=== PATIENT | male | born 1940 | race Caucasian/White ===

== ENCOUNTER 2016-12-25 21:56 | Emergency (ER) | payer OTHER ==
[~2016-12-25] VITALS: Ht 165.1 cm; Wt 83.6 kg
[~2016-12-25 21:56] MED LIST: ASPCH81X PO; ATEN-173 PO; CEPH500C2 PO; SIMV20TA2 PO
[2016-12-25 21:59] VITALS: TEMP 36.6; Ht 165.1 cm; Wt 83.6 kg
[2016-12-25] MEDS ORDERED: NEOMYCIN/POLYMYX/BACITR OINT 15 GM TUBE EXT STA (22:30)
[2016-12-25] MEDS ORDERED: AMOXICIL/CLAVU 875MG HOME PACK PO ONE (22:30)
[2016-12-25] MEDS ORDERED: AMOXICILLIN/CLAVULANATE TAB 875 MG TAB PO ONE (22:30)
--- NOTE | 2016-12-25 22:39 | EMERGENCY ROOM VISIT NOTE ---
History Report prepared by Luisito: Sarita Vogt Under the Supervision of: Dr. Alphonso De Los Santos D.O. First contact with patient: 22:07 Chief Complaint: BITE Stated Complaint: SPIDER BITE ON ELBOW, RED SWOLLEN-RIGHT History of Present Illness The patient is a 76 year old male who presents to the Emergency Room with complaints of worsening swelling of the right elbow starting 2 days [place]. The patient states that he noticed the swelling on his elbow and his tried to drain the swelling and a clear fluid was drained. The patient denies any recent fever, chills or leg pain. Source of History: patient Onset: 2 days [place] Position: elbow (right) Timing: worsening Associated Symptoms: No chills, No fevers Note: Patient denies any leg pain. Review of Systems See HPI for pertinent positives & negatives. A total of 10 systems reviewed and were otherwise negative. Past Medical & Surgical Medical Problems: (1) ABDOM AORTIC ANEURYSM (2) Benign hypertension (3) HYPERLIPIDEMIA NEC/NOS Family History Diabetes mellitus FH: heart disease Social History Smoking Status: Former Smoker Smokeless Tobacco Use: Yes Drug Use: none Marital Status: Housing Status: lives with family Occupation Status: retired Current/Historical Medications Scheduled Amoxicillin & Pot Clavulanate (Augmentin 875-125 mg), 875 MG PO BID Aspirin (Aspirin Chewable), 81 MG PO DAILY Atenolol (Tenormin), 25 MG PO DAILY Simvastatin (Zocor), 20 MG PO QPM Allergies Coded Allergies: No Known Allergies (Unverified , 12/25/16) Physical Exam Vital Signs Date Time Temp Pulse Resp B/P Pulse Ox O2 Delivery O2 Flow Rate FiO2 12/25/16 23:38 66 18 113/71 98 Room Air 12/25/16 21:59 36.6 71 16 124/81 97 Room Air Physical Exam GENERAL: Patient is awake, alert, and in no acute distress. Patient is resting comfortably and showing no signs of anxiety EYES: The conjunctivae are clear. The pupils are round and reactive. EARS, NOSE, MOUTH AND THROAT: The nose is without any evidence of any deformity. Mucous membranes are moist tongue is midline NECK: The neck is nontender and supple. RESPIRATORY: Normal respiratory effort is noted there is no evidence of wheezing rhonchi or rales CARDIOVASCULAR: Regular rate and rhythm noted there no murmurs rubs or gallops normal S1 normal S2 GASTROINTESTINAL: The abdomen is soft. Bowel sounds are present in all quadrants. Abdomen is nontender MUSCULOSKELETAL/EXTREMITIES: There is no evidence of gross deformity full range of motion is noted in the hips and shoulders. Mild erythema and swelling over the right olecronon. Small area of clear drainaged noted. No decrease in ROM of right elbow and ROM not painful. SKIN: There is no obvious evidence of any rash. There are no petechiae, pallor or cyanosis noted. Mild erythema and swelling. Trace pedal edema bilaterally. NEUROLOGIC: Patient is awake alert and oriented x3 strength is symmetric patellar reflexes are 2+ bilaterally Medical Decision & Procedures ER Provider Diagnostic Interpretation: X-ray results as stated below per interpretation by me: Elbow X-Ray: Degenerative changes noted, no definite fracture, small amount of air in the soft tissue over line the olecranon. Medications Administered Medications (Trade) Dose Ordered Sig/Preethi Route Start Time Stop Time Status Last Admin Dose Admin Amoxicillin/ Clavulanate Potassium (Augmentin 875MG Home Pack) 1 homepack UD ONCE PO 12/25/16 22:30 12/25/16 22:33 DC 12/25/16 22:58 1 HOMEPACK Amoxicillin/ Clavulanate Potassium (Augmentin Tab) 875 mg NOW ONCE PO 12/25/16 22:30 12/25/16 22:33 DC 12/25/16 22:58 875 MG Neomycin/ Polymyxin/ Bacitracin (Neosporin Oint) 1 appln ONE STAT EXT 12/25/16 22:30 12/25/16 22:33 DC 12/25/16 22:58 1 APPLN ED Course 2226: The patient was evaluated in room A3. A complete history and physical examination were performed. 2229: Ordered Neosporin Oint 1 appln EXT, Augmentin Tab 875 mg PO, Augmentin 875 mg Home Pack 1 homepack PO. 2300: Upon reevaluation, the patient is hemodynamically stable. I discussed the results and treatment plan with him. he verbalized agreement of the treatment plan. The patient was discharged home. Medical Decision The patient's history was concerning for swelling and redness of the skin. Differential diagnosis: Etiologies such as cellulitis, abscess, MRSA infection, DVT, necrotizing fasciitis, dermatitis, drug eruption, as well as others were entertained.. Nursing notes reviewed. The patient is a 76-year-old male who presented to the emergency department for an evaluation of right elbow swelling. The patient's significant other's wheeze the area until she got clear drainage out of it. She was concerned that it could be a spider bite or some other type of infection. There was erythema over the elbow but there was no significant swelling. The range of motion appeared painless I do not feel this is infection in the joint. Rather I feel is likely an infection of olecranon bursitis. The patient was started on antibiotics in the emergency department. A culture the drainage was obtained. X-rays did show some air in the soft tissue. I do not feel there is any bony abnormality represented on plain x-ray. I discussed the patient's results with him. He was encouraged to continue doing a triple antibiotic dressing as well as continue the antibiotics as prescribed. He was also encouraged to follow-up with his family doctor this week for reevaluation but return to the emergency department immediately if symptoms change worsen or the need arises. Impression Primary Impression: Olecranon bursitis Additional Impression: Cellulitis Scribe Attestation The scribe's documentation has been prepared under my direction and personally reviewed by me in its entirety. I confirm that the note above accurately reflects all work, treatment, procedures, and medical decision making performed by me. Departure Information Dispostion Home / Self-Care Prescriptions Amoxicillin & Pot Clavulanate (Augmentin 875-125 mg) 1 Tab Tab 875 MG PO BID for 7 Days, #14 TAB Prov: Alphonso De Los Santos, 12/25/16 Referrals Poncho Dillon M.D. (PCP) Forms HOME CARE DOCUMENTATION FORM, IMPORTANT VISIT INFORMATION Patient Instructions My [facility] Additional Instructions Continue all medications as prescribed. Continue to put triple antibiotic ointment to the area over the right elbow 2 times a day. Continue taking Motrin and Tylenol as directed for pain. Follow-up with your family this week for reevaluation but return to the emergency Department immediately if symptoms change worsen or if the need arises. Problem Qualifiers
[2016-12-25] MEDS ORDERED: AMOX875T PO (23:34)
[2016-12-25 23:38] VITALS: BP 113/71; PULSE 66; O2SAT 98
--- NOTE | 2016-12-26 06:52 | DIAGNOSTIC IMAGING REPORT ---
RIGHT ELBOW MIN 3 VIEWS ROUTINE CLINICAL HISTORY: Right elbow pain and swelling. No recent trauma. COMPARISON: None FINDINGS: Alignment of the right elbow is anatomic. There is no acute fracture or suspicious osseous lesion. There is no joint effusion. There is moderate spurring of the olecranon at the insertion of the triceps with mild soft tissue swelling. There is irregularity of the medial lateral condyle with calcifications likely within the common flexor and extensor tendons. IMPRESSION: 1. No acute fracture or joint effusion the right elbow. 2. Irregularity of the medial and lateral epicondyles with calcifications likely within the common flexor and extensor tendons. The findings are chronic. 3. Moderate spurring of the olecranon at the insertion of the triceps. Electronically signed by: Paolo Perea M.D. 12/26/2016 6:51 AM Dictated Date/Time: 12/26/2016 6:49 AM
== END 2016-12-26 00:03 | disposition home or self-care (01) ==
LOC: C.EDB 21:58 → C.EDA 12-26 00:03
DX: M70.21 Olecranon bursitis, right elbow (principal); L03.115 Cellulitis of right lower limb; I10 Essential (primary) hypertension; E78.5 Hyperlipidemia, unspecified; Z87.891 Personal history of nicotine dependence; Z79.82 Long term (current) use of aspirin; Z79.899 Other long term (current) drug therapy; Z83.3 Family history of diabetes mellitus; Z82.49 Family history of ischemic heart disease and other diseases of the circulatory system

== ENCOUNTER 2019-10-04 15:06 | Inpatient (IN) ==
--- OUTSIDE RECORDS SUMMARY | 2019-10-04 15:09 | External Medical Summary | Continuity of Care Document ---
:1940 Author Name Shailesh Mai Address Unavailable Unavailable , Care Team Providers Name Role Phone Quintin Mai Unavailable [email or web address] [email or web address], UNKNOWN Unavailable Unavailable Problems Active medical history not documented Allergies and Adverse Reactions Allergy history not documented Medications Medications not documented Procedures Procedures not documented Immunizations Immunizations not documented Plan of Treatment Planned Observations Planned Goals not documented Results No Known Results Results not documented
[2019-10-04] MEDS ORDERED: ACETAMINOPHEN 325 MG TAB PO STA (16:17)
[2019-10-04 16:42] LABS: Appearance Urine Clear (Clear); Bacteria Urine Automated Negative (Negative); Bilirubin Urine Negative (Negative); Blood Urine 2+ (Negative); Color Urine Dark Yellow; Epithelial Cell Urine Auto 20-30 /lpf (0-5); Glucose Urine UA Negative (Negative); Ketones Urine Negative (Negative); Leukocyte Esterase Urine Negative (Negative); Nitrite Urine Negative (Negative); Protein Urine 2+ (Negative); RBC Urine Automated >30 /hpf (0-4); Urobilinogen Urine Negative (Negative)
--- NOTE | 2019-10-04 16:48 | XRay Report ---
XR chest 1V portable CLINICAL HISTORY: fever eval for pna dyspnea COMPARISON STUDY: 04/26/2018 FINDINGS: A slight increase in interstitial prominence throughout both hemithoraces. Mildly tortuous thoracic aorta. No focal or consolidative infiltrative change. IMPRESSION: Mild bilateral interstitial prominence. The above report was generated using voice recognition software. It may contain grammatical, syntax or spelling errors. Electronically signed by: Crispin Arvizu M.D. 10/04/2019 4:46 PM
[2019-10-04 17:05] LABS: Alanine Aminotransferase 57 U/L (12-78); Albumin Level 3.3 gm/dl (3.4-5.0); Aspartate Aminotransferase 56 U/L (15-37); BUN Creatinine Ratio 17.7 (10-20); Blood Urea Nitrogen 21 mg/dl (7-18); Calcium 8.8 mg/dl (8.5-10.1); Carbon Dioxide 25 mmol/L (21-32); Chloride 100 mmol/L (98-107); Est GFR (African American) 70.5; Est GFR (Non-African American) 60.8; Glucose 117 mg/dl (70-99); Potassium 4.1 mmol/L (3.5-5.1); Sodium 132 mmol/L (136-145)
[2019-10-04 17:10] LABS: Alkaline Phosphatase 61 U/L (45-117); Globulin 3.3 gm/dl (2.5-4.0); Total Protein 6.6 gm/dl (6.4-8.2); Troponin I < 0.015 ng/ml (0-0.045)
--- NOTE | 2019-10-04 17:19 | CT Scan Report ---
CT head/brain wo con CT DOSE: 994.59 mGy.cm HISTORY: Mental status change CHAN eval for bleed TECHNIQUE: Multiaxial CT images of the head were performed without the use of intravenous contrast. A dose lowering technique was utilized adhering to the principles of ALARA. Comparison: None. Findings: The paranasal sinuses and mastoid air cells are clear. The calvarium and skull base are int act. The ventricles and sulci are within normal limits. There is no mass, hematoma, midline shift, or acute infarct. Findings of age-related atrophy and chronic small vessel change Impression: No acute intracranial abnormality. Age-related change as discussed. The above report was generated using voice recognition software. It may contain grammatical, syntax or spelling errors. Electronically signed by: Crispin Arvizu M.D. 10/04/2019 5:18 PM
[2019-10-04 18:37] LABS: Basophils # (auto) 0.01 K/uL (0-0.2); Basophils % (auto) 0.2 %; Hematocrit (blood only) 39.5 % (42-52); Hemoglobin 13.5 g/dL (14.0-18.0); Immature Granulocytes # (auto) 0.01 K/uL (0.00-0.02); Immature Granulocytes % (auto) 0.2 %; Lymphocytes # (auto) 0.75 K/uL (1.2-3.4); Lymphocytes % (auto) 14.2 %; Mean Corpuscular Hemoglobin 32.1 pg (25-34); Mean Corpuscular Hgb Conc 34.2 g/dL (32-36); Mean Platelet Volume 10.1 fL (7.4-10.4); Monocytes % (auto) 5.7 %; Neutrophils # (auto) 4.21 K/uL (1.4-6.5); Neutrophils % (auto) 79.7 %; Platelet Count 88 K/uL (130-400); Platelet Estimate Decreased (Normal); RDW Coefficient of Variation 13.6 % (11.5-14.5); RDW Standard Deviation 47.3 fL (36.4-46.3); White Blood Count 5.28 K/uL (4.8-10.8)
--- NOTE | 2019-10-04 19:59 | History & Physical Report ---
Date of Service October 04, 2019 Assessment & Plan (1) Fever: (2) Generalized weakness: Pt is 78 y/o M with PMH CAD s/p WALKER to [facility] in 03/2018, AAA s/p repair, HTN, dyslipidemia, DM II presented with c/o generalized weakness, myalgias, CHAN x 3 days. C/O fever 101F yesterday and 102F today. No cough, SOB, N/V/D. Denies known tick bites or ill contacts, recent travel, rashes. Was started on doxycycline yesterday for possible lyme disease. Yesterday outpatient with normal CK. In ER afebrile, P: 83, R: 20, BP: 123/69, 97% on RA. WBC: 5, H/H: 13.5/39.5, Plt: 88, Na: 132, BUN: 21, Cr: 1.16, GFR: 60.8, POC Lactic acid: 0.91, Negative flu swab, UA not consistent with UTI CT Head: no acute changes CXR: no infiltrate -Had negative Lyme titer yesterday at clinic -Peripheral smear to r/o anaplasmosis -Blood cultures pending -Urine culture pending -Given Tylenol in ER with resolution of CHAN and improvement of myalgias and reported decreased weakness -Zosyn for now -CBC, BMP in am (3) Coronary artery disease: CAD s/p WALKER to RCA in 03/2018 No CP, SOB -Continue ASA, metoprolol, atorvastatin, Effient (4) Diabetes mellitus, type II: A1c: 6.1 on08/15/19 -Hold metformin -Novolog sliding scale per protocol (5) HTN (hypertension): Stable -Continue metoprolol DVT Prophylaxis -SCDs for now with low Plt Full Code as per discussion with pt Follows with Dr Dillon for routine care Pt was seen and care coordinated with Dr Devine. See addendum History of Present Illness Chief Complaint: Weakness Primary Care Provider: Poncho Dillon MD Pt is 78 y/o M with PMH CAD s/p WALKER to RCA in 03/2018, AAA s/p repair, HTN, dyslipidemia, DM II presented to ER with c/o weakness, myalgias x 3 days. C/O fever 101F yesterday and 102F today. C/O diffuse myalgias and generalized weakness. C/O frontal/parietal CHAN for past 2-3 days. Pt states took Aleve yesterday without relief of CHAN. 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 Denies diaphoresis, N/V/D/C, CHAN, dizziness, syncope, vision changes, neck pain, photophobia, CP, SOB, orthopnea, palpitations, cough, sore throat, choking, otalgia, rhinorrhea, abdominal pain, paresthesias, extremity edema, rashes, urinary symptoms, known tick bites. Denies ill contacts, recent travel. Had influenza vaccine 07/2019. Pt seen by PCP yesterday. Was started on doxycycline for possible Lyme. Had negative Lyme titer yesterday. Also had CK WNL, WBC: 6.9, Plt: 125, TSH: 1.1. Allergies Allergy/AdvReac Type Severity Reaction Status Date / Time No Known Allergies Allergy Verified 10/04/19 16:52 Home Medications Home Medications Medication Instructions Recorded Confirmed Type aspirin 81 mg PO DAILY 10/04/19 10/04/19 History atorvastatin 40 mg PO QAM 10/04/19 10/04/19 History doxycycline hyclate 100 mg PO BID 10/04/19 10/04/19 History metformin 500 mg PO BIDM 10/04/19 10/04/19 History metoprolol succinate 25 mg PO QAM 10/04/19 10/04/19 History nitroglycerin 0.4 mg SUBLINGUAL DIRECTED PRN 10/04/19 10/04/19 History prasugrel 10 mg PO QAM 10/04/19 10/04/19 History Past Med/Surg History Medical History Diabetes mellitus, type II (Chronic) Dyslipidemia (Chronic) HTN (hypertension) (Chronic) Coronary artery disease (Chronic) Surgical History S/P AAA repair (Chronic) History of cardiac cath (Chronic) 03/2018 - WALKER to [facility] No pertinent past surgical history Family History Other Cancer Diabetes Heart disease Hypertension Social History Feels Safe at Home: Yes Smoking Status: Current every day smoker Hx Alcohol Use: No Hx Substance Use: No Review of Systems Review of Systems: All systems reviewed & are unremarkable except as noted in HPI & below Physical Exam Physical Exam: General: no distress, WDWN Head: normocephalic, atraumatic Eyes: PERRL, EOM's intact, conjunctiva non-injected, anicteric ENT: normal inspection external ears, nose, mucous membranes moist Neck: supple, trachea midline, non-tender Lungs: clear, no respiratory distress, no wheezing/rhonchi/rales CV: RRR, no murmur, no pretibial edema Abd: normal BS, soft, non-tender Ext: no cyanosis, no calf tenderness; strength 4/5 throughout Neuro: A&O x 3, no focal deficits noted, normal affect Skin: warm, dry Results & Data Vital Signs (Past 12 Hours) Vital Signs Temp Pulse Resp BP Pulse Ox 10/04/19 19:01 68 19 96 10/04/19 19:00 65 21 114/66 97 10/04/19 18:31 69 20 97 10/04/19 18:30 70 24 116/69 95 10/04/19 18:01 70 21 95 10/04/19 18:00 70 24 114/66 95 10/04/19 17:31 76 26 H 95 10/04/19 17:30 74 26 H 119/65 95 10/04/19 17:05 80 27 H 94 10/04/19 17:03 79 23 115/62 94 10/04/19 15:27 37.5 C 83 20 123/69 97 Laboratory Results Short CBC 10/04/19 10/04/19 10/04/19 Range/Units 16:25 16:25 17:47 WBC Cancelled 5.28 Hgb Cancelled 13.5 L Hct Cancelled 39.5 L Plt Count Cancelled 88 L Sodium 132 L (136-145) mmol/L AST 56 H (15-37) U/L BMP 10/04/19 16:25 Sodium 132 L Potassium 4.1 Chloride 100 Carbon Dioxide 25 BUN 21 H Creatinine 1.16 Glucose 117 H Calcium 8.8 Cardiac Enzymes 10/04/19 Range/Units 16:25 Troponin I < 0.015 (0-0.045) ng/ml Liver Function 10/04/19 Range/Units 16:25 Total Bilirubin 1.0 (0.2-1) mg/dl AST 56 H (15-37) U/L ALT 57 (12-78) U/L Alkaline Phosphatase 61 (45-117) U/L Albumin 3.3 L (3.4-5.0) gm/dl Urine 10/04/19 Range/Units 16:28 Urine Color Dark Yellow Urine Appearance Clear (Clear) Urine pH 6.0 (4.5-7.5) Ur Specific [place] 1.020 (1.000-1.030) Urine Protein 2+ H (Negative) Urine Glucose (UA) Negative (Negative) Diagnostic Findings CT HEAD: Impression: No acute intracranial abnormality. Age-related change as discussed. CXR: IMPRESSION: Mild bilateral interstitial prominence. Code Status & VTE Plan VTE Prophylaxis Plan VTE Prophylaxis will be ordered: Yes Supervising Physician Co-Signing Physician Notes I, Dr. Jonas Devine, have seen and examined the patient and would like to comment that Eyad Maldonado is a gentleman with headaches and reported fever that has been going on for 3 days. He has had negative Lyme test workup and normal creatinine kinase as outpatient. He has reported weakness but no focal motor deficits on physical exam. He ambulates at home without assisted devices. Currently no headache in the ED. His physical exam is pertinent for absence of nuchal rigidity and absence of photophobia. At this time, will monitor patient on broad spectrum antibiotic of Zosyn. Minimal to no suspicion for bacterial meningitis and does not need droplet precautions. will send peripheral smear to work up and infectious cause of weakness. Will get PT/OT evaluations Physical exam: General: no acute distress HEENT: no neck rigidity, extraoccular movements intact, Lungs: clear to auscultation bilaterally Heart: regular rate Abdomen: soft, nontender, positive bowel sounds Extremities: no edema Agree with other assessment and plans as documented by physician insurance account assistant My colleague Dr. Campbell will be following the patient as hospitalist starting on 10/05/19 (1) Fever Fever type: unspecified Qualified Code(s): R50.9 - Fever, unspecified
[2019-10-04] MEDS ORDERED: CONSULT PHARMACY STA (20:00)
[2019-10-04] MEDS ORDERED: PIPERACILLIN/TAZOBACTAM 4.5 GM/120ML D5W IV STA (20:11)
[2019-10-04] MEDS ORDERED: CARBOHYDRATES FOR HYPOGLYCEMIA PO PRN (21:07)
[2019-10-04] MEDS ORDERED: GLUCAGON FOR INJ 1 MG VIAL SQ PRN (21:07)
[2019-10-04] MEDS ORDERED: GLUCOSE 10 TABS/TUBE PO PRN (21:07)
[2019-10-04] MEDS ORDERED: NITROGLYCERIN SL 0.4 MG/TAB TAB SL PRN (21:07)
[2019-10-04] MEDS ORDERED: GLUCOSE 40% GEL 15 GM TUBE PO PRN (21:07)
[2019-10-04] MEDS ORDERED: DEXTROSE 50% 50 ML SYRINGE IV PRN (21:07)
[2019-10-04] MEDS ORDERED: PIPERACILL/TAZOBAC CONSULT ACTIVE PRN (21:30)
[2019-10-04] MEDS: INSULIN ASPART 100 UNITS/ML 3 ML PEN SC SCH (21:50)
[2019-10-04] MEDS ORDERED: SODIUM CHLORIDE 0.9% 1000ML 1,000 ML IV SCH (22:00)
--- NOTE | 2019-10-04 23:32 | Emergency Department Note ---
Entered by Oneil Acharya acting as a scribe for History of Present Illness General Chief complaint: Fever Stated complaint: FEVER,WEAK,CAN'T WALK WELL Time Seen by Provider: 10/04/19 16:06 Source: patient History of Present Illness Onset (ago): day(s) 3 Location: upper extremity, lower extremity, left and right Pain Consistency: + constant Quality: + other (weakness) Associated symptoms: + denies other symptoms (neck pain, neck stiffness, joint pain), + fever/chills, + headaches and + other (muscle aches, intermittent loss of bladder control, intermittent runny nose); no chest pain, no cough, no nausea/vomiting, no rash and no shortness of breath The patient is a 78 y/o male who presents to the ED w/ CC of constant diffuse weakness beginning three days ago. The patient states he has been sick for three days and very weak. He reports he is not able to get up on his own and requires assistance when walking. The patient notes all of his muscles have been hurting and he has had chills. He states he was evaluated by his PCP yesterday and had a fever of 101.3 degrees F. The patient reports he had three tubes of blood work performed and started on doxycycline for possible Lyme's Disease. He notes he did not have a flu swab performed but he has had the flu shot this year. The patient states he has also had a frontal headache for three days that worsens with light. He reports he rarely gets headaches. The patient notes intermittent loss of bladder control and a runny nose. He states a history of bladder cancer, and he takes aspirin daily for a stent replacement. The patient denies vomiting, nausea, rash, chest pain, shortness of breath, coughing, neck pain, neck stiffness, and joint pain. Home Medications Home Medications Medication Instructions Recorded Confirmed Type aspirin 81 mg PO DAILY 10/04/19 10/04/19 History atorvastatin 40 mg PO QAM 10/04/19 10/04/19 History doxycycline hyclate 100 mg PO BID 10/04/19 10/04/19 History metformin 500 mg PO BIDM 10/04/19 10/04/19 History metoprolol succinate 25 mg PO QAM 10/04/19 10/04/19 History nitroglycerin 0.4 mg SUBLINGUAL DIRECTED PRN 10/04/19 10/04/19 History prasugrel 10 mg PO QAM 10/04/19 10/04/19 History Allergies Allergy/AdvReac Type Severity Reaction Status Date / Time No Known Allergies Allergy Verified 10/04/19 16:52 Past Med/Surg History Medical History Diabetes mellitus, type II (Chronic) Dyslipidemia (Chronic) HTN (hypertension) (Chronic) Coronary artery disease (Chronic) Surgical History S/P AAA repair (Chronic) History of cardiac cath (Chronic) 03/2018 - WALKER to RCA No pertinent past surgical history Family History Other Cancer Diabetes Heart disease Hypertension Social History Preferred Language: Welsh Communication Ability: Effective Beliefs That Will Affect Care: None Current Living Situation: Spouse Other Information That Helps Us Care for You: No Feels Safe at Home: Yes Safety Concerns: Feels Safe At This Time Smoking Status: Current every day smoker Tobacco Type: cigarettes ; Cigarettes Per Day: less than pack ; Second Hand Exposure: No ; Tobacco Cessation Education Requested by Patient: No Hx Alcohol Use: No Hx Substance Use: No Review of Systems See HPI for pertinent positives & negatives. and A total of 10 systems reviewed and were otherwise negative Physical Exam Vital Signs Vital Signs - 24 hr 10/04/19 15:27 10/04/19 17:03 10/04/19 17:05 Temperature 37.5 C Temperature Source Oral Sepsis Recent Fever Within 48 Hours No Sepsis Action Taken by Nursing No Action Required Pulse Rate 83 79 80 Pulse Rate from SpO2 Sensor 79 80 Respiratory Rate 20 23 27 H Respiratory Effort / Characteristics Non-Labored Spontaneous Respiratory Depth Normal Blood Pressure 123/69 115/62 Blood Pressure Mean 87 79 Blood Pressure Position Sitting Pulse Oximetry 97 94 94 Oxygen Delivery Method Room Air Room Air Room Air 10/04/19 17:30 10/04/19 17:31 10/04/19 18:00 Temperature Temperature Source Sepsis Recent Fever Within 48 Hours Sepsis Action Taken by Nursing Pulse Rate 74 76 70 Pulse Rate from SpO2 Sensor 75 75 70 Respiratory Rate 26 H 26 H 24 Respiratory Effort / Characteristics Respiratory Depth Blood Pressure 119/65 114/66 Blood Pressure Mean 83 82 Blood Pressure Position Pulse Oximetry 95 95 95 Oxygen Delivery Method Room Air Room Air Room Air 10/04/19 18:01 10/04/19 18:30 10/04/19 18:31 Temperature Temperature Source Sepsis Recent Fever Within 48 Hours Sepsis Action Taken by Nursing Pulse Rate 70 70 69 Pulse Rate from SpO2 Sensor 70 69 69 Respiratory Rate 21 24 20 Respiratory Effort / Characteristics Respiratory Depth Blood Pressure 116/69 Blood Pressure Mean 84 Blood Pressure Position Pulse Oximetry 95 95 97 Oxygen Delivery Method Room Air Room Air Room Air 10/04/19 19:00 10/04/19 19:01 10/04/19 19:19 Temperature 37.7 C H Temperature Source Oral Sepsis Recent Fever Within 48 Hours Sepsis Action Taken by Nursing Pulse Rate 65 68 Pulse Rate from SpO2 Sensor 66 67 Respiratory Rate 21 19 Respiratory Effort / Characteristics Respiratory Depth Blood Pressure 114/66 Blood Pressure Mean 82 Blood Pressure Position Pulse Oximetry 97 96 Oxygen Delivery Method Room Air Room Air 10/04/19 19:30 10/04/19 19:31 Temperature Temperature Source Sepsis Recent Fever Within 48 Hours Sepsis Action Taken by Nursing Pulse Rate 69 70 Pulse Rate from SpO2 Sensor Respiratory Rate 19 16 Respiratory Effort / Characteristics Respiratory Depth Blood Pressure 114/60 Blood Pressure Mean 78 Blood Pressure Position Pulse Oximetry 98 96 Oxygen Delivery Method Room Air Room Air Constitutional: Vital signs reviewed. Eyes: Pupils are equal round reactive to light. Conjunctiva are noninjected. ENT: Pharynx is clear without erythema or exudate. Mucous membranes are moist. Neck supple without meningeal signs. Respiratory: Clear to auscultation bilaterally. Breath sounds are equal bilaterally. Cardiovascular: Regular rate and rhythm. No rubs or gallops. GI: Soft, nondistended and nontender. Bowel sounds are present. Musculoskeletal: No peripheral edema. No lower extremity tenderness. Integumentary: No cyanosis. Neurological: The patient is awake and alert. Cranial nerves II-XII are intact. Motor is 5 out of 5 all extremities. Sensation is intact to light touch all extremities. Normal speech. No pronator drift. Psychiatric: Normal affect. Course 1608: Past medical records reviewed. The patient was evaluated in room A09B. A complete history and physical exam was performed. 1823: Upon reevaluation, the patient is resting comfortably. His headache resolved. I discussed laboratory and radiographic results with him and recommenced a hospitalist evaluation for possible bacteremia. He verbalized agreement of the treatment plan. The patient will be evaluated for further management and care. 1846: I reviewed the patient's case with Shameka Lang PA-C, [facility] Hospitalist - attending Dr. Devine. She will evaluate the patient for further management. Administered Medications Sodium Chloride (Nss 1000ml) 1,000 mls @ 80 mls/hr IV .[id number] EARL Stop: 10/05/19 10:29 Last Admin: 10/04/19 21:46 Dose: 80 mls/hr Documented by: [id number] Insulin Aspart (Novolog Flexpen) 0 units SC ACHS EARL Stop: 11/03/19 21:06 Last Admin: 10/04/19 21:50 Dose: Not Given Documented by: [id number] Cosigned by: [id number] Discontinued Medications Acetaminophen (Tylenol) 650 mg PO ONE STA Stop: 10/04/19 16:18 Last Admin: 10/04/19 16:33 Dose: 650 mg Documented by: [id number] Miscellaneous Information (Pharmacy Consult) 1 ea N/A NOW STA Stop: 10/04/19 20:01 Last Admin: 10/04/19 20:27 Dose: Not Given Documented by: [id number] Piperacillin Sod/Tazobactam Sod (Zosyn) 4.5 gm IV NOW STA Stop: 10/04/19 20:12 Last Admin: 10/04/19 20:27 Dose: 4.5 gm Documented by: [id number] Medical Decision Making Differential Diagnosis Differential diagnosis includes: meningitis, influenza, Lyme's Disease, pneumonia, UTI, bacteremia. Medical Records Attestation: I reviewed the patient's medical records. I did perform a limited focused review of portions of the patient's old chart on the electronic medical record. The patient has had no recent pertinent visits to this hospital. Lab results obtained from [facility] on the : ESR of 9, Lyme's testing negative, WBC of 6.9, normal AST and ALT. Home Medications Current Medication List: was personally reviewed by me Laboratory Data Attestation: I reviewed the patient's lab results. Result diagrams: 10/04/19 17:47 10/04/19 16:25 Lab Results 10/04/19 10/04/19 10/04/19 Range/Units 16:23 16:25 16:25 WBC Cancelled RBC Cancelled Hgb Cancelled Hct Cancelled MCV Cancelled MCH Cancelled MCHC Cancelled RDW Std Deviation Cancelled RDW Coeff of Edilberto Cancelled Plt Count Cancelled MPV Cancelled Immature Gran % (Auto) Cancelled Neut % (Auto) Cancelled Lymph % (Auto) Cancelled Carson % (Auto) Cancelled Eos % (Auto) Cancelled Baso % (Auto) Cancelled Immature Gran # (Auto) Cancelled Neut # (Auto) Cancelled Lymph # (Auto) Cancelled Carson # (Auto) Cancelled Eos # (Auto) Cancelled Baso # (Auto) Cancelled Absolute Nucleated RBC Cancelled Nucleated RBC % (auto) Cancelled Neutrophils % (Manual) Cancelled Band Neutrophils % Cancelled Lymphocytes % (Manual) Cancelled Prolymphocyte % Cancelled Reactive Lymphs % (Man) Cancelled Monocytes % (Manual) Cancelled Eosinophils % (Manual) Cancelled Basophils % (Manual) Cancelled Metamyelocytes % (Man) Cancelled Myelocytes % (Man) Cancelled Promyelocytes % (Man) Cancelled Blast Cells % (Manual) Cancelled Plasma Cell % (Manual) Cancelled Other Cells % Cancelled Nucleated RBC % Cancelled Neutrophils # (Manual) Cancelled Band Neutrophils # Cancelled Total Absolute Neuts Cancelled Lymphocytes # (Manual) Cancelled Prolymphocyte # Cancelled Reactive Lymphs # Cancelled Total Abs Lymphocytes Cancelled Monocytes # (Manual) Cancelled Eosinophils # (Manual) Cancelled Basophils # (Manual) Cancelled Metamyelocytes # (Man) Cancelled Myelocytes # (Manual) Cancelled Promyelocytes # (Man) Cancelled Blast Cells # (Man) Cancelled Plasma Cell # (Manual) Cancelled Other Cells # Cancelled Nucleated RBCs # (Man) Cancelled Hypersegmented Neuts Cancelled Hyposegmented Neuts Cancelled Hypogranular Neuts Cancelled Large Granular Lymphs Cancelled # Lrg Granular Lymphs Cancelled Hairy Cells Cancelled Smudge Cells Cancelled Toxic Granulation Cancelled Toxic Vacuolation Cancelled Dohle Bodies Cancelled Lisa Rods Cancelled Platelet Estimate Cancelled Hypogranular Platelets Cancelled Clumped Platelets Cancelled Giant Platelets Cancelled Platelet Satelliting Cancelled RBC Morphology Cancelled Polychromasia Cancelled Hypochromasia Cancelled Poikilocytosis Cancelled Basophilic Stippling Cancelled Anisocytosis Cancelled Microcytosis Cancelled Macrocytosis Cancelled Spherocytes Cancelled Pappenheimer Bodies Cancelled Sickle Cells Cancelled Target Cells Cancelled Tear Drop Cells Cancelled Ovalocytes Cancelled Stomatocytes Cancelled [place] Bodies Cancelled Echinocytes Cancelled Acanthocytes (Spur) Cancelled Rouleaux Cancelled RBC Agglutinates Cancelled Schistocytes Cancelled RBC Morph Comment Cancelled Sezary Cell Cancelled Sodium 132 L (136-145) mmol/L Potassium 4.1 (3.5-5.1) mmol/L Chloride 100 (98-107) mmol/L Carbon Dioxide 25 (21-32) mmol/L Anion Gap 7.0 (3-11) BUN 21 H (7-18) mg/dl Creatinine 1.16 (0.6-1.4) mg/dl Est Cr Clr Drug Dosing Not Reportable Est GFR ( Amer) 70.5 Est GFR (Non-Af Amer) 60.8 BUN/Creatinine Ratio 17.7 (10-20) Glucose 117 H (70-99) mg/dl POC Lactic Acid Barber (0.90-1.70) mmol/L Calcium 8.8 (8.5-10.1) mg/dl Total Bilirubin 1.0 (0.2-1) mg/dl AST 56 H (15-37) U/L ALT 57 (12-78) U/L Alkaline Phosphatase 61 (45-117) U/L Troponin I < 0.015 (0-0.045) ng/ml Total Protein 6.6 (6.4-8.2) gm/dl Albumin 3.3 L (3.4-5.0) gm/dl Globulin 3.3 (2.5-4.0) gm/dl Albumin/Globulin Ratio 1.0 (0.9-2) Urine Color Urine Appearance (Clear) Urine pH (4.5-7.5) Ur Specific Pella (1.000-1.030) Urine Protein (Negative) Urine Glucose (UA) (Negative) Urine Ketones (Negative) Urine Blood (Negative) Urine Nitrite (Negative) Urine Bilirubin (Negative) Urine Urobilinogen (Negative) Ur Leukocyte Esterase (Negative) Urine WBC (Auto) (0-5) /hpf Urine RBC (Auto) (0-4) /hpf U Hyaline Cast (Auto) (0-5) /lpf U Epithel Cells (Auto) (0-5) /lpf Urine Bacteria (Auto) (Negative) Anaplasma Smear Influenza Type A Ag Neg for Influ A (Neg) Influenza Type B Ag Neg for Influ B (Neg) 10/04/19 10/04/19 10/04/19 Range/Units 16:28 16:41 17:47 WBC 5.28 RBC 4.20 L Hgb 13.5 L Hct 39.5 L MCV 94.0 MCH 32.1 MCHC 34.2 RDW Std Deviation 47.3 H RDW Coeff of Edilberto 13.6 Plt Count 88 L MPV 10.1 Immature Gran % (Auto) 0.2 Neut % (Auto) 79.7 Lymph % (Auto) 14.2 Carson % (Auto) 5.7 Eos % (Auto) 0.0 Baso % (Auto) 0.2 Immature Gran # (Auto) 0.01 Neut # (Auto) 4.21 Lymph # (Auto) 0.75 L Carson # (Auto) 0.30 Eos # (Auto) 0.00 Baso # (Auto) 0.01 Absolute Nucleated RBC 0.00 Nucleated RBC % (auto) 0.0 Neutrophils % (Manual) Band Neutrophils % Lymphocytes % (Manual) Prolymphocyte % Reactive Lymphs % (Man) Monocytes % (Manual) Eosinophils % (Manual) Basophils % (Manual) Metamyelocytes % (Man) Myelocytes % (Man) Promyelocytes % (Man) Blast Cells % (Manual) Plasma Cell % (Manual) Other Cells % Nucleated RBC % Neutrophils # (Manual) Band Neutrophils # Total Absolute Neuts Lymphocytes # (Manual) Prolymphocyte # Reactive Lymphs # Total Abs Lymphocytes Monocytes # (Manual) Eosinophils # (Manual) Basophils # (Manual) Metamyelocytes # (Man) Myelocytes # (Manual) Promyelocytes # (Man) Blast Cells # (Man) Plasma Cell # (Manual) Other Cells # Nucleated RBCs # (Man) Hypersegmented Neuts Hyposegmented Neuts Hypogranular Neuts Large Granular Lymphs # Lrg Granular Lymphs Hairy Cells Smudge Cells Toxic Granulation Toxic Vacuolation Dohle Bodies Lisa Rods Platelet Estimate Decreased L Hypogranular Platelets Clumped Platelets Giant Platelets Platelet Satelliting RBC Morphology Polychromasia Hypochromasia Poikilocytosis Basophilic Stippling Anisocytosis Microcytosis Macrocytosis Spherocytes Pappenheimer Bodies Sickle Cells Target Cells Tear Drop Cells Ovalocytes Stomatocytes [place] Bodies Echinocytes Acanthocytes (Spur) Rouleaux RBC Agglutinates Schistocytes RBC Morph Comment Sezary Cell Sodium (136-145) mmol/L Potassium (3.5-5.1) mmol/L Chloride (98-107) mmol/L Carbon Dioxide (21-32) mmol/L Anion Gap (3-11) BUN (7-18) mg/dl Creatinine (0.6-1.4) mg/dl Est Cr Clr Drug Dosing Est GFR ( Amer) Est GFR (Non-Af Amer) BUN/Creatinine Ratio (10-20) Glucose (70-99) mg/dl POC Lactic Acid Barber 0.91 (0.90-1.70) mmol/L Calcium (8.5-10.1) mg/dl Total Bilirubin (0.2-1) mg/dl AST (15-37) U/L ALT (12-78) U/L Alkaline Phosphatase (45-117) U/L Troponin I (0-0.045) ng/ml Total Protein (6.4-8.2) gm/dl Albumin (3.4-5.0) gm/dl Globulin (2.5-4.0) gm/dl Albumin/Globulin Ratio (0.9-2) Urine Color Dark Yellow Urine Appearance Clear (Clear) Urine pH 6.0 (4.5-7.5) Ur Specific Pella 1.020 (1.000-1.030) Urine Protein 2+ H (Negative) Urine Glucose (UA) Negative (Negative) Urine Ketones Negative (Negative) Urine Blood 2+ H (Negative) Urine Nitrite Negative (Negative) Urine Bilirubin Negative (Negative) Urine Urobilinogen Negative (Negative) Ur Leukocyte Esterase Negative (Negative) Urine WBC (Auto) 1-5 (0-5) /hpf Urine RBC (Auto) >30 H (0-4) /hpf U Hyaline Cast (Auto) 1-5 (0-5) /lpf U Epithel Cells (Auto) 20-30 H (0-5) /lpf Urine Bacteria (Auto) Negative (Negative) Anaplasma Smear See Comment Influenza Type A Ag (Neg) Influenza Type B Ag (Neg) 10/04/19 Range/Units 17:47 WBC RBC Hgb Hct MCV MCH MCHC RDW Std Deviation RDW Coeff of Edilberto Plt Count MPV Immature Gran % (Auto) Neut % (Auto) Lymph % (Auto) Carson % (Auto) Eos % (Auto) Baso % (Auto) Immature Gran # (Auto) Neut # (Auto) Lymph # (Auto) Carson # (Auto) Eos # (Auto) Baso # (Auto) Absolute Nucleated RBC Nucleated RBC % (auto) Neutrophils % (Manual) Band Neutrophils % Lymphocytes % (Manual) Prolymphocyte % Reactive Lymphs % (Man) Monocytes % (Manual) Eosinophils % (Manual) Basophils % (Manual) Metamyelocytes % (Man) Myelocytes % (Man) Promyelocytes % (Man) Blast Cells % (Manual) Plasma Cell % (Manual) Other Cells % Nucleated RBC % Neutrophils # (Manual) Band Neutrophils # Total Absolute Neuts Lymphocytes # (Manual) Prolymphocyte # Reactive Lymphs # Total Abs Lymphocytes Monocytes # (Manual) Eosinophils # (Manual) Basophils # (Manual) Metamyelocytes # (Man) Myelocytes # (Manual) Promyelocytes # (Man) Blast Cells # (Man) Plasma Cell # (Manual) Other Cells # Nucleated RBCs # (Man) Hypersegmented Neuts Hyposegmented Neuts Hypogranular Neuts Large Granular Lymphs # Lrg Granular Lymphs Hairy Cells Smudge Cells Toxic Granulation Toxic Vacuolation Dohle Bodies Lisa Rods Platelet Estimate Hypogranular Platelets Clumped Platelets Giant Platelets Platelet Satelliting RBC Morphology Polychromasia Hypochromasia Poikilocytosis Basophilic Stippling Anisocytosis Microcytosis Macrocytosis Spherocytes Pappenheimer Bodies Sickle Cells Target Cells Tear Drop Cells Ovalocytes Stomatocytes [place] Bodies Echinocytes Acanthocytes (Spur) Rouleaux RBC Agglutinates Schistocytes RBC Morph Comment Sezary Cell Sodium (136-145) mmol/L Potassium (3.5-5.1) mmol/L Chloride (98-107) mmol/L Carbon Dioxide (21-32) mmol/L Anion Gap (3-11) BUN (7-18) mg/dl Creatinine (0.6-1.4) mg/dl Est Cr Clr Drug Dosing Est GFR ( Amer) Est GFR (Non-Af Amer) BUN/Creatinine Ratio (10-20) Glucose (70-99) mg/dl POC Lactic Acid Barber (0.90-1.70) mmol/L Calcium (8.5-10.1) mg/dl Total Bilirubin (0.2-1) mg/dl AST (15-37) U/L ALT (12-78) U/L Alkaline Phosphatase (45-117) U/L Troponin I (0-0.045) ng/ml Total Protein (6.4-8.2) gm/dl Albumin (3.4-5.0) gm/dl Globulin (2.5-4.0) gm/dl Albumin/Globulin Ratio (0.9-2) Urine Color Urine Appearance (Clear) Urine pH (4.5-7.5) Ur Specific Pella (1.000-1.030) Urine Protein (Negative) Urine Glucose (UA) (Negative) Urine Ketones (Negative) Urine Blood (Negative) Urine Nitrite (Negative) Urine Bilirubin (Negative) Urine Urobilinogen (Negative) Ur Leukocyte Esterase (Negative) Urine WBC (Auto) (0-5) /hpf Urine RBC (Auto) (0-4) /hpf U Hyaline Cast (Auto) (0-5) /lpf U Epithel Cells (Auto) (0-5) /lpf Urine Bacteria (Auto) (Negative) Anaplasma Smear Cancelled Influenza Type A Ag (Neg) Influenza Type B Ag (Neg) Imaging Data Radiologist's Impression: Radiology results as stated below per my review and the radiologist's interpretation: CT head/brain wo con CT DOSE: 994.59 mGy.cm HISTORY: Mental status change CHAN eval for bleed TECHNIQUE: Multiaxial CT images of the head were performed without the use of intravenous contrast. A dose lowering technique was utilized adhering to the principles of ALARA. Comparison: None. Findings: The paranasal sinuses and mastoid air cells are clear. The calvarium and skull base are intact. The ventricles and sulci are within normal limits. There is no mass, hematoma, midline shift, or acute infarct. Findings of age- related atrophy and chronic small vessel change Impression: No acute intracranial abnormality. Age-related change as discussed. The above report was generated using voice recognition software. It may contain grammatical, syntax or spelling errors. Electronically signed by: Crispin Arvizu M.D. 10/04/2019 5:18 PM XR chest 1V portable CLINICAL HISTORY: fever eval for pna dyspnea COMPARISON STUDY: 04/26/2018 FINDINGS: A slight increase in interstitial prominence throughout both hemithoraces. Mildly tortuous thoracic aorta. No focal or consolidative infiltrative change. IMPRESSION: Mild bilateral interstitial prominence. The above report was generated using voice recognition software. It may contain grammatical, syntax or spelling errors. Electronically signed by: Crispin Arvizu M.D. 10/04/2019 4:46 PM ECG Data Attestation: I personally reviewed and interpreted this ECG as follows: Indication: + weakness Rate (beats per minute): 80 Rhythm: + sinus rhythm ECG Intervals/blocks: + Right Bundle branch block ECG ST segments: no ST elevation ECG Findings: + PVCs Blood Pressure Blood Pressure Findings: Elevated blood pressure Blood Pressure Disposition: elevated BP felt to be situational MDM Narrative I did evaluate the patient as noted above. The patient is presenting with generalized weakness. He also developed a fever yesterday. He complains of pain all over his body and describes it as a muscle pain. He also has a frontal headache. IV access was established. The patient was placed on a continuous personnel monitor. I did treat him with Tylenol p.o. I did order and personally review the patient's 12-lead EKG as described above. He has a right bundle branch block. I did order and personally reviewed the images of the patient's chest x-ray as described above. There is no evidence of pneumonia. I did order a urine analysis. He has hematuria without signs of infection. I did order and review the patient's blood work as noted in the electronic medical record. His white blood cell count is not elevated. He is anemic. Sodium is 132. Troponin is negative. Rapid flu testing is negative. I did order a CT of the head. I did review the images myself as well as the radiology report as described above. There is no evidence of bleed. I did reevaluate the patient. I did discuss the test results with him. He states that his headache is now completely resolved. I therefore felt that meningitis was extremely unlikely given resolution of his headache with Tylenol. Due to his severe generalized weakness I did feel he needed to be hospitalized. He is unable to get up and go to the bathroom without assistance. He also has a fever with an unknown cause. I did obtain records from the [facility] system and he did have a Lyme test yesterday which was negative. I did discuss the case with the hospitalist and supportive employment case manager. Impression & Plan Generalized weakness, Fever, Headache, Acute hyponatremia, Myalgia Discharge Plan Visit Data *Final* Discharge Date/Time: 10/04/19 20:38 Chief Complaint: Fever Stated Complaint: FEVER,WEAK,CAN'T WALK WELL ED Provider: Warner Joshi Discharge Problem: Generalized weakness, Fever, Headache, Acute hyponatremia, Myalgia Patient Disposition: Admitted As Inpatient Discharge Instructions Interventions: ED Discharge Assessment Last Done: 10/04/19 20:38 Discharge Problem: Fever Qualifiers: Fever type: unspecified Qualified Code(s): R50.9 - Fever, unspecified Headache Qualifiers: Headache type: unspecified Headache chronicity pattern: acute headache Intractability: not intractable Qualified Code(s): R51 - Headache The scribe's documentation has been prepared under my direction and personally reviewed by me in its entirety. I confirm that the note above accurately reflects all work, treatment, procedures, and medical decision making performed by me.
[2019-10-05] MEDS: PIPERACILLIN/TAZOBACTAM 3.375 GM in DEXTROSE 5% 100 ML IV SCH ×3 (00:54→16:24)
[2019-10-05] MEDS: ACETAMINOPHEN 325 MG TAB PO PRN ×4 (04:54→20:47)
[2019-10-05 06:03] LABS: Hematocrit (blood only) 36.9 % (42-52); Hemoglobin 12.7 g/dL (14.0-18.0); Mean Corpuscular Hemoglobin 32.2 pg (25-34); Mean Corpuscular Hgb Conc 34.4 g/dL (32-36); Mean Corpuscular Volume 93.7 fL (80-100); RDW Coefficient of Variation 13.5 % (11.5-14.5); RDW Standard Deviation 46.7 fL (36.4-46.3); Red Blood Count 3.94 M/uL (4.7-6.1); White Blood Count 5.08 K/uL (4.8-10.8)
[2019-10-05 06:10] LABS: Mean Platelet Volume 9.8 fL (7.4-10.4); Platelet Count 86 K/uL (130-400)
[2019-10-05 06:36] LABS: BUN Creatinine Ratio 17.5 (10-20); Calcium 8.1 mg/dl (8.5-10.1); Creatinine Clr Calc Pharmacy 47.4 ml/min; Est GFR (Non-African American) 56.1; Potassium 3.6 mmol/L (3.5-5.1)
[2019-10-05] MEDS ORDERED: PRASugrel TAB 10 MG TAB PO SCH (09:00)
[2019-10-05] MEDS: ASPIRIN 81 MG ECTAB PO SCH (09:33)
[2019-10-05] MEDS: METOPROLOL SUCC 25MG EXT REL TAB PO SCH (09:33)
[2019-10-05] MEDS: ATORVASTATIN 40 MG TAB PO SCH (09:33)
[2019-10-05] MEDS: INSULIN ASPART 100 UNITS/ML 3 ML PEN SC SCH ×4 (09:40→21:17)
--- NOTE | 2019-10-05 11:49 | Hospitalist Progress Note ---
Date of Service October 05, 2019 Assessment & Plan (1) Fever: (2) Generalized weakness: Pt is 78 y/o M with PMH CAD s/p WALKER to RCA in 03/2018, AAA s/p repair, HTN, dyslipidemia, DM II presented with c/o generalized weakness, myalgias, CHAN x 3 days. C/O fever 101F -102F. No cough, SOB, N/V/D. Denies known tick bites or ill contacts, recent travel, rashes. Was out hunting with friends 1 week ago. Was started on doxycycline by PCP on Thursday for possible lyme disease. Outpatient with normal CK. In ER afebrile, P: 83, R: 20, BP: 123/69, 97% on RA. WBC: 5, H/H: 13.5/39.5, Plt: 88, Na: 132, BUN: 21, Cr: 1.16, GFR: 60.8, POC Lactic acid: 0.91, Negative flu swab, UA not consistent with UTI CT Head: no acute changes CXR: no infiltrate -Had negative Lyme titer at clinic on Thursday -Peripheral smear not c/w anaplasmosis -Anaplasmosis PCR - pending -Blood cultures- pending -Urine culture- pending -Zosyn for now -CBC, BMP in am -Weakness much improved today, patient is already able to get up from bed or chair and able to walk in the hallway which is big improvement from previous. However he continues to have headaches. Headache -At this point not well controlled with Tylenol, added tramadol 25 mg as needed, which seems to be working well -Several neuro checks performed, normal -Given Tylenol in ER with resolution of CHAN and improvement of myalgias and reported decreased weakness Thrombocytopenia Platelet count 86K, patient is also on dual antiplatelet therapy due to cardiac stent placed last year We will consider to decrease from dual antiplatelet therapy to only aspirin if platelet count does not improve Likely secondary due to underlying etiology, will continue to closely monitor (3) Coronary artery disease: CAD s/p WALKER to RCA in 03/2018 No CP, SOB -Continue ASA, metoprolol, atorvastatin, Effient -However may continue only with aspirin instead of dual antiplatelet therapy given his low platelet count (4) Diabetes mellitus, type II: A1c: 6.1 on08/15/19 -Hold metformin -Novolog sliding scale per protocol (5) HTN (hypertension): Stable -Continue metoprolol DVT Prophylaxis -SCDs for now with low Plt Full Code as per discussion with pt Follows with Dr Dillon for routine care Subjective Patient is sitting in the chair, family also present. Patient is already getting better, his strength is improved, able to walk in the hallway. Per Patient's who is present at the bedside, patient was unable to get up from bed previously due to weakness. However about a week ago he was out hunting with his friends and did not have any weakness or any other symptoms. Continues to complain about bilateral temporal headache. At first Tylenol worked for headache, now tried tramadol 25 mg instead. Several neuro exams performed, NEUROLOGICAL: Alert, oriented, and cooperative. Cranial nerves, sensation and strength grossly intact. Pupils round, equal, and react to light, EOMs are full. Review of Systems Review of Systems: All systems reviewed & are unremarkable except as noted in HPI & below Constitutional: + weakness; no fever and no chills Respiratory: no cough and no dyspnea Cardiovascular: no chest pain and no palpitations Gastrointestinal: no abdominal pain, no nausea and no vomiting Physical Exam Physical Exam: General: Elderly male in no acute distress, WD/WN Head: normocephalic, atraumatic Eyes: PERRL, EOM's intact, conjunctiva non-injected, anicteric sclerae ENT: normal inspection external ears, nose, mucous membranes moist Neck: supple, trachea midline, non-tender Lungs: clear, no respiratory distress, no wheezing/rhonchi/rales CV: RRR, no murmur, no pretibial edema Abd: normal BS, soft, non-tender Ext: no cyanosis, no calf tenderness; strength 5/5 throughout, moves all 4 extremities spontaneously and without difficulty Neuro: A&O x 3, no focal deficits noted, normal affect Skin: warm, dry Results & Data Vital Signs (Past 12 Hours) Vital Signs Temp Pulse Pulse Resp BP Pulse Ox 10/05/19 11:12 36.3 C L 74 20 93/53 L 98 10/05/19 07:44 64 10/05/19 07:35 36.4 C L 70 18 96/57 L 96 10/05/19 03:31 36.8 C 87 19 110/66 94 10/05/19 02:01 70 Laboratory Results 10/05/19 10/05/19 10/05/19 Range/Units 11:39 07:30 05:45 WBC RBC Hgb Hct MCV MCH MCHC RDW Std Deviation RDW Coeff of Edilberto Plt Count MPV Immature Gran % (Auto) Neut % (Auto) Lymph % (Auto) [place] % (Auto) Eos % (Auto) Baso % (Auto) Immature Gran # (Auto) Neut # (Auto) Lymph # (Auto) [place] # (Auto) Eos # (Auto) Baso # (Auto) Absolute Nucleated RBC Nucleated RBC % (auto) Neutrophils % (Manual) Band Neutrophils % Lymphocytes % (Manual) Prolymphocyte % Reactive Lymphs % (Man) Monocytes % (Manual) Eosinophils % (Manual) Basophils % (Manual) Metamyelocytes % (Man) Myelocytes % (Man) Promyelocytes % (Man) Blast Cells % (Manual) Plasma Cell % (Manual) Other Cells % Nucleated RBC % Neutrophils # (Manual) Band Neutrophils # Total Absolute Neuts Lymphocytes # (Manual) Prolymphocyte # Reactive Lymphs # Total Abs Lymphocytes Monocytes # (Manual) Eosinophils # (Manual) Basophils # (Manual) Metamyelocytes # (Man) Myelocytes # (Manual) Promyelocytes # (Man) Blast Cells # (Man) Plasma Cell # (Manual) Other Cells # Nucleated RBCs # (Man) Hypersegmented Neuts Hyposegmented Neuts Hypogranular Neuts Large Granular Lymphs # Lrg Granular Lymphs Hairy Cells Smudge Cells Toxic Granulation Toxic Vacuolation Dohle Bodies Lisa Rods Platelet Estimate Hypogranular Platelets Clumped Platelets Giant Platelets Platelet Satelliting RBC Morphology Polychromasia Hypochromasia Poikilocytosis Basophilic Stippling Anisocytosis Microcytosis Macrocytosis Spherocytes Pappenheimer Bodies Sickle Cells Target Cells Tear Drop Cells Ovalocytes Stomatocytes Luevano-Damascus Bodies Echinocytes Acanthocytes (Spur) Rouleaux RBC Agglutinates Schistocytes RBC Morph Comment Peripher Smr Path Cons Sezary Cell Sodium 135 L (136-145) mmol/L Potassium 3.6 (3.5-5.1) mmol/L Chloride 102 (98-107) mmol/L Carbon Dioxide 26 (21-32) mmol/L Anion Gap 7.0 (3-11) BUN 22 H (7-18) mg/dl Creatinine 1.24 (0.6-1.4) mg/dl Est Cr Clr Drug Dosing 47.4 Est GFR ( Amer) 65.0 Est GFR (Non-Af Amer) 56.1 BUN/Creatinine Ratio 17.5 (10-20) Glucose 120 H (70-99) mg/dl POC Glucose 121 H 119 H (70-99) POC Lactic Acid Barber (0.90-1.70) mmol/L Calcium 8.1 L (8.5-10.1) mg/dl Total Bilirubin (0.2-1) mg/dl AST (15-37) U/L ALT (12-78) U/L Alkaline Phosphatase (45-117) U/L Troponin I (0-0.045) ng/ml Total Protein (6.4-8.2) gm/dl Albumin (3.4-5.0) gm/dl Globulin (2.5-4.0) gm/dl Albumin/Globulin Ratio (0.9-2) Urine Color Urine Appearance (Clear) Urine pH (4.5-7.5) Ur Specific [place] (1.000-1.030) Urine Protein (Negative) Urine Glucose (UA) (Negative) Urine Ketones (Negative) Urine Blood (Negative) Urine Nitrite (Negative) Urine Bilirubin (Negative) Urine Urobilinogen (Negative) Ur Leukocyte Esterase (Negative) Urine WBC (Auto) (0-5) /hpf Urine RBC (Auto) (0-4) /hpf U Hyaline Cast (Auto) (0-5) /lpf U Epithel Cells (Auto) (0-5) /lpf Urine Bacteria (Auto) (Negative) Nasal Screen MRSA (PCR) (Negative) Anaplasma Smear Influenza Type A Ag (Neg) Influenza Type B Ag (Neg) 10/05/19 10/04/19 10/04/19 Range/Units 05:45 21:34 21:25 WBC 5.08 RBC 3.94 L Hgb 12.7 L Hct 36.9 L MCV 93.7 MCH 32.2 MCHC 34.4 RDW Std Deviation 46.7 H RDW Coeff of Edilberto 13.5 Plt Count 86 L MPV 9.8 Immature Gran % (Auto) Neut % (Auto) Lymph % (Auto) [place] % (Auto) Eos % (Auto) Baso % (Auto) Immature Gran # (Auto) Neut # (Auto) Lymph # (Auto) [place] # (Auto) Eos # (Auto) Baso # (Auto) Absolute Nucleated RBC Nucleated RBC % (auto) Neutrophils % (Manual) Band Neutrophils % Lymphocytes % (Manual) Prolymphocyte % Reactive Lymphs % (Man) Monocytes % (Manual) Eosinophils % (Manual) Basophils % (Manual) Metamyelocytes % (Man) Myelocytes % (Man) Promyelocytes % (Man) Blast Cells % (Manual) Plasma Cell % (Manual) Other Cells % Nucleated RBC % Neutrophils # (Manual) Band Neutrophils # Total Absolute Neuts Lymphocytes # (Manual) Prolymphocyte # Reactive Lymphs # Total Abs Lymphocytes Monocytes # (Manual) Eosinophils # (Manual) Basophils # (Manual) Metamyelocytes # (Man) Myelocytes # (Manual) Promyelocytes # (Man) Blast Cells # (Man) Plasma Cell # (Manual) Other Cells # Nucleated RBCs # (Man) Hypersegmented Neuts Hyposegmented Neuts Hypogranular Neuts Large Granular Lymphs # Lrg Granular Lymphs Hairy Cells Smudge Cells Toxic Granulation Toxic Vacuolation Dohle Bodies Lisa Rods Platelet Estimate Hypogranular Platelets Clumped Platelets Giant Platelets Platelet Satelliting RBC Morphology Polychromasia Hypochromasia Poikilocytosis Basophilic Stippling Anisocytosis Microcytosis Macrocytosis Spherocytes Pappenheimer Bodies Sickle Cells Target Cells Tear Drop Cells Ovalocytes Stomatocytes Luevano-Damascus Bodies Echinocytes Acanthocytes (Spur) Rouleaux RBC Agglutinates Schistocytes RBC Morph Comment Peripher Smr Path Cons Sezary Cell Sodium (136-145) mmol/L Potassium (3.5-5.1) mmol/L Chloride (98-107) mmol/L Carbon Dioxide (21-32) mmol/L Anion Gap (3-11) BUN (7-18) mg/dl Creatinine (0.6-1.4) mg/dl Est Cr Clr Drug Dosing Est GFR ( Amer) Est GFR (Non-Af Amer) BUN/Creatinine Ratio (10-20) Glucose (70-99) mg/dl POC Glucose 125 H (70-99) POC Lactic Acid Barber (0.90-1.70) mmol/L Calcium (8.5-10.1) mg/dl Total Bilirubin (0.2-1) mg/dl AST (15-37) U/L ALT (12-78) U/L Alkaline Phosphatase (45-117) U/L Troponin I (0-0.045) ng/ml Total Protein (6.4-8.2) gm/dl Albumin (3.4-5.0) gm/dl Globulin (2.5-4.0) gm/dl Albumin/Globulin Ratio (0.9-2) Urine Color Urine Appearance (Clear) Urine pH (4.5-7.5) Ur Specific [place] (1.000-1.030) Urine Protein (Negative) Urine Glucose (UA) (Negative) Urine Ketones (Negative) Urine Blood (Negative) Urine Nitrite (Negative) Urine Bilirubin (Negative) Urine Urobilinogen (Negative) Ur Leukocyte Esterase (Negative) Urine WBC (Auto) (0-5) /hpf Urine RBC (Auto) (0-4) /hpf U Hyaline Cast (Auto) (0-5) /lpf U Epithel Cells (Auto) (0-5) /lpf Urine Bacteria (Auto) (Negative) Nasal Screen MRSA (PCR) Negative (Negative) Anaplasma Smear Influenza Type A Ag (Neg) Influenza Type B Ag (Neg) 10/04/19 10/04/19 10/04/19 Range/Units 17:47 17:47 16:41 WBC 5.28 RBC 4.20 L Hgb 13.5 L Hct 39.5 L MCV 94.0 MCH 32.1 MCHC 34.2 RDW Std Deviation 47.3 H RDW Coeff of Edilberto 13.6 Plt Count 88 L MPV 10.1 Immature Gran % (Auto) 0.2 Neut % (Auto) 79.7 Lymph % (Auto) 14.2 [place] % (Auto) 5.7 Eos % (Auto) 0.0 Baso % (Auto) 0.2 Immature Gran # (Auto) 0.01 Neut # (Auto) 4.21 Lymph # (Auto) 0.75 L [place] # (Auto) 0.30 Eos # (Auto) 0.00 Baso # (Auto) 0.01 Absolute Nucleated RBC 0.00 Nucleated RBC % (auto) 0.0 Neutrophils % (Manual) Band Neutrophils % Lymphocytes % (Manual) Prolymphocyte % Reactive Lymphs % (Man) Monocytes % (Manual) Eosinophils % (Manual) Basophils % (Manual) Metamyelocytes % (Man) Myelocytes % (Man) Promyelocytes % (Man) Blast Cells % (Manual) Plasma Cell % (Manual) Other Cells % Nucleated RBC % Neutrophils # (Manual) Band Neutrophils # Total Absolute Neuts Lymphocytes # (Manual) Prolymphocyte # Reactive Lymphs # Total Abs Lymphocytes Monocytes # (Manual) Eosinophils # (Manual) Basophils # (Manual) Metamyelocytes # (Man) Myelocytes # (Manual) Promyelocytes # (Man) Blast Cells # (Man) Plasma Cell # (Manual) Other Cells # Nucleated RBCs # (Man) Hypersegmented Neuts Hyposegmented Neuts Hypogranular Neuts Large Granular Lymphs # Lrg Granular Lymphs Hairy Cells Smudge Cells Toxic Granulation Toxic Vacuolation Dohle Bodies Lisa Rods Platelet Estimate Decreased L Hypogranular Platelets Clumped Platelets Giant Platelets Platelet Satelliting RBC Morphology Polychromasia Hypochromasia Poikilocytosis Basophilic Stippling Anisocytosis Microcytosis Macrocytosis Spherocytes Pappenheimer Bodies Sickle Cells Target Cells Tear Drop Cells Ovalocytes Stomatocytes Luevano-Damascus Bodies Echinocytes Acanthocytes (Spur) Rouleaux RBC Agglutinates Schistocytes RBC Morph Comment Peripher Smr Path Cons Cancelled Sezary Cell Sodium (136-145) mmol/L Potassium (3.5-5.1) mmol/L Chloride (98-107) mmol/L Carbon Dioxide (21-32) mmol/L Anion Gap (3-11) BUN (7-18) mg/dl Creatinine (0.6-1.4) mg/dl Est Cr Clr Drug Dosing Est GFR ( Amer) Est GFR (Non-Af Amer) BUN/Creatinine Ratio (10-20) Glucose (70-99) mg/dl POC Glucose (70-99) POC Lactic Acid Barber 0.91 (0.90-1.70) mmol/L Calcium (8.5-10.1) mg/dl Total Bilirubin (0.2-1) mg/dl AST (15-37) U/L ALT (12-78) U/L Alkaline Phosphatase (45-117) U/L Troponin I (0-0.045) ng/ml Total Protein (6.4-8.2) gm/dl Albumin (3.4-5.0) gm/dl Globulin (2.5-4.0) gm/dl Albumin/Globulin Ratio (0.9-2) Urine Color Urine Appearance (Clear) Urine pH (4.5-7.5) Ur Specific [place] (1.000-1.030) Urine Protein (Negative) Urine Glucose (UA) (Negative) Urine Ketones (Negative) Urine Blood (Negative) Urine Nitrite (Negative) Urine Bilirubin (Negative) Urine Urobilinogen (Negative) Ur Leukocyte Esterase (Negative) Urine WBC (Auto) (0-5) /hpf Urine RBC (Auto) (0-4) /hpf U Hyaline Cast (Auto) (0-5) /lpf U Epithel Cells (Auto) (0-5) /lpf Urine Bacteria (Auto) (Negative) Nasal Screen MRSA (PCR) (Negative) Anaplasma Smear Cancelled See Comment Influenza Type A Ag (Neg) Influenza Type B Ag (Neg) 10/04/19 10/04/19 10/04/19 Range/Units 16:28 16:25 16:25 WBC Cancelled RBC Cancelled Hgb Cancelled Hct Cancelled MCV Cancelled MCH Cancelled MCHC Cancelled RDW Std Deviation Cancelled RDW Coeff of Edilberto Cancelled Plt Count Cancelled MPV Cancelled Immature Gran % (Auto) Cancelled Neut % (Auto) Cancelled Lymph % (Auto) Cancelled [place] % (Auto) Cancelled Eos % (Auto) Cancelled Baso % (Auto) Cancelled Immature Gran # (Auto) Cancelled Neut # (Auto) Cancelled Lymph # (Auto) Cancelled [place] # (Auto) Cancelled Eos # (Auto) Cancelled Baso # (Auto) Cancelled Absolute Nucleated RBC Cancelled Nucleated RBC % (auto) Cancelled Neutrophils % (Manual) Cancelled Band Neutrophils % Cancelled Lymphocytes % (Manual) Cancelled Prolymphocyte % Cancelled Reactive Lymphs % (Man) Cancelled Monocytes % (Manual) Cancelled Eosinophils % (Manual) Cancelled Basophils % (Manual) Cancelled Metamyelocytes % (Man) Cancelled Myelocytes % (Man) Cancelled Promyelocytes % (Man) Cancelled Blast Cells % (Manual) Cancelled Plasma Cell % (Manual) Cancelled Other Cells % Cancelled Nucleated RBC % Cancelled Neutrophils # (Manual) Cancelled Band Neutrophils # Cancelled Total Absolute Neuts Cancelled Lymphocytes # (Manual) Cancelled Prolymphocyte # Cancelled Reactive Lymphs # Cancelled Total Abs Lymphocytes Cancelled Monocytes # (Manual) Cancelled Eosinophils # (Manual) Cancelled Basophils # (Manual) Cancelled Metamyelocytes # (Man) Cancelled Myelocytes # (Manual) Cancelled Promyelocytes # (Man) Cancelled Blast Cells # (Man) Cancelled Plasma Cell # (Manual) Cancelled Other Cells # Cancelled Nucleated RBCs # (Man) Cancelled Hypersegmented Neuts Cancelled Hyposegmented Neuts Cancelled Hypogranular Neuts Cancelled Large Granular Lymphs Cancelled # Lrg Granular Lymphs Cancelled Hairy Cells Cancelled Smudge Cells Cancelled Toxic Granulation Cancelled Toxic Vacuolation Cancelled Dohle Bodies Cancelled Lisa Rods Cancelled Platelet Estimate Cancelled Hypogranular Platelets Cancelled Clumped Platelets Cancelled Giant Platelets Cancelled Platelet Satelliting Cancelled RBC Morphology Cancelled Polychromasia Cancelled Hypochromasia Cancelled Poikilocytosis Cancelled Basophilic Stippling Cancelled Anisocytosis Cancelled Microcytosis Cancelled Macrocytosis Cancelled Spherocytes Cancelled Pappenheimer Bodies Cancelled Sickle Cells Cancelled Target Cells Cancelled Tear Drop Cells Cancelled Ovalocytes Cancelled Stomatocytes Cancelled Luevano-Damascus Bodies Cancelled Echinocytes Cancelled Acanthocytes (Spur) Cancelled Rouleaux Cancelled RBC Agglutinates Cancelled Schistocytes Cancelled RBC Morph Comment Cancelled Peripher Smr Path Cons Sezary Cell Cancelled Sodium 132 L (136-145) mmol/L Potassium 4.1 (3.5-5.1) mmol/L Chloride 100 (98-107) mmol/L Carbon Dioxide 25 (21-32) mmol/L Anion Gap 7.0 (3-11) BUN 21 H (7-18) mg/dl Creatinine 1.16 (0.6-1.4) mg/dl Est Cr Clr Drug Dosing Not Reportable Est GFR ( Amer) 70.5 Est GFR (Non-Af Amer) 60.8 BUN/Creatinine Ratio 17.7 (10-20) Glucose 117 H (70-99) mg/dl POC Glucose (70-99) POC Lactic Acid Barber (0.90-1.70) mmol/L Calcium 8.8 (8.5-10.1) mg/dl Total Bilirubin 1.0 (0.2-1) mg/dl AST 56 H (15-37) U/L ALT 57 (12-78) U/L Alkaline Phosphatase 61 (45-117) U/L Troponin I < 0.015 (0-0.045) ng/ml Total Protein 6.6 (6.4-8.2) gm/dl Albumin 3.3 L (3.4-5.0) gm/dl Globulin 3.3 (2.5-4.0) gm/dl Albumin/Globulin Ratio 1.0 (0.9-2) Urine Color Dark Yellow Urine Appearance Clear (Clear) Urine pH 6.0 (4.5-7.5) Ur Specific [place] 1.020 (1.000-1.030) Urine Protein 2+ H (Negative) Urine Glucose (UA) Negative (Negative) Urine Ketones Negative (Negative) Urine Blood 2+ H (Negative) Urine Nitrite Negative (Negative) Urine Bilirubin Negative (Negative) Urine Urobilinogen Negative (Negative) Ur Leukocyte Esterase Negative (Negative) Urine WBC (Auto) 1-5 (0-5) /hpf Urine RBC (Auto) >30 H (0-4) /hpf U Hyaline Cast (Auto) 1-5 (0-5) /lpf U Epithel Cells (Auto) 20-30 H (0-5) /lpf Urine Bacteria (Auto) Negative (Negative) Nasal Screen MRSA (PCR) (Negative) Anaplasma Smear Influenza Type A Ag (Neg) Influenza Type B Ag (Neg) 10/04/19 Range/Units 16:23 WBC RBC Hgb Hct MCV MCH MCHC RDW Std Deviation RDW Coeff of Edilberto Plt Count MPV Immature Gran % (Auto) Neut % (Auto) Lymph % (Auto) [place] % (Auto) Eos % (Auto) Baso % (Auto) Immature Gran # (Auto) Neut # (Auto) Lymph # (Auto) [place] # (Auto) Eos # (Auto) Baso # (Auto) Absolute Nucleated RBC Nucleated RBC % (auto) Neutrophils % (Manual) Band Neutrophils % Lymphocytes % (Manual) Prolymphocyte % Reactive Lymphs % (Man) Monocytes % (Manual) Eosinophils % (Manual) Basophils % (Manual) Metamyelocytes % (Man) Myelocytes % (Man) Promyelocytes % (Man) Blast Cells % (Manual) Plasma Cell % (Manual) Other Cells % Nucleated RBC % Neutrophils # (Manual) Band Neutrophils # Total Absolute Neuts Lymphocytes # (Manual) Prolymphocyte # Reactive Lymphs # Total Abs Lymphocytes Monocytes # (Manual) Eosinophils # (Manual) Basophils # (Manual) Metamyelocytes # (Man) Myelocytes # (Manual) Promyelocytes # (Man) Blast Cells # (Man) Plasma Cell # (Manual) Other Cells # Nucleated RBCs # (Man) Hypersegmented Neuts Hyposegmented Neuts Hypogranular Neuts Large Granular Lymphs # Lrg Granular Lymphs Hairy Cells Smudge Cells Toxic Granulation Toxic Vacuolation Dohle Bodies Lisa Rods Platelet Estimate Hypogranular Platelets Clumped Platelets Giant Platelets Platelet Satelliting RBC Morphology Polychromasia Hypochromasia Poikilocytosis Basophilic Stippling Anisocytosis Microcytosis Macrocytosis Spherocytes Pappenheimer Bodies Sickle Cells Target Cells Tear Drop Cells Ovalocytes Stomatocytes Luevano-Damascus Bodies Echinocytes Acanthocytes (Spur) Rouleaux RBC Agglutinates Schistocytes RBC Morph Comment Peripher Smr Path Cons Sezary Cell Sodium (136-145) mmol/L Potassium (3.5-5.1) mmol/L Chloride (98-107) mmol/L Carbon Dioxide (21-32) mmol/L Anion Gap (3-11) BUN (7-18) mg/dl Creatinine (0.6-1.4) mg/dl Est Cr Clr Drug Dosing Est GFR ( Amer) Est GFR (Non-Af Amer) BUN/Creatinine Ratio (10-20) Glucose (70-99) mg/dl POC Glucose (70-99) POC Lactic Acid Barber (0.90-1.70) mmol/L Calcium (8.5-10.1) mg/dl Total Bilirubin (0.2-1) mg/dl AST (15-37) U/L ALT (12-78) U/L Alkaline Phosphatase (45-117) U/L Troponin I (0-0.045) ng/ml Total Protein (6.4-8.2) gm/dl Albumin (3.4-5.0) gm/dl Globulin (2.5-4.0) gm/dl Albumin/Globulin Ratio (0.9-2) Urine Color Urine Appearance (Clear) Urine pH (4.5-7.5) Ur Specific [place] (1.000-1.030) Urine Protein (Negative) Urine Glucose (UA) (Negative) Urine Ketones (Negative) Urine Blood (Negative) Urine Nitrite (Negative) Urine Bilirubin (Negative) Urine Urobilinogen (Negative) Ur Leukocyte Esterase (Negative) Urine WBC (Auto) (0-5) /hpf Urine RBC (Auto) (0-4) /hpf U Hyaline Cast (Auto) (0-5) /lpf U Epithel Cells (Auto) (0-5) /lpf Urine Bacteria (Auto) (Negative) Nasal Screen MRSA (PCR) (Negative) Anaplasma Smear Influenza Type A Ag Neg for Influ A (Neg) Influenza Type B Ag Neg for Influ B (Neg) Medications Administered Current Inpatient Medications Acetaminophen (Tylenol) 650 mg PO Q4H PRN PRN Reason: Pain or Fever Stop: 11/03/19 21:06 Last Admin: 10/05/19 09:44 Dose: 650 mg Documented by: Aspirin (Ecotrin Ectab) 81 mg PO DAILY [facility] Stop: 11/04/19 08:59 Last Admin: 10/05/19 09:33 Dose: 81 mg Documented by: Atorvastatin Calcium (Lipitor) 40 mg PO [facility] Stop: 11/04/19 08:59 Last Admin: 10/05/19 09:33 Dose: 40 mg Documented by: Dextrose (Dextrose 50%) 25 - 50 ml IV UD PRN; Protocol PRN Reason: Hypoglycemia Protocol Stop: 11/03/19 21:06 Glucagon (Glucagen) 1 mg SQ UD PRN; Protocol PRN Reason: Hypoglycemia Protocol Stop: 11/03/19 21:06 Glucose (Glucose 40%) 15 - 30 gm PO UD PRN; Protocol PRN Reason: Hypoglycemia Protocol Stop: 11/03/19 21:06 Glucose (Dex4 Glucose) 4 - 8 tabs PO UD PRN; Protocol PRN Reason: Hypoglycemia Protocol Stop: 11/03/19 21:06 Piperacillin Sod/Tazobactam (Sod 3.375 gm/ Dextrose) 115 mls @ 28.75 mls/hr IV Q8H [facility]; Protocol Stop: 10/06/19 00:00 Last Admin: 10/05/19 09:33 Dose: 28.8 mls/hr Documented by: Insulin Aspart (Novolog Flexpen) 0 units SC ACHS [facility] Stop: 11/03/19 21:06 Last Admin: 10/05/19 09:40 Dose: Not Given Documented by: Metoprolol Succinate (Toprol Xl) 25 mg PO [facility] Stop: 11/04/19 08:59 Last Admin: 10/05/19 09:33 Dose: Not Given Documented by: Miscellaneous (Carbohydrates For Hypoglycemia) 15 - 30 gm PO UD PRN PRN Reason: Hypoglycemia Protocol Stop: 11/03/19 21:06 Miscellaneous Information (Consult) 1 ea N/A UD PRN PRN Reason: Consult Stop: 11/03/19 21:29 Nitroglycerin (Nitrostat) 0.4 mg SL UD PRN PRN Reason: Chest Pain Stop: 11/03/19 21:06 [facility] [place]: 11/04/19 08:59 Last Admin: 10/05/19 09:33 Dose: 10 mg Documented by: (1) Fever Fever type: unspecified Qualified Code(s): R50.9 - Fever, unspecified
[2019-10-05] MEDS ORDERED: TRAMADOL HCL 50 MG TABLET PO ONE (14:40)
[2019-10-05] MEDS: TRAMADOL HCL 50 MG TABLET PO PRN (17:45)
[2019-10-05 23:44] LABS: Hematocrit (blood only) 36.2 % (42-52); Hemoglobin 12.4 g/dL (14.0-18.0); Mean Corpuscular Hemoglobin 31.9 pg (25-34); Mean Corpuscular Hgb Conc 34.3 g/dL (32-36); Mean Corpuscular Volume 93.1 fL (80-100); RDW Coefficient of Variation 13.6 % (11.5-14.5); RDW Standard Deviation 46.6 fL (36.4-46.3); Red Blood Count 3.89 M/uL (4.7-6.1); White Blood Count 2.66 K/uL (4.8-10.8)
[2019-10-05 23:51] LABS: Mean Platelet Volume 9.8 fL (7.4-10.4); Platelet Count 82 K/uL (130-400)
[2019-10-06] MEDS: PIPERACILLIN/TAZOBACTAM 3.375 GM in DEXTROSE 5% 100 ML IV SCH ×3 (00:13→17:06)
[2019-10-06 06:49] LABS: Hematocrit (blood only) 42.4 % (42-52); Hemoglobin 14.4 g/dL (14.0-18.0); Mean Corpuscular Hemoglobin 32.1 pg (25-34); Mean Corpuscular Volume 94.4 fL (80-100); RDW Coefficient of Variation 13.7 % (11.5-14.5); RDW Standard Deviation 47.4 fL (36.4-46.3); Red Blood Count 4.49 M/uL (4.7-6.1); White Blood Count 3.26 K/uL (4.8-10.8)
[2019-10-06 07:12] LABS: Mean Platelet Volume 10.1 fL (7.4-10.4); Platelet Count 95 K/uL (130-400)
[2019-10-06 07:13] LABS: Basophils # (auto) 0.01 K/uL (0-0.2); Basophils % (auto) 0.3 %; Eosinophils # (auto) 0.02 K/uL (0-0.5); Eosinophils % (auto) 0.6 %; Immature Granulocytes # (auto) 0.01 K/uL (0.00-0.02); Immature Granulocytes % (auto) 0.3 %; Lymphocytes % (auto) 21.5 %; Monocytes # (auto) 0.23 K/uL (0.11-0.59); Monocytes % (auto) 7.1 %; Neutrophils # (auto) 2.29 K/uL (1.4-6.5); Neutrophils % (auto) 70.2 %
[2019-10-06 07:20] LABS: BUN Creatinine Ratio 16.9 (10-20); Calcium 8.9 mg/dl (8.5-10.1); Est GFR (African American) 64.4; Est GFR (Non-African American) 55.6; Phosphorus 2.7 mg/dl (2.5-4.9); Potassium 3.6 mmol/L (3.5-5.1)
[2019-10-06] MEDS: METOPROLOL SUCC 25MG EXT REL TAB PO SCH (08:05)
[2019-10-06] MEDS: ATORVASTATIN 40 MG TAB PO SCH (08:05)
[2019-10-06] MEDS: ASPIRIN 81 MG ECTAB PO SCH (08:05)
[2019-10-06] MEDS: INSULIN ASPART 100 UNITS/ML 3 ML PEN SC SCH ×4 (08:23→21:20)
[2019-10-06] MEDS: TRAMADOL HCL 50 MG TABLET PO PRN ×3 (09:14→18:01)
--- NOTE | 2019-10-06 09:18 | Hospitalist Progress Note ---
Date of Service October 06, 2019 Assessment & Plan (1) Fever: Etiology unclear T-max 37.7 Celsius on admission, and since then afebrile work up (below) (2) Generalized weakness: Pt is 78 y/o M with PMH CAD s/p WALKER to RCA in 03/2018, AAA s/p repair, HTN, dyslipidemia, DM II presented with c/o generalized weakness, myalgias, CHAN x 3 days. C/O fever 101F -102F. No cough, SOB, N/V/D. Denies known tick bites or ill contacts, recent travel, rashes. Was out hunting with friends 1 week ago. Was started on doxycycline by PCP on Thursday for possible lyme disease. Outpatient with normal CK. In ER afebrile, P: 83, R: 20, BP: 123/69, 97% on RA. WBC: 5, H/H: 13.5/39.5, Plt: 88, Na: 132, BUN: 21, Cr: 1.16, GFR: 60.8, POC Lactic acid: 0.91, Negative flu swab, UA not consistent with UTI CT Head: no acute changes CXR: no infiltrate -Negative Lyme titer at clinic on Thursday -Peripheral smear not c/w anaplasmosis -Anaplasmosis PCR - pending -Ehrlichiosis PCR -Blood cultures- negative -Urine culture- pending -Zosyn for now -CBC, BMP in am -Weakness much improved, patient is already able to get up from bed or chair and able to walk in the hallway which is big improvement from previous. However he continues to have headaches. Headache CT head in the ED negative for any acute process -At this point not well controlled with Tylenol, added tramadol 25 mg as needed, which seems to be working well -Several neuro checks performed, normal -Given Tylenol in ER with resolution of CHAN and improvement of myalgias and reported decreased weakness Given temporal location of patient's headache, obtained ESR (8), not elevated Will consider to consult neurology given persistent new onset of headache difficult to control with meds Thrombocytopenia Platelet count 86K, patient is also on dual antiplatelet therapy due to cardiac stent placed last year (more than a year ago) Mildly increased to 95K today Instead of dual antiplatelet therapy , will cont. only aspirin for now Likely secondary due to underlying etiology, will continue to closely monitor (3) Coronary artery disease: CAD s/p WALKER to RCA in 03/2018 No CP, SOB -Continue ASA, metoprolol, atorvastatin, Effient -will continue only with aspirin for now instead of dual antiplatelet therapy given his low platelet count (4) Diabetes mellitus, type II: A1c: 6.1 on 08/15/19 -Hold metformin -Novolog sliding scale per protocol (5) HTN (hypertension): Stable -Continue metoprolol DVT Prophylaxis -SCDs for now with low Plt Full Code as per discussion with pt Follows with Dr Dillon for routine care Subjective 10/05/2019 Pt is already getting better, his strength is improved, able to walk in the hallway He was unable to get up from bed previously due to weakness. However about a week ago he was out hunting with his friends and did not have any weakness or any other symptoms. Continues to complain about bilateral temporal headache. At first Tylenol worked for headache, now tried tramadol 25 mg instead. Several neuro exams performed, NEUROLOGICAL: Alert, oriented, and cooperative. Cranial nerves, sensation and strength grossly intact. Pupils round, equal, and react to light, EOMs are full. 10/06/2019 Patient is lying in bed, alert and oriented, strength much improved. However continues to complain about headache, currently his CHAN is unilateral temporal headache. Neurochecks normal. ESR 8 No fevers, chills, nausea, vomiting, chest pain, palpitations, abdominal pain. Review of Systems Review of Systems: All systems reviewed & are unremarkable except as noted in HPI & below Constitutional: no fever and no chills Respiratory: no cough and no dyspnea Cardiovascular: no chest pain, no palpitations and no edema Gastrointestinal: no abdominal pain, no nausea and no vomiting Physical Exam Physical Exam: General: Elderly male in no acute distress, WD/WN Head: normocephalic, atraumatic Eyes: PERRL, EOM's intact, conjunctiva non-injected, anicteric sclerae ENT: normal inspection external ears, nose, mucous membranes moist Neck: supple, trachea midline, non-tender Lungs: clear, no respiratory distress, no wheezing/rhonchi/rales CV: RRR, no murmur, no pretibial edema Abd: normal BS, soft, non-tender Ext: no cyanosis, no calf tenderness; strength 5/5 throughout, moves all 4 extremities spontaneously and without difficulty Neuro: A&O x 3, no focal deficits noted, normal affect Skin: warm, dry Results & Data Vital Signs (Past 12 Hours) Vital Signs Temp Pulse Pulse Resp BP Pulse Ox 10/06/19 07:31 73 10/06/19 06:51 37.1 C 79 16 111/65 93 10/06/19 04:29 36.8 C 65 18 121/68 95 10/06/19 01:25 70 10/06/19 01:01 36.9 C 67 18 117/57 L 95 Laboratory Results 10/06/19 10/06/19 10/06/19 Range/Units 07:27 06:08 06:08 WBC 3.26 L (4.8-10.8) K/uL RBC 4.49 L (4.7-6.1) M/uL Hgb 14.4 (14.0-18.0) g/dL Hct 42.4 (42-52) % MCV 94.4 (80-100) fL MCH 32.1 (25-34) pg MCHC 34.0 (32-36) g/dL RDW Std Deviation 47.4 H (36.4-46.3) fL RDW Coeff of Edilberto 13.7 (11.5-14.5) % Plt Count 95 L (130-400) K/uL MPV 10.1 (7.4-10.4) fL Immature Gran % (Auto) 0.3 % Neut % (Auto) 70.2 % Lymph % (Auto) 21.5 % Rogers % (Auto) 7.1 % Eos % (Auto) 0.6 % Baso % (Auto) 0.3 % Immature Gran # (Auto) 0.01 (0.00-0.02) K/uL Neut # (Auto) 2.29 (1.4-6.5) K/uL Lymph # (Auto) 0.70 L (1.2-3.4) K/uL Rogers # (Auto) 0.23 (0.11-0.59) K/uL Eos # (Auto) 0.02 (0-0.5) K/uL Baso # (Auto) 0.01 (0-0.2) K/uL Sodium 137 (136-145) mmol/L Potassium 3.6 (3.5-5.1) mmol/L Chloride 104 (98-107) mmol/L Carbon Dioxide 27 (21-32) mmol/L Anion Gap 6.0 (3-11) BUN 21 H (7-18) mg/dl Creatinine 1.25 (0.6-1.4) mg/dl Est Cr Clr Drug Dosing 47.0 ml/min Est GFR ( Amer) 64.4 Est GFR (Non-Af Amer) 55.6 BUN/Creatinine Ratio 16.9 (10-20) Glucose 100 H (70-99) mg/dl POC Glucose 99 (70-99) Calcium 8.9 (8.5-10.1) mg/dl Phosphorus 2.7 (2.5-4.9) mg/dl Magnesium 2.0 (1.8-2.4) mg/dl A. phagocytophilum DNA 10/05/19 10/05/19 10/05/19 Range/Units 23:08 20:38 16:46 WBC 2.66 L (4.8-10.8) K/uL RBC 3.89 L (4.7-6.1) M/uL Hgb 12.4 L (14.0-18.0) g/dL Hct 36.2 L (42-52) % MCV 93.1 (80-100) fL MCH 31.9 (25-34) pg MCHC 34.3 (32-36) g/dL RDW Std Deviation 46.6 H (36.4-46.3) fL RDW Coeff of Edilberto 13.6 (11.5-14.5) % Plt Count 82 L (130-400) K/uL MPV 9.8 (7.4-10.4) fL Immature Gran % (Auto) % Neut % (Auto) % Lymph % (Auto) % Rogers % (Auto) % Eos % (Auto) % Baso % (Auto) % Immature Gran # (Auto) (0.00-0.02) K/uL Neut # (Auto) (1.4-6.5) K/uL Lymph # (Auto) (1.2-3.4) K/uL Rogers # (Auto) (0.11-0.59) K/uL Eos # (Auto) (0-0.5) K/uL Baso # (Auto) (0-0.2) K/uL Sodium (136-145) mmol/L Potassium (3.5-5.1) mmol/L Chloride (98-107) mmol/L Carbon Dioxide (21-32) mmol/L Anion Gap (3-11) BUN (7-18) mg/dl Creatinine (0.6-1.4) mg/dl Est Cr Clr Drug Dosing ml/min Est GFR ( Amer) Est GFR (Non-Af Amer) BUN/Creatinine Ratio (10-20) Glucose (70-99) mg/dl POC Glucose 128 H 159 H (70-99) Calcium (8.5-10.1) mg/dl Phosphorus (2.5-4.9) mg/dl Magnesium (1.8-2.4) mg/dl A. phagocytophilum DNA 10/05/19 10/05/19 Range/Units 11:39 11:39 WBC (4.8-10.8) K/uL RBC (4.7-6.1) M/uL Hgb (14.0-18.0) g/dL Hct (42-52) % MCV (80-100) fL MCH (25-34) pg MCHC (32-36) g/dL RDW Std Deviation (36.4-46.3) fL RDW Coeff of Edilberto (11.5-14.5) % Plt Count (130-400) K/uL MPV (7.4-10.4) fL Immature Gran % (Auto) % Neut % (Auto) % Lymph % (Auto) % Rogers % (Auto) % Eos % (Auto) % Baso % (Auto) % Immature Gran # (Auto) (0.00-0.02) K/uL Neut # (Auto) (1.4-6.5) K/uL Lymph # (Auto) (1.2-3.4) K/uL Rogers # (Auto) (0.11-0.59) K/uL Eos # (Auto) (0-0.5) K/uL Baso # (Auto) (0-0.2) K/uL Sodium (136-145) mmol/L Potassium (3.5-5.1) mmol/L Chloride (98-107) mmol/L Carbon Dioxide (21-32) mmol/L Anion Gap (3-11) BUN (7-18) mg/dl Creatinine (0.6-1.4) mg/dl Est Cr Clr Drug Dosing ml/min Est GFR ( Amer) Est GFR (Non-Af Amer) BUN/Creatinine Ratio (10-20) Glucose (70-99) mg/dl POC Glucose 121 H (70-99) Calcium (8.5-10.1) mg/dl Phosphorus (2.5-4.9) mg/dl Magnesium (1.8-2.4) mg/dl A. phagocytophilum DNA Pending Medications Administered Current Inpatient Medications Acetaminophen (Tylenol) 650 mg PO Q4H PRN PRN Reason: Pain or Fever Stop: 11/03/19 21:06 Last Admin: 10/05/19 20:47 Dose: 650 mg Documented by: Aspirin (Ecotrin Ectab) 81 mg PO DAILY [facility] Stop: 11/04/19 08:59 Last Admin: 10/06/19 08:05 Dose: 81 mg Documented by: Atorvastatin Calcium (Lipitor) 40 mg PO QAM [facility] Stop: 11/04/19 08:59 Last Admin: 10/06/19 08:05 Dose: 40 mg Documented by: Dextrose (Dextrose 50%) 25 - 50 ml IV UD PRN; Protocol PRN Reason: Hypoglycemia Protocol Stop: 11/03/19 21:06 Glucagon (Glucagen) 1 mg SQ UD PRN; Protocol PRN Reason: Hypoglycemia Protocol Stop: 11/03/19 21:06 Glucose (Glucose 40%) 15 - 30 gm PO UD PRN; Protocol PRN Reason: Hypoglycemia Protocol Stop: 11/03/19 21:06 Glucose (Dex4 Glucose) 4 - 8 tabs PO UD PRN; Protocol PRN Reason: Hypoglycemia Protocol Stop: 11/03/19 21:06 Piperacillin Sod/Tazobactam (Sod 3.375 gm/ Dextrose) 115 mls @ 28.75 mls/hr IV Q8H [facility]; Protocol Stop: 10/08/19 08:59 Last Admin: 10/06/19 09:13 Dose: 28.8 mls/hr Documented by: Insulin Aspart (Novolog Flexpen) 0 units SC ACHS [facility] Stop: 11/03/19 21:06 Last Admin: 10/06/19 08:23 Dose: Not Given Documented by: Metoprolol Succinate (Toprol Xl) 25 mg PO QAM [facility] Stop: 11/04/19 08:59 Last Admin: 10/06/19 08:05 Dose: 25 mg Documented by: Miscellaneous (Carbohydrates For Hypoglycemia) 15 - 30 gm PO UD PRN PRN Reason: Hypoglycemia Protocol Stop: 11/03/19 21:06 Miscellaneous Information (Consult) 1 ea N/A UD PRN PRN Reason: Consult Stop: 11/03/19 21:29 Nitroglycerin (Nitrostat) 0.4 mg SL UD PRN PRN Reason: Chest Pain Stop: 11/03/19 21:06 Tramadol HCl (Ultram) 25 mg PO Q4H PRN PRN Reason: Pain Stop: 11/04/19 17:12 Last Admin: 10/06/19 09:14 Dose: 25 mg Documented by: (1) Fever Fever type: unspecified Qualified Code(s): R50.9 - Fever, unspecified
[2019-10-06] MEDS: SENNA 8.6 MG TAB PO SCH (15:09)
[2019-10-06] MEDS: POLYETHYLENE (MIRALAX) 17 GM PACK PO SCH (15:10)
[2019-10-06] MEDS ORDERED: IBUPROFEN 200 MG TAB PO PRN (15:46)
[2019-10-06] MEDS: ACETAMINOPHEN 325 MG TAB PO PRN (18:35)
[2019-10-07] MEDS: PIPERACILLIN/TAZOBACTAM 3.375 GM in DEXTROSE 5% 100 ML IV SCH ×3 (01:45→17:15)
[2019-10-07 06:48] LABS: Hematocrit (blood only) 37.3 % (42-52); Hemoglobin 12.7 g/dL (14.0-18.0); Mean Corpuscular Hemoglobin 31.9 pg (25-34); Mean Corpuscular Volume 93.7 fL (80-100); RDW Coefficient of Variation 13.4 % (11.5-14.5); RDW Standard Deviation 46.5 fL (36.4-46.3); Red Blood Count 3.98 M/uL (4.7-6.1); White Blood Count 2.83 K/uL (4.8-10.8)
[2019-10-07 06:50] LABS: Platelet Count 93 K/uL (130-400)
[2019-10-07 07:12] LABS: Basophils # (auto) 0.01 K/uL (0-0.2); Basophils % (auto) 0.4 %; Eosinophils # (auto) 0.08 K/uL (0-0.5); Eosinophils % (auto) 2.8 %; Lymphocytes # (auto) 1.12 K/uL (1.2-3.4); Lymphocytes % (auto) 39.6 %; Monocytes # (auto) 0.35 K/uL (0.11-0.59); Monocytes % (auto) 12.4 %; Neutrophils # (auto) 1.27 K/uL (1.4-6.5); Neutrophils % (auto) 44.8 %
[2019-10-07 07:14] LABS: BUN Creatinine Ratio 18.5 (10-20); Calcium 8.5 mg/dl (8.5-10.1); Creatinine Clr Calc Pharmacy 58.2 ml/min; Est GFR (African American) 83.4; Est GFR (Non-African American) 71.9
[2019-10-07] MEDS: SENNA 8.6 MG TAB PO SCH (08:09)
[2019-10-07] MEDS: POLYETHYLENE (MIRALAX) 17 GM PACK PO SCH (08:09)
[2019-10-07] MEDS: METOPROLOL SUCC 25MG EXT REL TAB PO SCH (08:10)
[2019-10-07] MEDS: ATORVASTATIN 40 MG TAB PO SCH (08:10)
[2019-10-07] MEDS: INSULIN ASPART 100 UNITS/ML 3 ML PEN SC SCH ×4 (08:10→21:01)
[2019-10-07] MEDS: ASPIRIN 81 MG ECTAB PO SCH (08:10)
[2019-10-07] MEDS: TRAMADOL HCL 50 MG TABLET PO PRN ×2 (09:40→16:06)
--- NOTE | 2019-10-07 13:21 | Neurology Consultation ---
Date of Consultation October 07, 2019 Assessment & Plan (1) Headache: 1. CT head no acute abnormalities 2. sed rate 8 3. MRI brain with and without - recommended and discussed with Dr Campbell. 4. continue Tylenol prn for now 5. smoking cessation discussed 6. confusion issues can be addressed as outpatient in clinic 7. if no abnormalities on MRI could offer a daily prophy medication for headache or could start with Mg ++ox 400 mg and riboflavin 400 mg daily Supervising Physician Co-Signing Physician Notes I have seen and discussed above patient with Dr Taryn Blackwell, neurology. PT seen and examined, hx, labs imaging reviewed. 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 No photophobia, hx of prior headache, rash, visual sx or wt loss. MRI, esr,unremarkalbe. WBC mildly low lyme neg. CHAN mildly improved with tramadol. Exam notable for pt awake, alert, nml language. No nuchal rigidity. No papilledema, nml venous pulsations. Strength full. R KJ nml, R AJ nml, left 1+ toes down, nml cerebellar. Imp headache associated with presumed viral syndrome. No evidence of increased ICP, no meningeal signs. No evidence of pathologic weakness such as GBS. No objection to use of tramadol which pt appears to be taking and tolerating, could try riboflavin, magnesium. If headache persists could try gabapentin. Would avoid steroids due to DM. Consider checking a West Nile titer. RICARDO Blackwell MD History of Present Illness Reason for Consultation: persistent headache new onset Requesting Physician: Sergey Campbell MD Attending Physician: Sergey Campbell MD History of Present Illness Eyad is a 78 year old male with PMH-CAD s/p WALKER to RCA in 03/2018, AAA s/p repair, HTN, HLD, DM II presented to ER with c/o weakness, myalgias and generalized weakness x 3 days, fever 101F/102F. he is also complaining of a frontal/parietal CHAN for past 2-3 days. He was taking Aleve with no relief. He was seen by his PCP and was started on doxycycline for possible Lyme. Had negative Lyme titer yesterday. He currently states he is feeling ok now and has walked around the unit several times with his family. He still has a headache which is relieved with tylenol but returns about an hour after taking it. He states it is pounding, bilaterally at temples earlier but now when he gets it it is only on the left temp area. Currently he does not have a headache. Daughter is concerned because he has a lot of confusion but this is not new. He also had a fall and hit his head about a week ago but had no LOC or headache after that incident. Denies CP, SOB, abdominal pain, one sided weakness, numbness tingling, N, V, bowel or bladder symptoms. +smoker, 16 oz coffee daily, does not drink much water, minimal EtOH use. Allergies Allergy/AdvReac Type Severity Reaction Status Date / Time No Known Allergies Allergy Verified 10/04/19 16:52 Home Medications Home Medications Medication Instructions Recorded Confirmed Type aspirin 81 mg PO DAILY 10/04/19 10/04/19 History atorvastatin 40 mg PO QAM 10/04/19 10/04/19 History doxycycline hyclate 100 mg PO BID 10/04/19 10/04/19 History metformin 500 mg PO BIDM 10/04/19 10/04/19 History metoprolol succinate 25 mg PO QAM 10/04/19 10/04/19 History nitroglycerin 0.4 mg SUBLINGUAL DIRECTED PRN 10/04/19 10/04/19 History prasugrel 10 mg PO QAM 10/04/19 10/04/19 History Patient History Medical History Diabetes mellitus, type II (Chronic) Dyslipidemia (Chronic) HTN (hypertension) (Chronic) Coronary artery disease (Chronic) Surgical History S/P AAA repair (Chronic) History of cardiac cath (Chronic) 03/2018 - WALKER to RCA No pertinent past surgical history Family History Other Cancer Diabetes Heart disease Hypertension Social History Preferred Language: Georgian Communication Ability: Effective Beliefs That Will Affect Care: None Current Living Situation: Spouse Other Information That Helps Us Care for You: No Feels Safe at Home: Yes Safety Concerns: Feels Safe At This Time Smoking Status: Current every day smoker Tobacco Type: cigarettes ; Cigarettes Per Day: less than pack ; Second Hand Exposure: No ; Tobacco Cessation Education Requested by Patient: No Hx Alcohol Use: No Hx Substance Use: No Physical Exam Physical Exam: Physical Exam: Constitutional: appearance nourished, healthy and normal Ears, Nose, Mouth and Throat: mucous membranes moist, no injection and skin normal, eyes normal Cardiovascular: normal S-1 and S-2 and regular rate and rhythm Respiratory: course breath sounds Musculoskeletal: no peripheral edema and good distal pulses, left index finger distal joint amputation, well healed Skin: no stigmata of neurocutaneous disease noted and normal and intact Eyes: extraocular muscles intact (EOMI) and pupils equal, round and reactive to light (PERRL), gross peripheral vision intact NEUROLOGIC EXAMINATION: Mental status: Alert and interactive Oriented to person Speech fluent with no evidence of aphasia Cranial Nerves smile eye brow raise symmetric Reflexes: Deep tendon reflexes were symmetrical and graded 2/5. Sensory: light cool and vibration intact Coordination: finger to nose no bi pass Gait/Stance: Posture normal sitting up in bed Motor: Negative for pronator drift of out stretched arms with eyes closed. 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
--- NOTE | 2019-10-07 14:17 | Hospitalist Progress Note ---
Date of Service October 07, 2019 Assessment & Plan (1) Fever: Etiology unclear T-max 37.7 Celsius on admission, and since then afebrile work up (below) (2) Generalized weakness: Pt is 78 y/o M with PMH CAD s/p WALKER to RCA in 03/2018, AAA s/p repair, HTN, dyslipidemia, DM II presented with c/o generalized weakness, myalgias, CHAN x 3 days. C/O fever 101F -102F. No cough, SOB, N/V/D. Denies known tick bites or ill contacts, recent travel, rashes. Was out hunting with friends 1 week ago. Was started on doxycycline by PCP on Thursday for possible lyme disease. Outpatient with normal CK. In ER afebrile, P: 83, R: 20, BP: 123/69, 97% on RA. WBC: 5, H/H: 13.5/39.5, Plt: 88, Na: 132, BUN: 21, Cr: 1.16, GFR: 60.8, POC Lactic acid: 0.91, Negative flu swab, UA not consistent with UTI CT Head: no acute changes CXR: no infiltrate -Negative Lyme titer at clinic on Thursday -Peripheral smear not c/w anaplasmosis -Anaplasmosis PCR - negative -Ehrlichiosis PCR - pending -Blood cultures- negative -Urine culture- negative -Zosyn for now, will discuss w/ neuro need for further Abx, as all infectious work up thus fur negative -CBC, BMP in am -Weakness much improved, patient is already able to get up from bed or chair and able to walk in the hallway which is big improvement from previous. However he continues to have headaches. Headache CT head in the ED negative for any acute process -Given Tylenol in ER with resolution of CHAN and improvement of myalgias and reported decreased weakness -Several neuro checks performed, normal -At this point not well controlled with Tylenol, tramadol 25 mg as needed, seems to be working better, ibuprofen ordered as well as needed Given temporal location of patient's headache, obtained ESR (8), not elevated Consulted neurology given persistent new onset of headache difficult to control with meds, recommend brain MRI Thrombocytopenia Platelet count 86K, patient is also on dual antiplatelet therapy due to cardiac stent placed last year (more than a year ago) Mildly increased to 90sK today Instead of dual antiplatelet therapy , will cont. only aspirin for now Likely secondary due to underlying etiology, will continue to closely monitor (3) Coronary artery disease: CAD s/p WALKER to RCA in 03/2018 No CP, SOB - at home takes ASA, metoprolol, atorvastatin, Effient -will continue only with aspirin for now instead of dual antiplatelet therapy given his low platelet count (4) Diabetes mellitus, type II: A1c: 6.1 on 08/15/19 -Hold metformin -Novolog sliding scale per protocol (5) HTN (hypertension): Stable -Continue metoprolol DVT Prophylaxis -SCDs for now with low Plt Full Code as per discussion with pt Follows with Dr Dillon for routine care Subjective 10/05/2019 Pt is already getting better, his strength is improved, able to walk in the hallway He was unable to get up from bed previously due to weakness. However about a week ago he was out hunting with his friends and did not have any weakness or any other symptoms. Continues to complain about bilateral temporal headache. At first Tylenol worked for headache, now tried tramadol 25 mg instead. Several neuro exams performed, NEUROLOGICAL: Alert, oriented, and cooperative. Cranial nerves, sensation and strength grossly intact. Pupils round, equal, and react to light, EOMs are full. 10/06/2019 Continues to complain about headache, currently his CHAN is unilateral temporal headache. Neurochecks normal. ESR 8 10/07/2019 Patient is lying in bed, at the bedside. Patient says that he feels well overall, his strength seems to be back to baseline. He denies any fevers, chills, chest pain, shortness of breath, nausea, vomiting. Neurology consulted for persistent headaches. Neurology present at the bedside during my exam and interview. Recommend MRI of the brain. Review of Systems Review of Systems: All systems reviewed & are unremarkable except as noted in HPI & below Constitutional: no fever and no chills Respiratory: no cough and no dyspnea Cardiovascular: no chest pain, no palpitations and no edema Gastrointestinal: no abdominal pain, no nausea and no vomiting Physical Exam Physical Exam: General: Elderly male in no acute distress, WD/WN Head: normocephalic, atraumatic Eyes: PERRL, EOM's intact, conjunctiva non-injected, anicteric sclerae ENT: normal inspection external ears, nose, mucous membranes moist Neck: supple, trachea midline, non-tender Lungs: clear, no respiratory distress, no wheezing/rhonchi/rales CV: RRR, no murmur, no pretibial edema Abd: normal BS, soft, non-tender Ext: no cyanosis, no calf tenderness; strength 5/5 throughout, moves all 4 extremities spontaneously and without difficulty Neuro: A&O x 3, no focal deficits noted, normal affect Skin: warm, dry Results & Data Vital Signs (Past 12 Hours) Vital Signs Temp Pulse Pulse Resp BP BP Pulse Ox 10/07/19 12:03 36.4 C L 64 18 112/69 99 10/07/19 07:15 57 L 10/07/19 06:58 36.5 C 66 18 125/79 97 Laboratory Results 10/07/19 10/07/19 10/07/19 Range/Units 11:58 07:35 06:27 WBC (4.8-10.8) K/uL RBC (4.7-6.1) M/uL Hgb (14.0-18.0) g/dL Hct (42-52) % MCV (80-100) fL MCH (25-34) pg MCHC (32-36) g/dL RDW Std Deviation (36.4-46.3) fL RDW Coeff of Edilberto (11.5-14.5) % Plt Count (130-400) K/uL MPV (7.4-10.4) fL Immature Gran % (Auto) % Neut % (Auto) % Lymph % (Auto) % [place] % (Auto) % Eos % (Auto) % Baso % (Auto) % Immature Gran # (Auto) (0.00-0.02) K/uL Neut # (Auto) (1.4-6.5) K/uL Lymph # (Auto) (1.2-3.4) K/uL [place] # (Auto) (0.11-0.59) K/uL Eos # (Auto) (0-0.5) K/uL Baso # (Auto) (0-0.2) K/uL ESR (0-14) mm/hr Sodium (136-145) mmol/L Potassium (3.5-5.1) mmol/L Chloride (98-107) mmol/L Carbon Dioxide (21-32) mmol/L Anion Gap (3-11) BUN (7-18) mg/dl Creatinine (0.6-1.4) mg/dl Est Cr Clr Drug Dosing ml/min Est GFR ( Amer) Est GFR (Non-Af Amer) BUN/Creatinine Ratio (10-20) Glucose (70-99) mg/dl POC Glucose 110 H 105 H (70-99) Calcium (8.5-10.1) mg/dl A. phagocytophilum DNA (Not Detected) E.chaffeensis DNA (PCR) Pending 10/07/19 10/07/19 10/06/19 Range/Units 06:27 06:27 20:17 WBC 2.83 L (4.8-10.8) K/uL RBC 3.98 L (4.7-6.1) M/uL Hgb 12.7 L (14.0-18.0) g/dL Hct 37.3 L (42-52) % MCV 93.7 (80-100) fL MCH 31.9 (25-34) pg MCHC 34.0 (32-36) g/dL RDW Std Deviation 46.5 H (36.4-46.3) fL RDW Coeff of Edilberto 13.4 (11.5-14.5) % Plt Count 93 L (130-400) K/uL MPV 10.0 (7.4-10.4) fL Immature Gran % (Auto) 0.0 % Neut % (Auto) 44.8 % Lymph % (Auto) 39.6 % [place] % (Auto) 12.4 % Eos % (Auto) 2.8 % Baso % (Auto) 0.4 % Immature Gran # (Auto) 0.00 (0.00-0.02) K/uL Neut # (Auto) 1.27 L (1.4-6.5) K/uL Lymph # (Auto) 1.12 L (1.2-3.4) K/uL [place] # (Auto) 0.35 (0.11-0.59) K/uL Eos # (Auto) 0.08 (0-0.5) K/uL Baso # (Auto) 0.01 (0-0.2) K/uL ESR (0-14) mm/hr Sodium 137 (136-145) mmol/L Potassium 4.0 (3.5-5.1) mmol/L Chloride 106 (98-107) mmol/L Carbon Dioxide 26 (21-32) mmol/L Anion Gap 5.0 (3-11) BUN 19 H (7-18) mg/dl Creatinine 1.01 (0.6-1.4) mg/dl Est Cr Clr Drug Dosing 58.2 ml/min Est GFR ( Amer) 83.4 Est GFR (Non-Af Amer) 71.9 BUN/Creatinine Ratio 18.5 (10-20) Glucose 101 H (70-99) mg/dl POC Glucose 168 H (70-99) Calcium 8.5 (8.5-10.1) mg/dl A. phagocytophilum DNA (Not Detected) E.chaffeensis DNA (PCR) 10/06/19 10/06/19 10/05/19 Range/Units 16:31 06:08 11:39 WBC (4.8-10.8) K/uL RBC (4.7-6.1) M/uL Hgb (14.0-18.0) g/dL Hct (42-52) % MCV (80-100) fL MCH (25-34) pg MCHC (32-36) g/dL RDW Std Deviation (36.4-46.3) fL RDW Coeff of Edilberto (11.5-14.5) % Plt Count (130-400) K/uL MPV (7.4-10.4) fL Immature Gran % (Auto) % Neut % (Auto) % Lymph % (Auto) % [place] % (Auto) % Eos % (Auto) % Baso % (Auto) % Immature Gran # (Auto) (0.00-0.02) K/uL Neut # (Auto) (1.4-6.5) K/uL Lymph # (Auto) (1.2-3.4) K/uL [place] # (Auto) (0.11-0.59) K/uL Eos # (Auto) (0-0.5) K/uL Baso # (Auto) (0-0.2) K/uL ESR 8 (0-14) mm/hr Sodium (136-145) mmol/L Potassium (3.5-5.1) mmol/L Chloride (98-107) mmol/L Carbon Dioxide (21-32) mmol/L Anion Gap (3-11) BUN (7-18) mg/dl Creatinine (0.6-1.4) mg/dl Est Cr Clr Drug Dosing ml/min Est GFR ( Amer) Est GFR (Non-Af Amer) BUN/Creatinine Ratio (10-20) Glucose (70-99) mg/dl POC Glucose 137 H (70-99) Calcium (8.5-10.1) mg/dl A. phagocytophilum DNA Not Detected (Not Detected) E.chaffeensis DNA (PCR) Medications Administered Current Inpatient Medications Acetaminophen (Tylenol) 650 mg PO Q4H PRN PRN Reason: Pain or Fever Stop: 11/03/19 21:06 Last Admin: 10/06/19 18:35 Dose: 650 mg Documented by: Aspirin (Ecotrin Ectab) 81 mg PO DAILY EARL Stop: 11/04/19 08:59 Last Admin: 10/07/19 08:10 Dose: 81 mg Documented by: Atorvastatin Calcium (Lipitor) 40 mg PO QAM EARL Stop: 11/04/19 08:59 Last Admin: 10/07/19 08:10 Dose: 40 mg Documented by: Dextrose (Dextrose 50%) 25 - 50 ml IV UD PRN; Protocol PRN Reason: Hypoglycemia Protocol Stop: 11/03/19 21:06 Glucagon (Glucagen) 1 mg SQ UD PRN; Protocol PRN Reason: Hypoglycemia Protocol Stop: 11/03/19 21:06 Glucose (Glucose 40%) 15 - 30 gm PO UD PRN; Protocol PRN Reason: Hypoglycemia Protocol Stop: 11/03/19 21:06 Glucose (Dex4 Glucose) 4 - 8 tabs PO UD PRN; Protocol PRN Reason: Hypoglycemia Protocol Stop: 11/03/19 21:06 Piperacillin Sod/Tazobactam (Sod 3.375 gm/ Dextrose) 115 mls @ 28.75 mls/hr IV Q8H EARL; Protocol Stop: 10/08/19 08:59 Last Infusion: 10/07/19 12:08 Dose: Infused Documented by: Ibuprofen (Advil) 400 mg PO QID PRN PRN Reason: Headache Stop: 11/05/19 15:45 Insulin Aspart (Novolog Flexpen) 0 units SC ACHS EARL Stop: 11/03/19 21:06 Last Admin: 10/07/19 12:13 Dose: Not Given Documented by: Metoprolol Succinate (Toprol Xl) 25 mg PO QAM [facility] Stop: 11/04/19 08:59 Last Admin: 10/07/19 08:10 Dose: 25 mg Documented by: Miscellaneous (Carbohydrates For Hypoglycemia) 15 - 30 gm PO UD PRN PRN Reason: Hypoglycemia Protocol Stop: 11/03/19 21:06 Miscellaneous Information (Consult) 1 ea N/A UD PRN PRN Reason: Consult Stop: 11/03/19 21:29 Nitroglycerin (Nitrostat) 0.4 mg SL UD PRN PRN Reason: Chest Pain Stop: 11/03/19 21:06 Polyethylene Glycol (Miralax Powder Packet) 17 gm PO DAILY [facility] Stop: 11/05/19 15:59 Last Admin: 10/07/19 08:09 Dose: Not Given Documented by: Sennosides (Senokot) 8.6 mg PO QAM [facility] Stop: 11/05/19 14:59 Last Admin: 10/07/19 08:09 Dose: Not Given Documented by: Tramadol HCl (Ultram) 25 mg PO Q4H PRN PRN Reason: Pain Stop: 11/04/19 17:12 Last Admin: 10/07/19 09:40 Dose: 25 mg Documented by: (1) Fever Fever type: unspecified Qualified Code(s): R50.9 - Fever, unspecified
[2019-10-07] MEDS ORDERED: GADOBUTROL 65ML VIAL IV PRN (19:49)
--- NOTE | 2019-10-07 20:00 | Magnetic Resonance Report ---
MR brain wo/w con CLINICAL HISTORY: 78 years-old Male presenting with Persistent headache since Reji, history of blad justin cancer. TECHNIQUE: Multisequence, multiplanar MR imaging of the brain was performed before and after the admi nistration of intravenous contrast. IV contrast: 7 mL of Gadavist. COMPARISON: Noncontrast CT head from 10/04/2019 and contrast enhanced brain MR from 2011. FINDINGS: Localizer images: Unremarkable. Bone marrow signal intensity within the calvarium within normal limits. Normal midline sagittal structures. Proportional ventricular and sulcal prominence, possibly age-rela daren parenchymal volume loss though advanced. No mass effect or midline shift. No restricted diffusion or hemorrhage. Periventricular and subcortical white matter T2/FLAIR hyperintensity, nonspecific but likely indicative of chronic small vessel ischemic change. No abnormal parenchymal enhancement. No extra-axial fluid collection. T2 skull base flow voids preserved. Bilateral [place] lenses are abse nt. IMPRESSION: 1. Chronic small vessel ischemic change. No acute intracranial abnormality. 2. No evidence of intracranial metastatic disease. Electronically signed by: Jerry Asencio M.D. 10/07/2019 7:58 PM
[2019-10-08] MEDS: PIPERACILLIN/TAZOBACTAM 3.375 GM in DEXTROSE 5% 100 ML IV SCH (00:45)
[2019-10-08 07:16] LABS: Hematocrit (blood only) 37.7 % (42-52); Mean Corpuscular Hemoglobin 31.8 pg (25-34); Mean Corpuscular Hgb Conc 34.5 g/dL (32-36); Mean Corpuscular Volume 92.2 fL (80-100); Mean Platelet Volume 9.7 fL (7.4-10.4); Platelet Count 121 K/uL (130-400); RDW Coefficient of Variation 13.3 % (11.5-14.5); RDW Standard Deviation 44.9 fL (36.4-46.3); Red Blood Count 4.09 M/uL (4.7-6.1); White Blood Count 3.69 K/uL (4.8-10.8)
[2019-10-08 07:48] LABS: BUN Creatinine Ratio 17.7 (10-20); Calcium 8.9 mg/dl (8.5-10.1); Est GFR (African American) 79.5; Est GFR (Non-African American) 68.6; Magnesium 2.2 mg/dl (1.8-2.4); Potassium 4.2 mmol/L (3.5-5.1)
[2019-10-08] MEDS: ASPIRIN 81 MG ECTAB PO SCH (08:17)
[2019-10-08] MEDS: POLYETHYLENE (MIRALAX) 17 GM PACK PO SCH (08:17)
[2019-10-08] MEDS: SENNA 8.6 MG TAB PO SCH (08:17)
[2019-10-08] MEDS: ATORVASTATIN 40 MG TAB PO SCH (08:18)
[2019-10-08] MEDS: METOPROLOL SUCC 25MG EXT REL TAB PO SCH (08:18)
[2019-10-08] MEDS: INSULIN ASPART 100 UNITS/ML 3 ML PEN SC SCH (09:12)
--- NOTE | 2019-10-08 09:27 | Progress Note ---
DATE: 10/08/2019 I am seeing Mr. Maldonado in followup of his headache. The patient's MRI of the brain, which I have reviewed, shows chronic small vessel ischemic changes, no acute abnormality, no intracranial metastatic disease or meningeal enhancement. The patient indicates he has not needed to take anything for headache overnight. He is feeling generally well and strong. PHYSICAL EXAMINATION: VITAL SIGNS: 110/70, 64, 20, 36.4, 97% on room air. GENERAL: The patient is awake and alert and oriented to person, place and time. His neck is supple. There is normal extraocular motility, visual moyer, facial symmetry. Strength is full in the upper and lower extremities. Ankle jerks are obtainable. Toes are downgoing. His gait is unremarkable. IMPRESSION: Headache associated with a presumed viral illness, it is gradually improving. I see no meningeal signs. I explained to the patient, I believe that the headache will gradually decrease over the ensuing days. If it does not, he can let us know. No objection to trying tramadol on a p.r.n. basis as it seems to have been helpful as well as tolerated without adverse effect. Consider checking a West Nile virus titer. No evidence of a pathologic disorder associated with weakness such as Guillain-[place]. We will sign off.
--- NOTE | 2019-10-08 09:44 | Discharge Summary ---
Date of Service October 08, 2019 Admission HPI Per Admitting Provider Pt is 78 y/o M with PMH CAD s/p WALEKR to RCA in 03/2018, AAA s/p repair, HTN, dyslipidemia, DM II presented to ER with c/o weakness, myalgias x 3 days. C/O fever 101F yesterday and 102F today. C/O diffuse myalgias and generalized weakness. C/O frontal/parietal CHAN for past 2-3 days. Pt states took Aleve yesterday without relief of CHAN. 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 Denies diaphoresis, N/V/D/C, CHAN, dizziness, syncope, vision changes, neck pain, photophobia, CP, SOB, orthopnea, palpitations, cough, sore throat, choking, otalgia, rhinorrhea, abdominal pain, paresthesias, extremity edema, rashes, urinary symptoms, known tick bites. Denies ill contacts, recent travel. Had influenza vaccine 07/2019. Pt seen by PCP yesterday. Was started on doxycycline for possible Lyme. Had negative Lyme titer yesterday. Also had CK WNL, WBC: 6.9, Plt: 125, TSH: 1.1. Discharge Data Allergies Allergy/AdvReac Type Severity Reaction Status Date / Time No Known Allergies Allergy Verified 10/04/19 16:52 Consultations 10/04/19 18:47 ED Decision to Admit Stat 10/07/19 09:11 Consult Neurology Routine Ordered Studies 10/04/19 16:17 CT head/brain wo con Stat 10/07/19 13:32 MR brain wo/w con Routine Hospital Course (1) Fever: Etiology unclear T-max 37.7 Celsius on admission, and since then afebrile work up (below) (2) Generalized weakness: Pt is 78 y/o M with PMH CAD s/p WALKER to RCA in 03/2018, AAA s/p repair, HTN, dyslipidemia, DM II presented with c/o generalized weakness, myalgias, CHAN x 3 days. C/O fever 101F -102F. No cough, SOB, N/V/D. Denies known tick bites or ill contacts, recent travel, rashes. Was out hunting with friends 1 week ago. Was started on doxycycline by PCP on Thursday for possible lyme disease. Outpatient with normal CK. In ER afebrile, P: 83, R: 20, BP: 123/69, 97% on RA. WBC: 5, H/H: 13.5/39.5, Plt: 88, Na: 132, BUN: 21, Cr: 1.16, GFR: 60.8, POC Lactic acid: 0.91, Negative flu swab, UA not consistent with UTI CT Head: no acute changes CXR: no infiltrate -Negative Lyme titer at clinic on Thursday -Peripheral smear not c/w anaplasmosis -Anaplasmosis PCR - negative -Ehrlichiosis PCR - pending -Blood cultures- negative -Urine culture- negative -Zosyn for now, will discuss w/ neuro need for further Abx, as all infectious work up thus fur negative -CBC, BMP in am -Weakness much improved, patient is already able to get up from bed or chair and able to walk in the hallway which is big improvement from previous. However he continues to have headaches. Headache CT head in the ED negative for any acute process -Given Tylenol in ER with resolution of CHAN and improvement of myalgias and reported decreased weakness -Several neuro checks performed, normal -At this point not well controlled with Tylenol, tramadol 25 mg as needed, seems to be working better, ibuprofen ordered as well as needed Given temporal location of patient's headache, obtained ESR (8), not elevated Consulted neurology given persistent new onset of headache difficult to control with meds, recommend brain MRI Thrombocytopenia Platelet count 86K, patient is also on dual antiplatelet therapy due to cardiac stent placed last year (more than a year ago) Mildly increased to 90sK today Instead of dual antiplatelet therapy , will cont. only aspirin for now Likely secondary due to underlying etiology, will continue to closely monitor (3) Coronary artery disease: CAD s/p WALKER to RCA in 03/2018 No CP, SOB - at home takes ASA, metoprolol, atorvastatin, Effient -will continue only with aspirin for now instead of dual antiplatelet therapy given his low platelet count (4) Diabetes mellitus, type II: A1c: 6.1 on 08/15/19 -Hold metformin -Novolog sliding scale per protocol (5) HTN (hypertension): Stable -Continue metoprolol DVT Prophylaxis -SCDs for now with low Plt Full Code as per discussion with pt Follows with Dr Dillon for routine care Discharge Plan Discharge Items Reason For Visit: FEVER Medications and DC Order Prescriptions: No Action atorvastatin 40 mg tablet 40 mg PO QAM RF: 0 metformin 500 mg tablet 500 mg PO BIDM RF: 0 doxycycline hyclate 100 mg capsule 100 mg PO BID RF: 0 nitroglycerin 0.4 mg tablet, sublingual 0.4 mg sublingual DIRECTED PRN (Reason: Chest Pain) RF: 0 metoprolol succinate 25 mg tablet extended release 24 hr 25 mg PO QAM RF: 0 prasugrel 10 mg tablet 10 mg PO QAM RF: 0 aspirin 81 mg Tablet,Chewable 81 mg PO DAILY RF: 0 Admission Data Admit Date/Time: 10/06/19 14:18 Attending Provider: Sergey Campbell Admit Provider: Jonas Devine Primary Care Provider: Poncho Dillon Other Providers: Jonas Devine ; Taryn Presley ; Eyad Villagran ; Taryn Blackwell ; Nathanael Rosales
--- NOTE | 2019-10-08 10:32 | Discharge Summary ---
Date of Service October 08, 2019 Admission HPI Per Admitting Provider Pt is 78 y/o M with PMH CAD s/p WALKER to RCA in 03/2018, AAA s/p repair, HTN, dyslipidemia, DM II presented to ER with c/o weakness, myalgias x 3 days. C/O fever 101F yesterday and 102F today. C/O diffuse myalgias and generalized weakness. C/O frontal/parietal CHAN for past 2-3 days. Pt states took Aleve yesterday without relief of CHAN. 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 Denies diaphoresis, N/V/D/C, CHAN, dizziness, syncope, vision changes, neck pain, photophobia, CP, SOB, orthopnea, palpitations, cough, sore throat, choking, otalgia, rhinorrhea, abdominal pain, paresthesias, extremity edema, rashes, urinary symptoms, known tick bites. Denies ill contacts, recent travel. Had influenza vaccine 07/2019. Pt seen by PCP yesterday. Was started on doxycycline for possible Lyme. Had negative Lyme titer yesterday. Also had CK WNL Admission Exam Per Admitting Provider General: no distress, WDWN Head: normocephalic, atraumatic Eyes: PERRL, EOM's intact, conjunctiva non-injected, anicteric ENT: normal inspection external ears, nose, mucous membranes moist Neck: supple, trachea midline, non-tender Lungs: clear, no respiratory distress, no wheezing/rhonchi/rales CV: RRR, no murmur, no pretibial edema Abd: normal BS, soft, non-tender Ext: no cyanosis, no calf tenderness; strength 4/5 throughout Neuro: A&O x 3, no focal deficits noted, normal affect Skin: warm, dry Principal Diagnosis Fever, generalized weakness likely secondary to viral infection vs. tick borne dis. (etiology unclear), Headache, Thrombocytopenia (Low platelet count) Discharge Exam General: Elderly male sitting up in chair in no acute distress, WD/WN Head: normocephalic, atraumatic Eyes: PERRL, EOM's intact, conjunctiva non-injected, anicteric sclerae ENT: normal inspection external ears, nose, mucous membranes moist Neck: supple, trachea midline, non-tender Lungs: clear, no respiratory distress, no wheezing/rhonchi/rales CV: RRR, no murmur, no pretibial edema Abd: normal BS, soft, non-tender Ext: no cyanosis, no calf tenderness; strength 5/5 throughout, moves all 4 extremities spontaneously and without difficulty Neuro: A&O x 3, no focal deficits noted, normal affect Skin: warm, dry Discharge Data Allergies Allergy/AdvReac Type Severity Reaction Status Date / Time No Known Allergies Allergy Verified 10/04/19 16:52 Consultations 10/04/19 18:47 ED Decision to Admit Stat 10/07/19 09:11 Consult Neurology Routine Ordered Studies 10/04/19 16:17 CT head/brain wo con Stat Impression: No acute intracranial abnormality. Age-related change as discussed. 10/07/19 13:32 MR brain wo/w con Routine IMPRESSION: 1. Chronic small vessel ischemic change. No acute intracranial abnormality. 2. No evidence of intracranial metastatic disease. Hospital Course (1) Fever: Etiology unclear T-max 37.7 Celsius on admission, and since then afebrile work up (below) (2) Generalized weakness: Pt is 78 y/o M with PMH CAD s/p WALKER to RCA in 03/2018, AAA s/p repair, HTN, dyslipidemia, DM II presented with c/o generalized weakness, myalgias, CHAN x 3 days. C/O fever 101F -102F. No cough, SOB, N/V/D. Denies known tick bites or ill contacts, recent travel, rashes. Was out hunting with friends 1 week ago. Was started on doxycycline by PCP on Thursday for possible lyme disease. Outpatient with normal CK. In ER afebrile, P: 83, R: 20, BP: 123/69, 97% on RA. WBC: 5, H/H: 13.5/39.5, Plt: 88, Na: 132, BUN: 21, Cr: 1.16, GFR: 60.8, POC Lactic acid: 0.91, Negative flu swab, UA not consistent with UTI CT Head: no acute changes CXR: no infiltrate -Negative Lyme titer at clinic on Thursday -Peripheral smear not c/w anaplasmosis -Anaplasmosis PCR - negative -Ehrlichiosis PCR - pending -West Nile virus PCR - pending -Blood cultures- negative -Urine culture- negative -Zosyn for now, will discuss w/ neuro need for further Abx, as all infectious work up thus fur negative -Weakness much improved, patient is already able to get up from bed or chair and able to walk in the hallway which is big improvement from previous. Per patient and family, seems to be at baseline on the day of discharge. However he continued to have headaches. No headaches yesterday and only mild headache today, on the day of discharge. Headache -resolved CT head in the ED negative for any acute process -Given Tylenol in ER with resolution of CHAN and improvement of myalgias and reported decreased weakness -Several neuro checks performed, normal -Later though not well controlled with Tylenol, tramadol 25 mg as needed, seems to be working better, ibuprofen ordered as well as needed Given temporal location of patient's headache, obtained ESR (8), not elevated Consulted neurology given persistent new onset of headache difficult to control with meds, recommend brain MRI -MRI did not show any acute changes Now headaches much improved/resolved, yesterday did not require any tramadol, says he had no headache, now says he has mild headache but much improved from previous Thrombocytopenia -improved Platelet count 86K, patient is also on dual antiplatelet therapy due to cardiac stent placed last year (more than a year ago) Now increased to 120sK Instead of dual antiplatelet therapy , continued only aspirin, will resume dual anti-platelet therapy on discharge today Likely secondary due to underlying etiology (likely viral infection versus tickborne disease) (3) Coronary artery disease: CAD s/p WALKER to RCA in 03/2018 No CP, SOB - at home takes ASA, metoprolol, atorvastatin, Effient -will continue only with aspirin for now instead of dual antiplatelet therapy given his low platelet count, will resume dual antiplatelet therapy on discharge today (4) Diabetes mellitus, type II: A1c: 6.1 on 08/15/19 -Hold metformin -Novolog sliding scale per protocol (5) HTN (hypertension): Stable -Continue metoprolol DVT Prophylaxis -SCDs for now with low Plt Full Code as per discussion with pt Follows with Dr Dillon for routine care Total Time Total Time Spent Total Time Spent (In Minutes): 40 Total Time Includes: Examination of the Patient, Discharge Planning, Medication Reconciliation and Communication With Other Providers Discharge Plan Discharge Items Patient Disposition: Home - Self-Care Reason For Visit: FEVER Discharge Diagnosis: Fever, generalized weakness likely secondary to viral infection vs. tick borne dis. (etiology unclear), Headache, Thrombocytopenia (Low platelet count) Activity: Resume your previous activity Activity Comment: as tolerated Non-emergency contact: Primary Care Provider Call non-emergency contact if: you have any medication questions, your symptoms worsen and your pain is not controlled Follow-up/Referrals: Poncho Dillon MD [Primary Care Provider] - Diet: Carb Consistent or DM2 and Heart Healthy Addtl Attending Provider Instructions: You can take Tylenol for headache as needed, up to 3000 mg a day. You can also use magnesium and riboflavin (available [id number]). Resume taking doxycycline, 100 mg twice a day, as was prescribed by your primary care provider. Follow-up with your primary care provider within the next week. At that time you can discuss further management, results of the pending labs from your hospital stay should be available by then. Pending Studies at Discharge: Yes Studies:: Ehrlichia PCR West Nile Virus PCR Stand-Alone Forms: My [facility], Smoking Cessation Medications and DC Order Prescriptions: Continued atorvastatin 40 mg tablet 40 mg PO QAM RF: 0 metformin 500 mg tablet 500 mg PO BIDM RF: 0 doxycycline hyclate 100 mg capsule 100 mg PO BID RF: 0 nitroglycerin 0.4 mg tablet, sublingual 0.4 mg sublingual DIRECTED PRN (Reason: Chest Pain) RF: 0 metoprolol succinate 25 mg tablet extended release 24 hr 25 mg PO QAM RF: 0 prasugrel 10 mg tablet 10 mg PO QAM RF: 0 aspirin 81 mg Tablet,Chewable 81 mg PO DAILY RF: 0 Discharge Orders: Discharge Order (Routine); Ordered 10/08/19 Ordered By: Sergey Campbell Admission Data Admit Date/Time: 10/06/19 14:18 Attending Provider: Sergey Campbell Admit Provider: Jonas Devine Primary Care Provider: Poncho Dillon Other Providers: Jonas Devine ; Taryn Presley ; Eyad Villagran ; Taryn Blackwell ; Nathanael Rosales
[2019-10-11 04:45] LABS: Ehrlichia chaff DNA Bld Not Detected (Not Detected)
== END 2019-10-08 11:33 | disposition home or self-care (01) | DRG 866 ==
LOC: 2W 15:06 → ED 15:06 → SUATTDRO 19:49 → 2W 20:38

== ENCOUNTER 2021-12-11 16:50 | Observation (INO) ==
--- NOTE | 2021-12-11 16:52 | Emergency Department Note ---
Impression & Plan COVID-19, Generalized weakness, Acute hyponatremia, Diabetes mellitus, type II ED Provider Note NAME: TOMAS MURRAY AGE: 81 SEX: M : 1940 ARRIVES VIA: Ambulance INFORMANT: Patient, ED PROVIDER(S): Kyle Islas MD Chief Complaint: Generalized weakness HPI: Patient does present with generalized weakness which he states started around 7 AM this morning this was after he had awoken. The patient is vaccin ated for COVID-19. The patient denies any upper respiratory symptoms nausea or vomiting. Patient denies any fevers or chills. The patient has not received a booster shot. Patient has had no recent falls or trauma but was unable to get out of bed this morning thus presented here. The patient was concerned about the possibility of stroke but denies any focal numbness tingling or weakness. The patient denies any dysarthria or facial droop. The patient has had no recent falls or trauma. Patient states he has been compliant with his medications. Patient denies any chest pains or shortness of breath and has no lower extremity swelling. ROS: See HPI for pertinent positives and negatives. A total of 10 systems were reviewed and otherwise negative. Past medical history: See below Surgical history: See below Social history: See below Physical Exam: GENERAL: NAD, wearing glasses, non-toxic. EYE EXAM: Normal conjunctiva. PERRL, no anisocoria and EOM's grossly intact w/o pain. OROPHARYNX: Dry mucus membranes. Grossly normal dentition. NECK: Supple, no nuchal rigidity, no adenopathy, non-tender. No signs of meningismus. LUNGS: Clear to auscultation. Normal chest wall mechanics. HEART: NSR, no MRG. ABDOMEN: Abdomen soft, non-tender, normo-active bowel sounds, no masses, no rebound or guarding. BACK: No CVA TTP. SKIN: No rashes and no bruising. UPPER EXTREMITIES: Upper extremities are grossly normal. LOWER EXTREMITIES: Grossly normal, no edema. NEURO EXAM: A&O x3, cranial nerves II-XII grossly intact, normal speech, moves all 4 extremities on command w/o issue. Good finger to nose, no drift, no sensory deficits. Differential diagnoses: Infection, dehydration, metabolic abnormality, hypo/hyperglycemia, electrolyte disturbance, anemia, hypoxia, cardiac sources, intracerebral event, toxicologic, neurologic, as well as other pathologies. Course: Patient was seen and evaluated the bedside. Full history physical exam was performed. EKG interpreted by me Sinus, rate of 75, normal intervals, normal axis, PVC noted. Imaging Studies: See Below Cardiac monitoring: An order was placed for continuous cardiac monitoring. The monitor shows a rate of 88 with sinus rhythm. MDM: Patient did present due to concern for generalized weakness. Blood work is obtained along with CT head and chest x-ray. The patient was ordered IV fluids. Patient has a normal white count with a normal H&H and platelet count. The patient sodium is 135 with mild hypomagnesemia at 1.6. Flu negative. COVID positive. did present I did inform the patient and the of these fin dings. Given the patient's weakness and COVID-positive illness I did discuss that we would try an ambulatory trial as the patient CT head and chest x-ray are unremarkable. The patient was then able to complete an ambulatory trial given the patient's significant weakness I did speak with the on-call hospitalist Dr. Bolaños and the patient was admitted to the medicine service. Past Med/Surg History Medical History (Updated 12/11/21 @ 22:36 by Kyle Islas MD) Coronary artery disease Diabetes mellitus, type II Dyslipidemia HTN (hypertension) Surgical History History of cardiac cath 03/2018 - WALKER to RCA No pertinent past surgical history S/P AAA repair Family History Other Cancer Diabetes Heart disease Hypertension Social History Smoking Status: Former smoker Tobacco Type: Cigarettes and Cigars Cigarettes Per Day: less than pack; Second Hand Exposure: No; Hx Alcohol Use: No Hx Substance Use: No Preferred Language: Puerto Rican Communication Ability: Effective Beliefs That Will Affect Care: None Current Living Situation: Spouse Feels Safe at Home: Yes Assistive Devices: Glasses Immunizations: Vaccinated for COVID-19 but without booster. Allergies Allergies Allergy/AdvReac Type Severity Reaction Status Date / Time No Known Allergies Allergy Verified 12/11/21 18:02 Home Meds Home Medications Medication Instructions Recorded Confirmed aspirin 81 mg chewable tablet 81 mg PO DAILY 10/04/19 12/11/21 atorvastatin 40 mg tablet 40 mg PO QAM 10/04/19 12/11/21 metformin 500 mg tablet 500 mg PO BIDM 10/04/19 12/11/21 metoprolol succinate 25 mg 25 mg PO QAM 10/04/19 12/11/21 tablet,extended release 24 hr nitroglycerin 0.4 mg sublingual 0.4 mg SUBLINGUAL DIRECTED PRN 10/04/19 12/11/21 tablet Results & Data (ED) Vital Signs Vital Signs - 24 hr 12/11/21 16:59 12/11/21 17:11 12/11/21 19:00 Temperature 37.4 C Temperature Source Oral Pulse Rate 78 82 Pulse Rate [Apical] 95 H Pulse Rate from SpO2 Sensor Pulse Rhythm Regular Pulse Rhythm [Apical] Regular Pulse Strength Normal Respiratory Rate 27 H 34 H Respiratory Effort / Characteristics Non-Labored Respiratory Depth Normal Respiratory Pattern Regular Blood Pressure 125/63 125/66 Blood Pressure [Right Arm] 125/63 Blood Pressure Mean 83 85 Blood Pressure Mean [Right Arm] 83 Blood Pressure Position Sitting Blood Pressure Position [Right Arm] Sitting Pulse Oximetry 94 94 96 Oxygen Delivery Method Room Air Room Air Room Air Sepsis Recent Fever Within 48 Hours No Sepsis New/Unexplained Change in Mental Status No Sepsis Action Taken by Nursing No Action Required 12/11/21 20:49 12/11/21 21:00 12/11/21 22:00 Temperature Temperature Source Pulse Rate 80 82 Pulse Rate [Apical] 87 Pulse Rate from SpO2 Sensor 77 Pulse Rhythm Pulse Rhythm [Apical] Pulse Strength Respiratory Rate 28 H 30 H 28 H Respiratory Effort / Characteristics Non-Labored Spontaneous Respiratory Depth Respiratory Pattern Blood Pressure 108/52 L 93/58 L Blood Pressure [Right Arm] 133/50 L Blood Pressure Mean 70 69 Blood Pressure Mean [Right Arm] 77 Blood Pressure Position Blood Pressure Position [Right Arm] Pulse Oximetry 95 97 95 Oxygen Delivery Method Room Air Room Air Room Air Sepsis Recent Fever Within 48 Hours Sepsis New/Unexplained Change in Mental Status Sepsis Action Taken by Residential Medications Current Medication List: was personally reviewed by me Laboratory Data Attestation: I reviewed the patient's lab results. Result diagrams: 12/11/21 17:15 12/11/21 17:15 Lab Results 12/11/21 12/11/21 12/11/21 Range/Units 17:15 17:15 17:15 WBC 8.33 (4.8-10.8) K/uL RBC 4.50 L (4.7-6.1) M/uL Hgb 14.3 (14.0-18.0) g/dL Hct 42.9 (42-52) % MCV 95.3 (80-100) fL MCH 31.8 (25-34) pg MCHC 33.3 (32-36) g/dL RDW Std Deviation 49.2 H (36.4-46.3) fL RDW Coeff of Edilberto 13.9 (11.5-14.5) % Plt Count 130 (130-400) K/uL MPV 9.7 (7.4-10.4) fL Immature Gran % (Auto) 0.1 % Neut % (Auto) 79.9 % Lymph % (Auto) 8.9 % [place] % (Auto) 10.4 % Eos % (Auto) 0.5 % Baso % (Auto) 0.2 % Neut # (Auto) 6.65 H (1.4-6.5) K/uL Lymph # (Auto) 0.74 L (1.2-3.4) K/uL [place] # (Auto) 0.87 H (0.11-0.59) K/uL Eos # (Auto) 0.04 (0-0.5) K/uL Baso # (Auto) 0.02 (0-0.2) K/uL Immature Gran # (Auto) 0.01 (0.00-0.02) K/uL Sodium 135 L (136-145) mmol/L Potassium 4.4 (3.5-5.1) mmol/L Chloride 101 (98-107) mmol/L Carbon Dioxide 27 (21-32) mmol/L Anion Gap 7 (3-11) BUN 15 (6-23) mg/dl Creatinine 1.10 (0.6-1.4) mg/dl Est Cr Clr Drug Dosing 55.7 ml/min Est GFR ( Amer) 73.6 ml/min Est GFR (Non-Af Amer) 63.5 ml/min BUN/Creatinine Ratio 13.6 (10-20) Glucose 99 (70-99) mg/dl Calcium 9.1 (8.5-10.1) mg/dl Magnesium 1.6 L (1.7-2.4) mg/dl Total Bilirubin 0.9 (0.2-1.0) mg/dl AST 16 (13-39) U/L ALT 15 (7-52) U/L Alkaline Phosphatase 65 (34-104) U/L Troponin I < 0.03 (0-0.04) ng/ml Total Protein 7.0 (6.0-8.3) gm/dl Albumin 4.0 (3.4-5.0) gm/dl Globulin 3.0 (2.5-4.0) gm/dl Albumin/Globulin Ratio 1.3 (0.9-2) TSH 0.809 (0.300-4.500) uIu/ml Influ A Molecular Assay (Negative) Influ B Molecular Assay (Negative) SARS-CoV-2, RNA, NAAT (NEGATIVE) 12/11/21 12/11/21 Range/Units 17:35 17:35 WBC (4.8-10.8) K/uL RBC (4.7-6.1) M/uL Hgb (14.0-18.0) g/dL Hct (42-52) % MCV (80-100) fL MCH (25-34) pg MCHC (32-36) g/dL RDW Std Deviation (36.4-46.3) fL RDW Coeff of Edilberto (11.5-14.5) % Plt Count (130-400) K/uL MPV (7.4-10.4) fL Immature Gran % (Auto) % Neut % (Auto) % Lymph % (Auto) % [place] % (Auto) % Eos % (Auto) % Baso % (Auto) % Neut # (Auto) (1.4-6.5) K/uL Lymph # (Auto) (1.2-3.4) K/uL [place] # (Auto) (0.11-0.59) K/uL Eos # (Auto) (0-0.5) K/uL Baso # (Auto) (0-0.2) K/uL Immature Gran # (Auto) (0.00-0.02) K/uL Sodium (136-145) mmol/L Potassium (3.5-5.1) mmol/L Chloride (98-107) mmol/L Carbon Dioxide (21-32) mmol/L Anion Gap (3-11) BUN (6-23) mg/dl Creatinine (0.6-1.4) mg/dl Est Cr Clr Drug Dosing ml/min Est GFR ( Amer) ml/min Est GFR (Non-Af Amer) ml/min BUN/Creatinine Ratio (10-20) Glucose (70-99) mg/dl Calcium (8.5-10.1) mg/dl Magnesium (1.7-2.4) mg/dl Total Bilirubin (0.2-1.0) mg/dl AST (13-39) U/L ALT (7-52) U/L Alkaline Phosphatase (34-104) U/L Troponin I (0-0.04) ng/ml Total Protein (6.0-8.3) gm/dl Albumin (3.4-5.0) gm/dl Globulin (2.5-4.0) gm/dl Albumin/Globulin Ratio (0.9-2) TSH (0.300-4.500) uIu/ml Influ A Molecular Assay Negative (Negative) Influ B Molecular Assay Negative (Negative) SARS-CoV-2, RNA, NAAT POSITIVE A* (NEGATIVE) Administered Medications Discontinued Medications Sodium Chloride (Nss 1000ml) 1,000 mls @ 999 mls/hr IV .[id number] EARL Stop: 12/11/21 18:15 Last Infusion: 12/11/21 19:21 Dose: 0 mls/hr Documented by: [id number] Admin: 12/11/21 17:35 Dose: 999 mls/hr Documented by: [id number] Imaging Data Radiologist's Impression: Chest X-Ray 12/11/21 17:07 XR chest 1V portable HISTORY: 81 years-old Male weakness acute weakness COMPARISON: Chest radiograph 10/04/2019 TECHNIQUE: Portable AP view of the chest FINDINGS: Cardiac silhouette is enlarged. Unchanged chronic reticular interstitial coarsening. Unchanged mild blunting of the costophrenic angles. No pneumothorax, large pleural effusion, airspace consolidation or overt pulmonary edema. Degenerative changes of the shoulders and spine. IMPRESSION: 1. No acute process. 2. Cardiomegaly with chronic interstitial coarsening. ACT 112: Negative or not required by law. The above report was generated using voice recognition software. It may contain grammatical, syntax or spelling errors. Electronically signed by: Bay Avalos M.D. 12/11/2021 5:[address] 12/11/21 17:07 CT head/brain wo con CLINICAL HISTORY: 81 years-old Male with weakness. Acute weakness TECHNIQUE: Multiple axial CT images of the head were obtained without contrast. A dose lowering technique was utilized adhering to the principles of ALARA. CT DOSE: 614.27 mGy.cm COMPARISON: Head CT 10/04/2019 FINDINGS: No acute intracranial hemorrhage, midline shift, intracranial mass, hydrocephalus, territorial ischemia or abnormal extra-axial collection. Age- related involutional changes. White matter hypodensities suggest chronic microvascular ischemic disease. Cerebral vascular calcifications. The calvarium is intact. Trace right mastoid effusion. Minimal mucosal thickening of the paranasal sinuses. Unremarkable soft tissues. Prior bilateral lens repair. IMPRESSION: No acute intracranial abnormality. ACT 112: Negative or not required by law. The above report was generated using voice recognition software. It may contain grammatical, syntax or spelling errors. Electronically signed by: Bay Avalos M.D. 12/11/2021 7:03 PM Discharge Plan Visit Data Chief Complaint: Weakness ED Provider: Kyle Islas Discharge Problem: COVID-19, Generalized weakness, Acute hyponatremia, Diabetes mellitus, type II Forms Stand Alone Forms: [facility] [email or web address] Prescriptions Prescriptions: No Action atorvastatin 40 mg tablet 40 mg PO QAM RF: 0 metformin 500 mg tablet 500 mg PO BIDM RF: 0 nitroglycerin 0.4 mg tablet, sublingual 0.4 mg sublingual DIRECTED PRN (Reason: Chest Pain) RF: 0 metoprolol succinate 25 mg tablet extended release 24 hr 25 mg PO QAM RF: 0 aspirin 81 mg Tablet,Chewable 81 mg PO DAILY RF: 0 Referrals Referrals: Poncho Dillon MD [Primary Care Provider] -
[2021-12-11] MEDS ORDERED: SODIUM CHLORIDE 0.9% 1000ML 1,000 ML IV SCH (17:15)
[2021-12-11 17:27] LABS: Basophils # (auto) 0.02 K/uL (0-0.2); Basophils % (auto) 0.2 %; Eosinophils # (auto) 0.04 K/uL (0-0.5); Eosinophils % (auto) 0.5 %; Hematocrit (blood only) 42.9 % (42-52); Hemoglobin 14.3 g/dL (14.0-18.0); Immature Granulocytes # (auto) 0.01 K/uL (0.00-0.02); Immature Granulocytes % (auto) 0.1 %; Lymphocytes # (auto) 0.74 K/uL (1.2-3.4); Lymphocytes % (auto) 8.9 %; Mean Corpuscular Hemoglobin 31.8 pg (25-34); Mean Corpuscular Hgb Conc 33.3 g/dL (32-36); Mean Corpuscular Volume 95.3 fL (80-100); Mean Platelet Volume 9.7 fL (7.4-10.4); Monocytes # (auto) 0.87 K/uL (0.11-0.59); Monocytes % (auto) 10.4 %; Neutrophils # (auto) 6.65 K/uL (1.4-6.5); Neutrophils % (auto) 79.9 %; Platelet Count 130 K/uL (130-400); RDW Coefficient of Variation 13.9 % (11.5-14.5); RDW Standard Deviation 49.2 fL (36.4-46.3); White Blood Count 8.33 K/uL (4.8-10.8)
[2021-12-11 17:58] LABS: Anion Gap 7 (3-11); Bilirubin,Total 0.9 mg/dl (0.2-1.0); Calcium 9.1 mg/dl (8.5-10.1); Carbon Dioxide 27 mmol/L (21-32); Chloride 101 mmol/L (98-107); Magnesium 1.6 mg/dl (1.7-2.4); Potassium 4.4 mmol/L (3.5-5.1); Sodium 135 mmol/L (136-145)
--- NOTE | 2021-12-11 17:59 | XRay Report ---
XR chest 1V portable HISTORY: 81 years-old Male weakness acute weakness COMPARISON: Chest radiograph 10/04/2019 TECHNIQUE: Portable AP view of the chest FINDINGS: Cardiac silhouette is enlarged. Unchanged chronic reticular interstitial coarsening. Unchanged mild b lunting of the costophrenic angles. No pneumothorax, large pleural effusion, airspace consolidation o r overt pulmonary edema. Degenerative changes of the shoulders and spine. IMPRESSION: 1. No acute process. 2. Cardiomegaly with chronic interstitial coarsening. ACT 112: Negative or not required by law. The above report was generated using voice recognition software. It may contain grammatical, syntax o r spelling errors. Electronically signed by: Bay Avalos M.D. 12/11/2021 5:58 PM
[2021-12-11 18:01] LABS: Influenza A virus by PCR Negative (Negative); Influenza B virus by PCR Negative (Negative)
[2021-12-11 18:04] LABS: Albumin Globulin Ratio 1.3 (0.9-2); Aspartate Aminotransferase 16 U/L (13-39); Blood Urea Nitrogen 15 mg/dl (6-23); Creatinine Clr Calc Pharmacy 55.7 ml/min; Glucose 99 mg/dl (70-99)
[2021-12-11 18:12] LABS: Alanine Aminotransferase 15 U/L (7-52); Alkaline Phosphatase 65 U/L (34-104); BUN Creatinine Ratio 13.6 (10-20); Est GFR (African American) 73.6 ml/min; Est GFR (Non-African American) 63.5 ml/min
[2021-12-11 18:13] LABS: Troponin I < 0.03 ng/ml (0-0.04)
--- NOTE | 2021-12-11 19:04 | CT Scan Report ---
CT head/brain wo con CLINICAL HISTORY: 81 years-old Male with weakness. Acute weakness TECHNIQUE: Multiple axial CT images of the head were obtained without contrast. A dose lowering tech nique was utilized adhering to the principles of ALARA. CT DOSE: 614.27 mGy.cm COMPARISON: Head CT 10/04/2019 FINDINGS: No acute intracranial hemorrhage, midline shift, intracranial mass, hydrocephalus, territorial ischem ia or abnormal extra-axial collection. Age-related involutional changes. White matter hypodensities s uggest chronic microvascular ischemic disease. Cerebral vascular calcifications. The calvarium is intact. Trace right mastoid effusion. Minimal mucosal thickening of the paranasal s inuses. Unremarkable soft tissues. Prior bilateral lens repair. IMPRESSION: No acute intracranial abnormality. ACT 112: Negative or not required by law. The above report was generated using voice recognition software. It may contain grammatical, syntax o r spelling errors. Electronically signed by: Bay Avalos M.D. 12/11/2021 7:03 PM
[2021-12-11] MEDS ORDERED: MAGNESIUM SULFATE / D5W 1 GM/100 ML BAG IV STA (23:02)
--- NOTE | 2021-12-11 23:14 | History & Physical Report ---
Date of Service December 11, 2021 Assessment & Plan (1) Hypotension: Plan: In the setting of generalized weakness secondary to COVID-19 infection Patient nontoxic. Patient currently without respiratory symptoms. hx CAD status post stent hx PVD/ AAA status post surgery hyperlipidemia on statin Rx hx COPD as per records, past tobacco abuse DM 2 on oral medications, well-controlled as of recent hemoglobin A1c of 6.30 June 2021 bladder cancer status post surgery chronic thrombocytopenia OBS Medical telemetry IVF Hold antihypertensives for now, resume once BP stable Supportive management for viral illness Basal insulin, ISS BG goal 1 10-1 40, carb count coverage, update hemoglobin A1c DVT prophylaxis. SCDs Re: Thrombocytopenia Full code Text document was generated using [employer] voice recognition software. It may contain grammatical or spelling errors. Kindly contact undersigned for clarification of any documentation item in question. History of Present Illness Chief Complaint: Generalized weakness Primary Care Provider: Poncho Dillon MD History obtained from patient and records. Medical history significant for CAD status post stent, PVD, AAA status post surgery, hypertension hyperlipidemia, COPD, DM 2 on oral medications, bladder cancer status post surgery, chronic thrombocytopenia, past tobacco abuse. Last confinement September 2019 for fever, unclear etiology. This morning, patient woke up feeling ill. Appetite okay. Generalized weakness without chest pain, cough, shortness of breath. Completed COVID-19 vaccination. No known recent sick contacts. Patient brought to the ER for evaluation. SBP 90s at one point at the ER. Medical History as above Surgical History : Circumcision, cystoscopy, bladder tumor removal, vasectomy, AAA repair Family History : AAA, DM, heart disease Personal/Social history : Past tobacco abuse, occasional EtOH intake, retired trash truck driver Allergies Allergy/AdvReac Type Severity Reaction Status Date / Time No Known Allergies Allergy Verified 12/11/21 18:02 Home Medications Medication Instructions Recorded Confirmed Type aspirin 81 mg chewable tablet 81 mg PO DAILY 10/04/19 12/11/21 History atorvastatin 40 mg tablet 40 mg PO QAM 10/04/19 12/11/21 History metformin 500 mg tablet 500 mg PO BIDM 10/04/19 12/11/21 History metoprolol succinate 25 mg 25 mg PO QAM 10/04/19 12/11/21 History tablet,extended release 24 hr nitroglycerin 0.4 mg sublingual 0.4 mg SUBLINGUAL DIRECTED PRN 11/05/19 01/12/22 History tablet Past Med/Surg History Medical History (Updated 12/12/21 @ 03:31 by Tiago Bolaños MD) Coronary artery disease Diabetes mellitus, type II Dyslipidemia HTN (hypertension) Surgical History History of cardiac cath 03/2018 - [facility] to RCA No pertinent past surgical history S/P AAA repair Family History Other Cancer Diabetes Heart disease Hypertension Social History Smoking Status: Former smoker Tobacco Type: Cigarettes and Cigars Cigarettes Per Day: less than pack; Second Hand Exposure: No; Hx Alcohol Use: No Hx Substance Use: No Preferred Language: Irish Communication Ability: Effective Cover Making Machine Operator Required: No Beliefs That Will Affect Care: None Current Living Situation: Spouse Other Information That Helps Us Care for You: No Feels Safe at Home: Yes Assistive Devices: None Review of Systems Review of Systems: As per HPI, all 10 systems reviewed, all other ROS negative Physical Exam Physical Exam: GENERAL: Comfortable, pleasant, no respiratory distress SKIN: Normal color, warm HEENT: Partial alopecia, [place] palpebral conjunctivae, no ptosis, dry buccal mucosa NECK : Supple, no tenderness CHEST : CTA, no tenderness HEART : RRR, no obvious murmurs ABDOMEN: Some distention, nontender EXTREMITIES : No LE swelling/tenderness, no other conspicuous deformities noted NEUROLOGIC : Coherent, no facial asymmetry, no other gross focality Results & Data Results & Data ([facility]) Vital Signs (Past 12 Hours) Vital Signs Temp Pulse Pulse Resp BP BP Pulse Ox 12/11/21 22:00 82 28 H 93/58 L 95 12/11/21 21:00 80 30 H 108/52 L 97 12/11/21 20:49 87 28 H 133/50 L 95 12/11/21 19:00 82 34 H 125/66 96 12/11/21 17:11 94 12/11/21 16:59 37.4 C 78 95 H 27 H 125/63 125/63 94 Laboratory Results Laboratory Results WBC 8.33 K/uL (4.8-10.8) 12/11/21 17:15 RBC 4.50 M/uL (4.7-6.1) L 12/11/21 17:15 Hgb 14.3 g/dL (14.0-18.0) 12/11/21 17:15 Hct 42.9 % (42-52) 12/11/21 17:15 MCV 95.3 fL (80-100) 12/11/21 17:15 MCH 31.8 pg (25-34) 12/11/21 17:15 MCHC 33.3 g/dL (32-36) 12/11/21 17:15 RDW Std Deviation 49.2 fL (36.4-46.3) H 12/11/21 17:15 RDW Coeff of Edilberto 13.9 % (11.5-14.5) 12/11/21 17:15 Plt Count 130 K/uL (130-400) 12/11/21 17:15 MPV 9.7 fL (7.4-10.4) 12/11/21 17:15 Immature Gran % (Auto) 0.1 % 12/11/21 17:15 Neut % (Auto) 79.9 % 12/11/21 17:15 Lymph % (Auto) 8.9 % 12/11/21 17:15 [place] % (Auto) 10.4 % 12/11/21 17:15 Eos % (Auto) 0.5 % 12/11/21 17:15 Baso % (Auto) 0.2 % 12/11/21 17:15 Neut # (Auto) 6.65 K/uL (1.4-6.5) H 12/11/21 17:15 Lymph # (Auto) 0.74 K/uL (1.2-3.4) L 12/11/21 17:15 [place] # (Auto) 0.87 K/uL (0.11-0.59) H 12/11/21 17:15 Eos # (Auto) 0.04 K/uL (0-0.5) 12/11/21 17:15 Baso # (Auto) 0.02 K/uL (0-0.2) 12/11/21 17:15 Immature Gran # (Auto) 0.01 K/uL (0.00-0.02) 12/11/21 17:15 Sodium 135 mmol/L (136-145) L 12/11/21 17:15 Potassium 4.4 mmol/L (3.5-5.1) 12/11/21 17:15 Chloride 101 mmol/L (98-107) 12/11/21 17:15 Carbon Dioxide 27 mmol/L (21-32) 12/11/21 17:15 Anion Gap 7 (3-11) 12/11/21 17:15 BUN 15 mg/dl (6-23) 12/11/21 17:15 Creatinine 1.10 mg/dl (0.6-1.4) 12/11/21 17:15 Est Cr Clr Drug Dosing 55.7 ml/min 12/11/21 17:15 Est GFR ( Amer) 73.6 ml/min 12/11/21 17:15 Est GFR (Non-Af Amer) 63.5 ml/min 12/11/21 17:15 BUN/Creatinine Ratio 13.6 (10-20) 12/11/21 17:15 Glucose 99 mg/dl (70-99) 12/11/21 17:15 Calcium 9.1 mg/dl (8.5-10.1) 12/11/21 17:15 Magnesium 1.6 mg/dl (1.7-2.4) L 12/11/21 17:15 Total Bilirubin 0.9 mg/dl (0.2-1.0) 12/11/21 17:15 AST 16 U/L (13-39) 12/11/21 17:15 ALT 15 U/L (7-52) 12/11/21 17:15 Alkaline Phosphatase 65 U/L (34-104) 12/11/21 17:15 Troponin I < 0.03 ng/ml (0-0.04) 12/11/21 17:15 Total Protein 7.0 gm/dl (6.0-8.3) 12/11/21 17:15 Albumin 4.0 gm/dl (3.4-5.0) 12/11/21 17:15 Globulin 3.0 gm/dl (2.5-4.0) 12/11/21 17:15 Albumin/Globulin Ratio 1.3 (0.9-2) 12/11/21 17:15 TSH 0.809 uIu/ml (0.300-4.500) 12/11/21 17:15 Influ A Molecular Assay Negative (Negative) 12/11/21 17:35 Influ B Molecular Assay Negative (Negative) 12/11/21 17:35 SARS-CoV-2, RNA, NAAT POSITIVE (NEGATIVE) A* 12/11/21 17:35 Impressions Chest X-Ray 12/11/21 17:07 XR chest 1V portable HISTORY: 81 years-old Male weakness acute weakness COMPARISON: Chest radiograph 10/04/2019 TECHNIQUE: Portable AP view of the chest FINDINGS: Cardiac silhouette is enlarged. Unchanged chronic reticular interstitial coarsening. Unchanged mild blunting of the costophrenic angles. No pneumothorax, large pleural effusion, airspace consolidation or overt pulmonary edema. Degenerative changes of the shoulders and spine. IMPRESSION: 1. No acute process. 2. Cardiomegaly with chronic interstitial coarsening. ACT 112: Negative or not required by law. The above report was generated using voice recognition software. It may contain grammatical, syntax or spelling errors. Electronically signed by: Bay Avalos M.D. 12/11/2021 5:[address] 12/11/21 17:07 CT head/brain wo con CLINICAL HISTORY: 81 years-old Male with weakness. Acute weakness TECHNIQUE: Multiple axial CT images of the head were obtained without contrast. A dose lowering technique was utilized adhering to the principles of ALARA. CT DOSE: 614.27 mGy.cm COMPARISON: Head CT 10/04/2019 FINDINGS: No acute intracranial hemorrhage, midline shift, intracranial mass, hydrocephalus, territorial ischemia or abnormal extra-axial collection. Age- related involutional changes. White matter hypodensities suggest chronic microvascular ischemic disease. Cerebral vascular calcifications. The calvarium is intact. Trace right mastoid effusion. Minimal mucosal thickening of the paranasal sinuses. Unremarkable soft tissues. Prior bilateral lens repair. IMPRESSION: No acute intracranial abnormality. ACT 112: Negative or not required by law. The above report was generated using voice recognition software. It may contain grammatical, syntax or spelling errors. Electronically signed by: Bay Avalos M.D. 12/11/2021 7:03 PM Diagnostic Findings EKG as per my interpretation: Rate 75, NSR, normal axis, incomplete RBBB, low voltage, PVCs
[2021-12-12] MEDS ORDERED: SODIUM CHLORIDE 0.9% 1000ML 1,000 ML IV STA (00:22)
[2021-12-12] MEDS ORDERED: ACETAMINOPHEN 325 MG TAB PO PRN (01:10)
[2021-12-12] MEDS ORDERED: PROMETHAZINE HCL 12.5 MG in SODIUM CHLORIDE 0.9% 50 ML IV PRN (01:10)
[2021-12-12 01:49] LABS: Appearance Urine Clear (Clear); Bacteria Urine Automated Negative (Negative); Bilirubin Urine Negative (Negative); Blood Urine 2+ (Negative); Color Urine Yellow; Epithelial Cell Urine Auto 0-5 /lpf (0-5); Glucose Urine UA Negative (Negative); Ketones Urine Negative (Negative); Leukocyte Esterase Urine Negative (Negative); Nitrite Urine Negative (Negative); Protein Urine Trace (Negative); Specific Gravity Urine 1.009 (1.000-1.030); Urobilinogen Urine Negative (Negative); WBC Urine Automated 0 /hpf (0-5); pH Urine 5.5 (4.5-7.5)
[2021-12-12] MEDS ORDERED: GLUCOSE 40% GEL 15 GM TUBE PO PRN (03:20)
[2021-12-12] MEDS ORDERED: GLUCAGON FOR INJ 1 MG VIAL SQ PRN (03:20)
[2021-12-12] MEDS ORDERED: DEXTROSE 50% 50 ML SYRINGE IV PRN (03:20)
[2021-12-12] MEDS ORDERED: GLUCOSE 10 TABS/TUBE PO PRN (03:20)
[2021-12-12] MEDS ORDERED: CARBOHYDRATES FOR HYPOGLYCEMIA PO PRN (03:20)
[2021-12-12 07:34] LABS: Basophils # (auto) 0.01 K/uL (0-0.2); Basophils % (auto) 0.2 %; Eosinophils # (auto) 0.01 K/uL (0-0.5); Eosinophils % (auto) 0.2 %; Hematocrit (blood only) 41.6 % (42-52); Hemoglobin 13.7 g/dL (14.0-18.0); Immature Granulocytes # (auto) 0.01 K/uL (0.00-0.02); Immature Granulocytes % (auto) 0.2 %; Lymphocytes # (auto) 1.43 K/uL (1.2-3.4); Lymphocytes % (auto) 24.4 %; Mean Corpuscular Hemoglobin 31.2 pg (25-34); Mean Corpuscular Hgb Conc 32.9 g/dL (32-36); Mean Corpuscular Volume 94.8 fL (80-100); Mean Platelet Volume 10.3 fL (7.4-10.4); Monocytes # (auto) 0.73 K/uL (0.11-0.59); Monocytes % (auto) 12.5 %; Neutrophils # (auto) 3.67 K/uL (1.4-6.5); Neutrophils % (auto) 62.5 %; Platelet Count 116 K/uL (130-400); RDW Standard Deviation 48.9 fL (36.4-46.3); Red Blood Count 4.39 M/uL (4.7-6.1); White Blood Count 5.86 K/uL (4.8-10.8)
[2021-12-12] MEDS: ASPIRIN 81 MG ECTAB PO SCH (08:00)
[2021-12-12] MEDS: METOPROLOL SUCC 25MG EXT REL TAB PO SCH (08:00)
[2021-12-12] MEDS: ATORVASTATIN 40 MG TAB PO SCH (08:00)
[2021-12-12 08:05] LABS: Calcium 8.4 mg/dl (8.5-10.1); Creatinine Clr Calc Pharmacy 62.7 ml/min; Est GFR (Non-African American) 76.8 ml/min; Magnesium 1.8 mg/dl (1.7-2.4)
[2021-12-12] MEDS: INSULIN ASPART PER UNIT SC SCH ×4 (08:35→20:06)
[2021-12-12 09:36] LABS: Estimated Average Glucose 137 mg/dl; Hemoglobin A1C 6.4 % (4.5-5.6)
--- NOTE | 2021-12-12 12:32 | Hospitalist Progress Note ---
Date of Service December 12, 2021 Assessment & Plan (1) Hypotension: (2) COVID-19: (3) Diabetes mellitus, type II: Plan: 81-year-old male with PMH of CAD s/p stent x1, PVD, AAA s/p Sx, HTN, HLD, COPD, DM 2 on oral meds, bladder cancer s/p Sx, chronic thrombocytopenia, past tobacco abuse presented 12/11 to [facility] with complaint of feeling ill and generalized weakness from the morning of the day of arrival. Patient reports, he was in the bathroom and he felt weak and slowly sat himself down and was unable to get himself up. Patient denied any chest pain/palpitation/cough/shortness of breath. He is being managed for the following: #. Hypotension #. Weakness Likely in the setting of generalized weakness secondary to COVID-19 infection, patient nontoxic, no respiratory symptoms currently. Blood pressure running on the lower side initially at presentation blood pressure getting better, cautiously c/w with home metoprolol Patient reports feeling weak and unable to get up on the day of her arrival, PT/OT eval Will get orthostatic vitals, follow-up on that #. COVID-19 Patient vaccinated against COVID virus, no recent sick contact, no current respiratory signs and symptoms or diarrhea Patient reports cough at his baseline. Patient on room air, no need for treatment as of now. Continue to monitor. #. Other chronic medical conditions: CAD s/p stent x1, PVD/AAA s/p Sx, HTN, HLD, chronic thrombocytopenia, bladder cancer s/p Sx Resume/continue home meds when and as appropriate #. DM2 on oral meds A1c of 6.30 June 2021, A1C 6.4 this admission, well controlled Pt on sliding scale c/w med/tele OBS likely DC wilfredo, PT/OT eval, CM to assist with DC planning. DVT prophylaxis: Hep SQ, h/o thrombocytopenia, currently plt >100K, closely monitor while on heparin. Full code Admission and Anticipated Discharge Date Admission Date: December 11, 2021 Subjective Patient was lying in bed, on room air, NAD, no new acute events overnight. Patient was given food this morning and reports that he is eating well. Patient denies any fever/headache/dizziness/chest pain/palpitations/other review of symptoms. Physical Exam Physical Exam: GENERAL: Alert and oriented x3. NAD, on RA. HEENT: No pallor, no icterus. Pupils equal, round and reactive to light. Oral mucosa moist. NECK: No JVD, no neck masses. HEART: S1 and S2 heard. Regular rate and rhythm. No murmur, no gallop. RESPIRATORY SYSTEM: Normal AP diameter. No accessory muscle use. No wheezing, no crackles. ABDOMEN: Soft, bowel sounds present, nontender, no distention. CENTRAL NERVOUS SYSTEM: No facial droop. Speech is clear. Obeys simple commands. Moves extremities. EXTREMITIES: No edema, no erythema seen. Results & Data Results & Data ([facility]) Vital Signs (Past 12 Hours) Vital Signs Temp Pulse Pulse Pulse Resp BP Pulse Ox 12/12/21 07:41 36.8 C 59 L 20 114/65 93 12/12/21 03:31 37.1 C 68 20 110/67 93 12/12/21 01:32 85 12/12/21 01:26 37 C 55 L 20 130/75 93 12/12/21 01:10 37 C 55 L 20 130/75 93 12/12/21 00:38 71 28 H 112/50 L 97 Pulse Ox 12/12/21 07:41 12/12/21 03:31 12/12/21 01:32 12/12/21 01:26 12/12/21 01:10 93 12/12/21 00:38
--- NOTE | 2021-12-12 18:17 | Electrocardiogram Report ---
Test Reason : Blood Pressure : / mmHG Vent. Rate : 075 BPM Atrial Rate : 075 BPM P-R Int : 170 ms QRS Dur : 116 ms QT Int : 376 ms P-R-T Axes : 047 016 011 degrees QTc Int : 419 ms Sinus rhythm with occasional Premature ventricular complexes Right bundle branch block Abnormal ECG When compared with ECG of 04-OCT-2019 16:27, No significant change was found Confirmed by Nnamdi Fernandez ([id number]) on 12/12/2021 6:16:57 PM Referred By: REFERRED SELF Confirmed By:Nnamdi Fernandez
[2021-12-12] MEDS: HEPARIN SOD 5,000 UNIT/0.5 ML VIAL SQ SCH (20:37)
[2021-12-12] MEDS: guaiFENesin SUGAR FREE 200 MG/10 ML UDC PO PRN (21:38)
[2021-12-13 06:23] LABS: Hematocrit (blood only) 40.6 % (42-52); Hemoglobin 13.7 g/dL (14.0-18.0); Mean Corpuscular Hemoglobin 31.5 pg (25-34); Mean Corpuscular Hgb Conc 33.7 g/dL (32-36); Mean Corpuscular Volume 93.3 fL (80-100); Mean Platelet Volume 10.2 fL (7.4-10.4); Platelet Count 119 K/uL (130-400); RDW Standard Deviation 47.9 fL (36.4-46.3); Red Blood Count 4.35 M/uL (4.7-6.1); White Blood Count 6.94 K/uL (4.8-10.8)
[2021-12-13 06:47] LABS: BUN Creatinine Ratio 18.6 (10-20); Calcium 8.4 mg/dl (8.5-10.1); Creatinine Clr Calc Pharmacy 60.7 ml/min; Est GFR (African American) 85.7 ml/min; Est GFR (Non-African American) 73.9 ml/min; Magnesium 1.7 mg/dl (1.7-2.4); Potassium 3.8 mmol/L (3.5-5.1)
[2021-12-13] MEDS: METOPROLOL SUCC 25MG EXT REL TAB PO SCH (09:36)
[2021-12-13] MEDS: guaiFENesin SUGAR FREE 200 MG/10 ML UDC PO PRN (09:36)
[2021-12-13] MEDS: ASPIRIN 81 MG ECTAB PO SCH (09:36)
[2021-12-13] MEDS: ATORVASTATIN 40 MG TAB PO SCH (09:36)
[2021-12-13] MEDS: HEPARIN SOD 5,000 UNIT/0.5 ML VIAL SQ SCH (09:39)
[2021-12-13] MEDS: INSULIN ASPART PER UNIT SC SCH (09:42)
[2021-12-13] MEDS ORDERED: MAGNESIUM OXIDE 400 MG TAB PO SCH (10:00)
--- NOTE | 2021-12-13 10:06 | Discharge Summary ---
Date of Service December 13, 2021 Admission HPI Per Admitting Provider History obtained from patient and records. Medical history significant for CAD status post stent, PVD, AAA status post surgery, hypertension hyperlipidemia, COPD, DM 2 on oral medications, bladder cancer status post surgery, chronic thrombocytopenia, past tobacco abuse. Last confinement September 2019 for fever, unclear etiology. This morning, patient woke up feeling ill. Appetite okay. Generalized weakness without chest pain, cough, shortness of breath. Completed COVID-19 vaccination. No known recent sick contacts. Patient brought to the ER for evaluation. SBP 90s at one point at the ER. Medical History as above Surgical History : Circumcision, cystoscopy, bladder tumor removal, vasectomy, AAA repair Family History : AAA, DM, heart disease Personal/Social history : Past tobacco abuse, occasional EtOH intake, retired truck sales representative Admission Exam Per Admitting Provider GENERAL: Comfortable, pleasant, no respiratory distress SKIN: Normal color, warm HEENT: Partial alopecia, [place] palpebral conjunctivae, no ptosis, dry buccal mucosa NECK : Supple, no tenderness CHEST : CTA, no tenderness HEART : RRR, no obvious murmurs ABDOMEN: Some distention, nontender EXTREMITIES : No LE swelling/tenderness, no other conspicuous deformities noted NEUROLOGIC : Coherent, no facial asymmetry, no other gross focality Principal Diagnosis Asymptomatic COVID-19 Hypotension Discharge Exam GENERAL: Alert and oriented x3. NAD, on RA. Dressed up to go home. HEENT: No pallor, no icterus. Pupils equal, round and reactive to light. Oral mucosa moist. NECK: No JVD, no neck masses. HEART: S1 and S2 heard. Regular rate and rhythm. No murmur, no gallop. RESPIRATORY SYSTEM: Normal AP diameter. No accessory muscle use. No wheezing, no crackles. Dry cough at baseline (reports it is his baseline) ABDOMEN: Soft, bowel sounds present, nontender, no distention. CENTRAL NERVOUS SYSTEM: No facial droop. Speech is clear. Obeys simple commands. Moves extremities. EXTREMITIES: No edema, no erythema seen. Discharge Data Allergies Allergy/AdvReac Type Severity Reaction Status Date / Time No Known Allergies Allergy Verified 12/11/21 18:02 Consultations 12/11/21 19:54 ED Decision to Admit Stat Ordered Studies 12/11/21 17:07 CT head/brain wo con Stat Hospital Course (1) Hypotension: (2) COVID-19: (3) Diabetes mellitus, type II: 81-year-old male with PMH of CAD s/p stent x1, PVD, AAA s/p Sx, HTN, HLD, COPD, DM 2 on oral meds, bladder cancer s/p Sx, chronic thrombocytopenia, past tobacco abuse presented 12/11 to [facility] with complaint of feeling ill and generalized weakness from the morning of the day of arrival. Patient reports, he was in the bathroom and he felt weak and slowly sat himself down and was unable to get himself up. Patient denied any chest pain/palpitation/cough/shortness of breath. He was managed for the following: #. Hypotension #. Weakness Likely in the setting of generalized weakness secondary to COVID-19 infection, patient nontoxic, no respiratory symptoms currently. Blood pressure running on the lower side initially at presentation. Orthostatics were negative. BP got better with home meds resumed. PT cleared him for home return Pt feeling better, back to his baseline #. COVID-19 Patient vaccinated against COVID virus (twice), no recent sick contact, no current respiratory signs and symptoms or diarrhea. Patient reports cough at his baseline. Patient on room air, no need for treatment as of now. Pt having dry cough at baseline (reports it is his baseline) and has some runny nose. Pt insistent on going home. Pt maked aware if he has worsening SOB/cough/malaise/chest pain/diarrhea/weakness to contact emergency or PCP immediately. Pt to maintain self isolation for total of 10 days from date of diagnosis. #. Other chronic medical conditions: CAD s/p stent x1, PVD/AAA s/p Sx, HTN, HLD, chronic thrombocytopenia, bladder cancer s/p Sx Resume/continue home meds when and as appropriate #. DM2 on oral meds A1c of 6.30 June 2021, A1C 6.4 this admission, well controlled Pt on sliding scale Full code Following instructions were communicated at the point of discharge: Follow-up with your primary care physician within 1 week time. You are diagnosed with COVID on 12/11, maintain self-isolation for 10 days from the date of diagnosis. If you have worsening cough/shortness of breath/chest pain/increasing weakness, contact your primary care physician or emergency immediately. Take medications as prescribed. Total Time Total Time Spent Total Time Spent (In Minutes): 35 Discharge Plan Discharge Items Patient Disposition: Home - Self-Care Reason For Visit: LOW BP, COVID Discharge Diagnosis: Asymptomatic COVID-19 Hypotension Activity: Resume your previous activity Non-emergency contact: Primary Care Provider Call non-emergency contact if: you have any medication questions, your symptoms worsen and your temperature is above 101 Follow-up/Referrals: Poncho Dillon MD [Primary Care Provider] - (Date & Time 12/23/2021 9:40 AM Provider Poncho Dillon MD Department [facility] ) Diet: Carb Consistent or DM2 and Heart Healthy Addtl Attending Provider Instructions: Follow-up with your primary care physician within 1 week time. You are diagnosed with COVID on 12/11, maintain self-isolation for 10 days from the date of diagnosis. If you have worsening cough/shortness of breath/chest pain/increasing weakness, contact your primary care physician or emergency immediately. Take medications as prescribed. Home Isolation COVID-19 Instructions The following information about Home Isolation is from the CDC Website: https://www.cdc.gov/coronavirus/2019-ncov/hcp/xepduqdz-edeiuyz-npcleb.html Stay home except to get medical care People who are mildly ill with COVID-19 are able to isolate at home during their illness. You should restrict activities outside your home, except for getting medical care. Do not go to work, school, or public areas. Avoid using public transportation, ride-sharing, or taxis. Separate yourself from other people and animals in your home People: As much as possible, you should stay in a specific room and away from other people in your home. Also, you should use a separate bathroom, if available. Animals: You should restrict contact with pets and other animals while you are sick with COVID-19, just like you would around other people. Although there have not been reports of pets or other animals becoming sick with COVID-19, it is still recommended that people sick with COVID-19 limit contact with animals until more information is known about the virus. When possible, have another member of your household care for your animals while you are sick. If you are sick with COVID-19, avoid contact with your pet, including petting, snuggling, being kissed or licked, and sharing food. If you must care for your pet or be around animals while you are sick, wash your hands before and after you interact with pets and wear a face mask. Call ahead before visiting your doctor If you have a medical appointment, call the healthcare provider and tell them that you have or may have COVID-19. This will help the healthcare providers office take steps to keep other people from getting infected or exposed. Wear a face mask You should wear a face mask when you are around other people (e.g., sharing a room or vehicle) or pets and before you enter a healthcare providers office. If you are not able to wear a face mask (for example, because it causes trouble breathing), then people who live with you should not stay in the same room with you, or they should wear a face mask if they enter your room. Cover your coughs and sneezes Cover your mouth and nose with a tissue when you cough or sneeze. Throw used tissues in a lined trash can. Immediately wash your hands with soap and water for at least 20 seconds or, if soap and water are not available, clean your h ands with an alcohol-based hand ambulance driver paramedic that contains at least 60% alcohol. Clean your hands often Wash your hands often with soap and water for at least 20 seconds, especially after blowing your nose, coughing, or sneezing; going to the bathroom; and before eating or preparing food. If soap and water are not readily available, use an alcohol-based hand ambulance driver paramedic with at least 60% alcohol, covering all surfaces of your hands and rubbing them together until they feel dry. Soap and water are the best option if hands are visibly dirty. Avoid touching your eyes, nose, and mouth with unwashed hands. Avoid sharing personal household items You should not share dishes, drinking glasses, cups, eating utensils, towels, or bedding with other people or pets in your home. After using these items, they should be washed thoroughly with soap and water. Clean all high-touch surfaces everyday High touch surfaces include counters, tabletops, doorknobs, bathroom fixtures, toilets, phones, keyboards, tablets, and bedside tables. Also, clean any surfaces that may have blood, stool, or body fluids on them. Use a household c leaning spray or wipe, according to the label instructions. Labels contain instructions for safe and effective use of the cleaning product including precautions you should take when applying the product, such as wearing gloves and making sure you have good ventilation during use of the product. Monitor your symptoms Seek prompt medical attention if your illness is worsening (e.g., difficulty breathing).Beforeseeking care, call your healthcare provider and tell them that you have, or are being evaluated for, COVID-19. Put on a face mask before you enter the facility. These steps will help the healthcare providers office to keep other people in the office or waiting room from getting infected or exposed. Ask your healthcare provider to call the local or state health department. Persons who are placed under active monitoring or facilitated self- monitoring should follow instructions provided by their local health department or occupational health professionals, as appropriate. When working with your local health department check their available hours. If you have a medical emergency and need to call 911, notify the dispatch personnel that you have, or are being evaluated for COVID-19. If possible, put on a face mask before emergency medical services arrive. Discontinuing home isolation Patients with confirmed COVID-19 should remain under home isolation precautions until the risk of secondary transmission to others is thought to be low. The decision to discontinue home isolation precautions should be made on a [id number] basis, in consultation with healthcare providers and [facility] and local health departments. Pending Studies at Discharge: No Stand-Alone Forms: [facility] [place], Smoking Cessation Medications and DC Order Prescriptions: New magnesium oxide 400 mg (241.3 mg magnesium) Tablet 400 mg PO QAM 7 Days Qty: 7 RF: 0 Continued atorvastatin 40 mg tablet 40 mg PO QAM RF: 0 metformin 500 mg tablet 500 mg PO BIDM RF: 0 nitroglycerin 0.4 mg tablet, sublingual 0.4 mg sublingual DIRECTED PRN (Reason: Chest Pain) RF: 0 metoprolol succinate 25 mg tablet extended release 24 hr 25 mg PO QAM RF: 0 aspirin 81 mg Tablet,Chewable 81 mg PO DAILY RF: 0 Discharge Orders: Discharge Order (Routine); Ordered 12/13/21 Ordered By: Aletha Best/Other Patient Handouts: Managing Type 2 Diabetes Admission Data Admit Date/Time: 12/11/21 23:16 Attending Provider: Aletha Darden Admit Provider: Tiago Bolaños Primary Care Provider: Poncho Dillon Other Providers: Tiago Bolaños
== END 2021-12-13 10:35 | disposition home or self-care (01) ==
LOC: ED 16:50 → 2W 16:50

== ENCOUNTER 2022-04-17 15:08 | Observation (INO) ==
[2022-04-17] MEDS ORDERED: ACETAMINOPHEN 325 MG TAB PO STA (15:51)
--- NOTE | 2022-04-17 15:58 | Emergency Department Note ---
History of Present Illness General Chief complaint: Weakness Stated complaint: WEAKNESS IN ENTIRE BODY, CANNOT CONTROL BLADDER Time Seen by Provider: 04/17/22 15:43 Source: patient History of Present Illness Provider complaint: Weakness Onset (ago): day(s) Location: head Pain Consistency: + constant Quality: + other (Generalized weakness) Relieved By: + none Associated symptoms: + fever/chills; no chest pain, no cough, no headaches, no nausea/vomiting, no rash or no shortness of breath This is a 81-year-old male who presents with generalized weakness since yesterday evening. The patient has no other symptoms other than chills. He did not have a fever but he felt warm according to his . He states that he is just feels weak all over. He has had no cough or cold symptoms, rash, tick bites, chest pain, shortness of breath, abdominal pain, vomiting, diarrhea or pain with urination. He does have chronic incontinence. He denies any headache. He has had no joint pains. Home Medications Medication Instructions Recorded Confirmed Type aspirin 81 mg chewable tablet 81 mg PO DAILY 10/04/19 04/17/22 History atorvastatin 40 mg tablet 40 mg PO QAM 10/04/19 04/17/22 History metformin 500 mg tablet 500 mg PO BIDM 10/04/19 04/17/22 History metoprolol succinate 25 mg 25 mg PO QAM 10/04/19 04/17/22 History tablet,extended release 24 hr nitroglycerin 0.4 mg sublingual 0.4 mg SUBLINGUAL DIRECTED PRN 10/04/19 04/17/22 History tablet tamsulosin 0.4 mg capsule 0.4 mg PO QAM 04/17/22 04/17/22 History Allergies Allergy/AdvReac Type Severity Reaction Status Date / Time No Known Allergies Allergy Verified 04/17/22 17:12 Past Med/Surg History Medical History (Updated 04/17/22 @ 20:20 by CHIO Worley) Coronary artery disease PCI x1 WALKER to RCA 03/2018 Diabetes mellitus, type II Dyslipidemia HTN (hypertension) Surgical History History of cardiac cath 03/2018 - WALKER to RCA No pertinent past surgical history S/P AAA repair Family History Other Cancer Diabetes Heart disease Hypertension Social History Smoking Status: Current some day smoker Tobacco Type: Cigarettes Cigarettes Per Day: less than pack; Second Hand Exposure: No; Hx Alcohol Use: No Hx Substance Use: No Preferred Language: Malay Communication Ability: Effective Medical And Health Services Manager Required: No Beliefs That Will Affect Care: None marital status: Current Living Situation: Spouse How many Children do You have: 3 Feels Safe at Home: Yes Assistive Devices: Glasses Review of Systems See HPI for pertinent positives & negatives. and A total of 10 systems reviewed and were otherwise negative Physical Exam Vital Signs Vital Signs - 24 hr 04/17/22 15:12 04/17/22 15:27 04/17/22 15:52 Temperature 37.8 C H Temperature Source Temporal Artery Scan Pulse Rate 88 81 Pulse Rate [Apical] 82 Pulse Rate from SpO2 Sensor Pulse Rhythm Regular Pulse Rhythm [Apical] Respiratory Rate 18 16 Respiratory Effort / Characteristics Non-Labored Spontaneous Non-Labored Spontaneous Respiratory Depth Normal Respiratory Pattern Regular Blood Pressure 122/67 Blood Pressure [Left Arm] 122/70 Blood Pressure Mean 85 Blood Pressure Mean [Left Arm] 87 Blood Pressure Position [Left Arm] Semi-fowlers Pulse Oximetry 98 95 Oxygen Delivery Method Room Air Room Air Sepsis Recent Fever Within 48 Hours Yes Sepsis New/Unexplained Change in Mental Status No Sepsis Action Taken by Nursing No Action Required 04/17/22 16:02 04/17/22 16:22 04/17/22 16:30 Temperature Temperature Source Pulse Rate 81 83 Pulse Rate [Apical] Pulse Rate from SpO2 Sensor 80 81 Pulse Rhythm Pulse Rhythm [Apical] Respiratory Rate 24 28 H Respiratory Effort / Characteristics Non-Labored Respiratory Depth Respiratory Pattern Blood Pressure 115/67 Blood Pressure [Left Arm] Blood Pressure Mean 83 Blood Pressure Mean [Left Arm] Blood Pressure Position [Left Arm] Pulse Oximetry 95 96 Oxygen Delivery Method Sepsis Recent Fever Within 48 Hours Sepsis New/Unexplained Change in Mental Status Sepsis Action Taken by Nursing 04/17/22 16:52 04/17/22 17:00 04/17/22 17:30 Temperature Temperature Source Pulse Rate 77 79 Pulse Rate [Apical] Pulse Rate from SpO2 Sensor 79 83 Pulse Rhythm Pulse Rhythm [Apical] Respiratory Rate 28 H 22 Respiratory Effort / Characteristics Non-Labored Non-Labored Non-Labored Spontaneous Respiratory Depth Respiratory Pattern Blood Pressure 99/59 L 109/54 L Blood Pressure [Left Arm] Blood Pressure Mean 72 72 Blood Pressure Mean [Left Arm] Blood Pressure Position [Left Arm] Pulse Oximetry 97 95 Oxygen Delivery Method Sepsis Recent Fever Within 48 Hours Sepsis New/Unexplained Change in Mental Status Sepsis Action Taken by Nursing 04/17/22 17:35 04/17/22 17:46 04/17/22 18:00 Temperature 37.0 C Temperature Source Oral Pulse Rate 80 77 Pulse Rate [Apical] Pulse Rate from SpO2 Sensor 59 L 39 L Pulse Rhythm Pulse Rhythm [Apical] Respiratory Rate 28 H 25 H Respiratory Effort / Characteristics Non-Labored Spontaneous Respiratory Depth Respiratory Pattern Blood Pressure 93/77 L 96/52 L Blood Pressure [Left Arm] Blood Pressure Mean 82 66 Blood Pressure Mean [Left Arm] Blood Pressure Position [Left Arm] Pulse Oximetry 96 96 Oxygen Delivery Method Sepsis Recent Fever Within 48 Hours Sepsis New/Unexplained Change in Mental Status Sepsis Action Taken by Nursing 04/17/22 18:19 04/17/22 18:30 04/17/22 19:00 Temperature Temperature Source Pulse Rate 68 69 71 Pulse Rate [Apical] Pulse Rate from SpO2 Sensor 67 68 Pulse Rhythm Pulse Rhythm [Apical] Respiratory Rate 24 22 19 Respiratory Effort / Characteristics Non-Labored Spontaneous Respiratory Depth Respiratory Pattern Blood Pressure 107/61 110/60 119/80 Blood Pressure [Left Arm] Blood Pressure Mean 76 76 93 Blood Pressure Mean [Left Arm] Blood Pressure Position [Left Arm] Pulse Oximetry 97 97 Oxygen Delivery Method Sepsis Recent Fever Within 48 Hours Sepsis New/Unexplained Change in Mental Status Sepsis Action Taken by Nursing 04/17/22 19:06 04/17/22 19:18 04/17/22 19:30 Temperature Temperature Source Pulse Rate 73 Pulse Rate [Apical] 69 Pulse Rate from SpO2 Sensor 66 Pulse Rhythm Pulse Rhythm [Apical] Regular Respiratory Rate 18 18 21 Respiratory Effort / Characteristics Non-Labored Non-Labored Respiratory Depth Normal Respiratory Pattern Regular Blood Pressure 100/67 Blood Pressure [Left Arm] 119/80 Blood Pressure Mean 78 Blood Pressure Mean [Left Arm] 93 Blood Pressure Position [Left Arm] Pulse Oximetry 97 98 92 Oxygen Delivery Method Room Air Room Air Sepsis Recent Fever Within 48 Hours Sepsis New/Unexplained Change in Mental Status Sepsis Action Taken by Nursing 04/17/22 20:00 04/17/22 20:30 Temperature Temperature Source Pulse Rate 63 76 Pulse Rate [Apical] Pulse Rate from SpO2 Sensor 62 40 L Pulse Rhythm Pulse Rhythm [Apical] Respiratory Rate 21 24 Respiratory Effort / Characteristics Respiratory Depth Respiratory Pattern Blood Pressure 119/62 113/60 Blood Pressure [Left Arm] Blood Pressure Mean 81 77 Blood Pressure Mean [Left Arm] Blood Pressure Position [Left Arm] Pulse Oximetry 97 97 Oxygen Delivery Method Sepsis Recent Fever Within 48 Hours Sepsis New/Unexplained Change in Mental Status Sepsis Action Taken by Nursing Constitutional: Vital signs reviewed. Eyes: Pupils are equal round reactive to light. Conjunctiva are noninjected. ENT: Pharynx is clear without erythema or exudate. Mucous membranes are moist. Neck supple without meningeal signs. Respiratory: Clear to auscultation bilaterally. Breath sounds are equal bilaterally. Cardiovascular: Regular rate and rhythm. No rubs or gallops. GI: Soft, nondistended and nontender. Bowel sounds are present. Musculoskeletal: No peripheral edema. No lower extremity tenderness. Integumentary: No cyanosis. or jaundice. Neurological: The patient is awake and alert. No focal deficits. Psychiatric: Normal affect. Not anxious appearing. Course Administered Medications Discontinued Medications Acetaminophen (Acetaminophen 325 Mg Tab) 650 mg PO NOW STA Stop: 04/17/22 15:52 Last Admin: 04/17/22 16:36 Dose: 650 mg Documented by: [id number] Sodium Chloride (Nss 1000ml) 500 mls @ 999 mls/hr IV .Q31M ONE Stop: 04/17/22 18:51 Last Infusion: 04/17/22 19:53 Dose: 0 mls/hr Documented by: [id number] Admin: 04/17/22 19:10 Dose: 999 mls/hr Documented by: [id number] Piperacillin Sod/Tazobactam Sod (Zosyn) 4.5 gm in 120 mls @ 240 mls/hr IV NOW STA Stop: 04/17/22 19:08 Last Infusion: 04/17/22 19:53 Dose: 0 mls/hr Documented by: [id number] Admin: 04/17/22 19:15 Dose: 240 mls/hr Documented by: [id number] Medical Decision Making Differential Diagnosis Sepsis, bacteremia, COVID-19, metabolic derangement, UTI, pneumonia Medical Records Attestation: I reviewed the patient's medical records. I did perform a limited focused review of portions of the patient's old chart on the electronic medical record. The patient was admitted in November for g eneralized weakness and asymptomatic COVID-19. He was also noted to have hypotension at that time. Home Medications Current Medication List: was personally reviewed by me Laboratory Data Attestation: I reviewed the patient's lab results. Result diagrams: 04/17/22 15:34 04/17/22 15:34 Lab Results 04/17/22 04/17/22 04/17/22 Range/Units 15:34 15:34 15:34 WBC 16.39 H (4.8-10.8) K/uL RBC 4.34 L (4.7-6.1) M/uL Hgb 13.8 L (14.0-18.0) g/dL Hct 41.2 L (42-52) % MCV 94.9 (80-100) fL MCH 31.8 (25-34) pg MCHC 33.5 (32-36) g/dL RDW Std Deviation 48.9 H (36.4-46.3) fL RDW Coeff of Edilberto 14.0 (11.5-14.5) % Plt Count 142 (130-400) K/uL MPV 10.1 (7.4-10.4) fL Immature Gran % (Auto) 0.4 % Neut % (Auto) 87.1 % Lymph % (Auto) 5.9 % [place] % (Auto) 6.4 % Eos % (Auto) 0.1 % Baso % (Auto) 0.1 % Neut # (Auto) 14.29 H (1.4-6.5) K/uL Lymph # (Auto) 0.96 L (1.2-3.4) K/uL [place] # (Auto) 1.05 H (0.11-0.59) K/uL Eos # (Auto) 0.01 (0-0.5) K/uL Baso # (Auto) 0.01 (0-0.2) K/uL Immature Gran # (Auto) 0.07 H (0.00-0.02) K/uL Hypersegmented Neuts Occasional PT 11.6 (9.0-12.0) Seconds INR 1.1 (0.9-1.1) APTT 28.6 (21.0-31.0) Seconds PTT Ratio 1.0 Sodium (136-145) mmol/L Potassium (3.5-5.1) mmol/L Chloride (98-107) mmol/L Carbon Dioxide (21-32) mmol/L Anion Gap (3-11) BUN (6-23) mg/dl Creatinine (0.6-1.4) mg/dl Est Cr Clr Drug Dosing ml/min Est GFR ( Amer) ml/min Est GFR (Non-Af Amer) ml/min BUN/Creatinine Ratio (10-20) Glucose (70-99(Fasting)) mg/dl Lactate (0.4-2.0) mmol/L Calcium (8.5-10.1) mg/dl Magnesium (1.7-2.4) mg/dl Total Bilirubin (0.2-1.0) mg/dl AST (13-39) U/L ALT (7-52) U/L Alkaline Phosphatase (34-104) U/L Total Protein (6.0-8.3) gm/dl Albumin (3.4-5.0) gm/dl Globulin (2.5-4.0) gm/dl Albumin/Globulin Ratio (0.9-2) Urine Color Urine Appearance (Clear) Urine pH (4.5-7.5) Ur Specific [place] (1.000-1.030) Urine Protein (Negative) Urine Glucose (UA) (Negative) Urine Ketones (Negative) Urine Blood (Negative) Urine Nitrite (Negative) Urine Bilirubin (Negative) Urine Urobilinogen (Negative) Ur Leukocyte Esterase (Negative) Urine WBC (Auto) (0-5) /hpf Urine RBC (Auto) (0-4) /hpf U Hyaline Cast (Auto) (0-5) /lpf U Epithel Cells (Auto) (0-5) /lpf Urine Bacteria (Auto) (Negative) Anaplasma Smear See Comment Lyme Disease IgG Ab Negative (Negative) Lyme Disease IgM Ab Negative (Negative) SARS-CoV-2 (PCR) (Negative) Influenza Type A (PCR) (Neg) Influenza Type B (PCR) (Neg) RSV (RT-PCR) (Neg) 04/17/22 04/17/22 04/17/22 Range/Units 15:34 16:09 17:40 WBC (4.8-10.8) K/uL RBC (4.7-6.1) M/uL Hgb (14.0-18.0) g/dL Hct (42-52) % MCV (80-100) fL MCH (25-34) pg MCHC (32-36) g/dL RDW Std Deviation (36.4-46.3) fL RDW Coeff of Edilberto (11.5-14.5) % Plt Count (130-400) K/uL MPV (7.4-10.4) fL Immature Gran % (Auto) % Neut % (Auto) % Lymph % (Auto) % [place] % (Auto) % Eos % (Auto) % Baso % (Auto) % Neut # (Auto) (1.4-6.5) K/uL Lymph # (Auto) (1.2-3.4) K/uL [place] # (Auto) (0.11-0.59) K/uL Eos # (Auto) (0-0.5) K/uL Baso # (Auto) (0-0.2) K/uL Immature Gran # (Auto) (0.00-0.02) K/uL Hypersegmented Neuts PT (9.0-12.0) Seconds INR (0.9-1.1) APTT (21.0-31.0) Seconds PTT Ratio Sodium 134 L (136-145) mmol/L Potassium 4.0 (3.5-5.1) mmol/L Chloride 101 (98-107) mmol/L Carbon Dioxide 26 (21-32) mmol/L Anion Gap 7 (3-11) BUN 19 (6-23) mg/dl Creatinine 1.28 (0.6-1.4) mg/dl Est Cr Clr Drug Dosing 47.2 ml/min Est GFR ( Amer) 61.3 ml/min Est GFR (Non-Af Amer) 52.9 ml/min BUN/Creatinine Ratio 14.8 (10-20) Glucose 132 H (70-99(Fasting)) mg/dl Lactate 0.8 (0.4-2.0) mmol/L Calcium 9.3 (8.5-10.1) mg/dl Magnesium 1.7 (1.7-2.4) mg/dl Total Bilirubin 2.3 H (0.2-1.0) mg/dl AST 14 (13-39) U/L ALT 12 (7-52) U/L Alkaline Phosphatase 62 (34-104) U/L Total Protein 7.2 (6.0-8.3) gm/dl Albumin 4.0 (3.4-5.0) gm/dl Globulin 3.2 (2.5-4.0) gm/dl Albumin/Globulin Ratio 1.3 (0.9-2) Urine Color Yellow Urine Appearance Cloudy A (Clear) Urine pH 6.0 (4.5-7.5) Ur Specific [place] 1.013 (1.000-1.030) Urine Protein 2+ H (Negative) Urine Glucose (UA) Negative (Negative) Urine Ketones Negative (Negative) Urine Blood 3+ H (Negative) Urine Nitrite Positive A (Negative) Urine Bilirubin Negative (Negative) Urine Urobilinogen Negative (Negative) Ur Leukocyte Esterase 2+ H (Negative) Urine WBC (Auto) >30 H (0-5) /hpf Urine RBC (Auto) >30 H (0-4) /hpf U Hyaline Cast (Auto) 1-5 (0-5) /lpf U Epithel Cells (Auto) >30 H (0-5) /lpf Urine Bacteria (Auto) 3+ H (Negative) Anaplasma Smear Lyme Disease IgG Ab (Negative) Lyme Disease IgM Ab (Negative) SARS-CoV-2 (PCR) (Negative) Influenza Type A (PCR) (Neg) Influenza Type B (PCR) (Neg) RSV (RT-PCR) (Neg) 04/17/22 Range/Units Unknown WBC (4.8-10.8) K/uL RBC (4.7-6.1) M/uL Hgb (14.0-18.0) g/dL Hct (42-52) % MCV (80-100) fL MCH (25-34) pg MCHC (32-36) g/dL RDW Std Deviation (36.4-46.3) fL RDW Coeff of Edilberto (11.5-14.5) % Plt Count (130-400) K/uL MPV (7.4-10.4) fL Immature Gran % (Auto) % Neut % (Auto) % Lymph % (Auto) % [place] % (Auto) % Eos % (Auto) % Baso % (Auto) % Neut # (Auto) (1.4-6.5) K/uL Lymph # (Auto) (1.2-3.4) K/uL [place] # (Auto) (0.11-0.59) K/uL Eos # (Auto) (0-0.5) K/uL Baso # (Auto) (0-0.2) K/uL Immature Gran # (Auto) (0.00-0.02) K/uL Hypersegmented Neuts PT (9.0-12.0) Seconds INR (0.9-1.1) APTT (21.0-31.0) Seconds PTT Ratio Sodium (136-145) mmol/L Potassium (3.5-5.1) mmol/L Chloride (98-107) mmol/L Carbon Dioxide (21-32) mmol/L Anion Gap (3-11) BUN (6-23) mg/dl Creatinine (0.6-1.4) mg/dl Est Cr Clr Drug Dosing ml/min Est GFR ( Amer) ml/min Est GFR (Non-Af Amer) ml/min BUN/Creatinine Ratio (10-20) Glucose (70-99(Fasting)) mg/dl Lactate (0.4-2.0) mmol/L Calcium (8.5-10.1) mg/dl Magnesium (1.7-2.4) mg/dl Total Bilirubin (0.2-1.0) mg/dl AST (13-39) U/L ALT (7-52) U/L Alkaline Phosphatase (34-104) U/L Total Protein (6.0-8.3) gm/dl Albumin (3.4-5.0) gm/dl Globulin (2.5-4.0) gm/dl Albumin/Globulin Ratio (0.9-2) Urine Color Urine Appearance (Clear) Urine pH (4.5-7.5) Ur Specific [place] (1.000-1.030) Urine Protein (Negative) Urine Glucose (UA) (Negative) Urine Ketones (Negative) Urine Blood (Negative) Urine Nitrite (Negative) Urine Bilirubin (Negative) Urine Urobilinogen (Negative) Ur Leukocyte Esterase (Negative) Urine WBC (Auto) (0-5) /hpf Urine RBC (Auto) (0-4) /hpf U Hyaline Cast (Auto) (0-5) /lpf U Epithel Cells (Auto) (0-5) /lpf Urine Bacteria (Auto) (Negative) Anaplasma Smear Lyme Disease IgG Ab (Negative) Lyme Disease IgM Ab (Negative) SARS-CoV-2 (PCR) NEGATIVE (Negative) Influenza Type A (PCR) Negative (Neg) Influenza Type B (PCR) Negative (Neg) RSV (RT-PCR) Negative (Neg) Imaging Data Radiologist's Impression: Chest X-Ray 04/17/22 15:52 XR chest 1V portable CLINICAL HISTORY: SEPSIS COMPARISON STUDY: Chest radiograph June 10, 2022. Chest CT April 26, 2018. FINDINGS: Lung volumes are normal. No pneumothorax or pleural effusion is noted. Cardiomegaly is unchanged. Interstitial thickening is unchanged. No evidence for overt pulmonary edema. No consolidation to suggest pneumonia. Appearance of the chest is unchanged. IMPRESSION: No acute cardiopulmonary findings. No change in appearance of the chest. ACT 112: Negative or not required by law. Electronically signed by: Paolo Perea M.D. 04/17/2022 4:23 PM ECG Data Attestation: I personally reviewed and interpreted this ECG as follows: Indication: + weakness Rate (beats per minute): 80 Rhythm: + normal sinus ECG Intervals/blocks: + Right Bundle branch block ECG Jackson: + Normal ECG ST segments: no ST elevation ECG Findings: no PVCs Comparison ECG Date: from (December 11, 2021) Change: no significant change MDM Narrative I did evaluate the patient as noted above. The patient is presenting with generalized weakness and chills. He is febrile here. IV access was established. I did treat the patient with Tylenol for his fever. I did place an order for continuous cardiac monitoring. The monitor showed normal sinus rhythm at a rate of 78 bpm. I did order and personally review the patient's 12-lead EKG as described above. He has no acute ischemic changesI did order and per sonally reviewed the images of the patient's chest x-ray as described above. Chest x-ray does not demonstrate any evidence of pneumonia. I did order a urine analysis. He does appear to have a UTI. Urine culture was sent. Blood cultures were also sent and the patient was started on Zosyn 4.5 g IV. I did order and review the patient's blood work as noted in the electronic medical record. His white count is significantly elevated at 16.4. Hemoglobin is 13.8 and platelet count is 142. CMP is unremarkable other than a sodium 134 and a total bilirubin 2.3. Lactic acid is not elevated. Testing for COVID, influenza, RSV, Lyme disease and anaplasmosis is negative. I did reassess the patient. His blood pressure has dropped slightly but looking at the trend in his prior blood pressures he tends to run low. I therefore only gave him a 500 mL bolus of normal saline as I did not wish to fluid overload the patient. He does have a history of cardiac disease. I did recommend hospitalization. I did discuss the case with the hospitalist and manager case. Impression & Plan Sepsis, Generalized weakness, Urinary tract infection, Elevated bilirubin, Hyponatremia Discharge Plan Visit Data Chief Complaint: Weakness Stated Complaint: WEAKNESS IN ENTIRE BODY, CANNOT CONTROL BLADDER ED Provider: Warner Joshi Discharge Problem: Sepsis, Generalized weakness, Urinary tract infection, Elevated bilirubin, Hyponatremia Patient Disposition: Being Evaluated by Hospitalist Forms Stand Alone Forms: My [facility] Prescriptions Prescriptions: No Action atorvastatin 40 mg tablet 40 mg PO QAM RF: 0 metformin 500 mg tablet 500 mg PO BIDM RF: 0 nitroglycerin 0.4 mg tablet, sublingual 0.4 mg sublingual DIRECTED PRN (Reason: Chest Pain) RF: 0 metoprolol succinate 25 mg tablet extended release 24 hr 25 mg PO QAM RF: 0 aspirin 81 mg Tablet,Chewable 81 mg PO DAILY RF: 0 tamsulosin 0.4 mg capsule 0.4 mg PO QAM RF: 0 Referrals Referrals: Poncho Dillon MD [Primary Care Provider] - Discharge Problem: Sepsis Qualifiers: Sepsis type: sepsis due to unspecified organism Sepsis acute organ dysfunction status: without acute organ dysfunction Qualified Code(s): A41.9 - Sepsis, unspecified organism Urinary tract infection Qualifiers: Urinary tract infection type: site unspecified Hematuria presence: with hematuria Qualified Code(s): N39.0 - Urinary tract infection, site not specified
[2022-04-17 16:18] LABS: Basophils # (auto) 0.01 K/uL (0-0.2); Basophils % (auto) 0.1 %; Eosinophils # (auto) 0.01 K/uL (0-0.5); Eosinophils % (auto) 0.1 %; Hematocrit (blood only) 41.2 % (42-52); Hemoglobin 13.8 g/dL (14.0-18.0); Immature Granulocytes # (auto) 0.07 K/uL (0.00-0.02); Immature Granulocytes % (auto) 0.4 %; Lymphocytes # (auto) 0.96 K/uL (1.2-3.4); Lymphocytes % (auto) 5.9 %; Mean Corpuscular Hemoglobin 31.8 pg (25-34); Mean Corpuscular Hgb Conc 33.5 g/dL (32-36); Mean Corpuscular Volume 94.9 fL (80-100); Mean Platelet Volume 10.1 fL (7.4-10.4); Monocytes # (auto) 1.05 K/uL (0.11-0.59); Monocytes % (auto) 6.4 %; Neutrophils # (auto) 14.29 K/uL (1.4-6.5); Neutrophils % (auto) 87.1 %; Platelet Count 142 K/uL (130-400); RDW Standard Deviation 48.9 fL (36.4-46.3); Red Blood Count 4.34 M/uL (4.7-6.1); White Blood Count 16.39 K/uL (4.8-10.8)
--- NOTE | 2022-04-17 16:25 | XRay Report ---
XR chest 1V portable CLINICAL HISTORY: SEPSIS COMPARISON STUDY: Chest radiograph June 10, 2022. Chest CT April 26, 2018. FINDINGS: Lung volumes are normal. No pneumothorax or pleural effusion is noted. Cardiomegaly is unch anged. Interstitial thickening is unchanged. No evidence for overt pulmonary edema. No consolidation to suggest pneumonia. Appearance of the chest is unchanged. IMPRESSION: No acute cardiopulmonary findings. No change in appearance of the chest. ACT 112: Negative or not required by law. Electronically signed by: Paolo Perea M.D. 04/17/2022 4:23 PM
[2022-04-17 16:35] LABS: Albumin Globulin Ratio 1.3 (0.9-2); BUN Creatinine Ratio 14.8 (10-20); Bilirubin,Total 2.3 mg/dl (0.2-1.0); Calcium 9.3 mg/dl (8.5-10.1); Creatinine Clr Calc Pharmacy 47.2 ml/min; Est GFR (African American) 61.3 ml/min; Est GFR (Non-African American) 52.9 ml/min; Globulin 3.2 gm/dl (2.5-4.0); Magnesium 1.7 mg/dl (1.7-2.4); Total Protein 7.2 gm/dl (6.0-8.3)
[2022-04-17 16:36] LABS: INR 1.1 (0.9-1.1); Partial Thromboplastin Time 28.6 Seconds (21.0-31.0); Prothrombin Time 11.6 Seconds (9.0-12.0)
[2022-04-17 16:58] LABS: Influenza A virus by PCR Negative (Neg); Influenza B virus by PCR Negative (Neg); RSV by PCR Negative (Neg); SARS CoV2 RNA(COVID-19) InHosp NEGATIVE (Negative)
[2022-04-17 17:05] LABS: Lyme Ab IgG w/WB Rflx Negative (Negative); Lyme Ab IgM w/WB Rflx Negative (Negative)
[2022-04-17 18:03] LABS: Appearance Urine Cloudy (Clear); Bacteria Urine Automated 3+ (Negative); Bilirubin Urine Negative (Negative); Blood Urine 3+ (Negative); Color Urine Yellow; Epithelial Cell Urine Auto >30 /lpf (0-5); Glucose Urine UA Negative (Negative); Ketones Urine Negative (Negative); Leukocyte Esterase Urine 2+ (Negative); Nitrite Urine Positive (Negative); Protein Urine 2+ (Negative); RBC Urine Automated >30 /hpf (0-4); Specific Gravity Urine 1.013 (1.000-1.030); Urobilinogen Urine Negative (Negative); WBC Urine Automated >30 /hpf (0-5)
[2022-04-17] MEDS ORDERED: PIPERACILLIN/TAZOBACTAM 4.5 GM in DEXTROSE 5% 100 ML IV STA (18:20)
[2022-04-17] MEDS ORDERED: PIPERACILL/TAZOBAC CONSULT ACTIVE PRN (18:20)
[2022-04-17] MEDS ORDERED: SODIUM CHLORIDE 0.9% 1000ML 500 ML IV ONE (18:21)
[2022-04-17] MEDS ORDERED: PIPERACILLIN/TAZOBACTAM 4.5 GM/120 ML BAG IV STA (18:39)
[2022-04-17] MEDS ORDERED: GLUCAGON FOR INJ 1 MG VIAL SQ PRN (21:10)
[2022-04-17] MEDS ORDERED: ACETAMINOPHEN 325 MG TAB PO PRN (21:10)
[2022-04-17] MEDS ORDERED: CARBOHYDRATES FOR HYPOGLYCEMIA PO PRN (21:10)
[2022-04-17] MEDS ORDERED: GLUCOSE 40% GEL 15 GM TUBE PO PRN (21:10)
[2022-04-17] MEDS ORDERED: DEXTROSE 50% 50 ML SYRINGE IV PRN (21:10)
[2022-04-17] MEDS ORDERED: GLUCOSE 10 TABS/TUBE PO PRN (21:10)
--- NOTE | 2022-04-17 21:52 | History & Physical Report ---
Date of Service April 17, 2022 Assessment & Plan (1) Urinary tract infection: (2) Generalized weakness: Plan: Admit to [facility] with telemetry Patient presenting from home with reports of generalized weakness In the ED, WBC 16 K, UA suggestive of UTI. Low-grade fever, otherwise hemodynamically stable and does not appear septic. S/p IV Zosyn in the ED. Previous cultures reviewed, no growth noted. Will continue with IV ceftriaxone Noted history of urethral stricture and patient self calibrates weekly via catheter Follow urine culture PT/OT eval's due to generalized weakness (3) Bigeminy: Plan: Bigeminy noted on criminal analyst, asymptomatic Electrolytes acceptable Continue to monitor on telemetry (4) Elevated bilirubin: Plan: T bili 2.3 No abdominal complaints Follow LFTs in a.m. (5) Coronary artery disease: Plan: Appears stable, no reports of chest pain Continue ASA, statin, beta-naida (6) Diabetes mellitus, type II: Plan: Hgb A1c 6.1 06/2021 Hold oral agents and utilize NovoLog per protocol while hospitalized Update A1c with a.m. labs (7) DVT prophylaxis: Plan: SQ Lovenox Admission and Anticipated Discharge Date Admission Date: April 17, 2022 History of Present Illness Chief Complaint: Generalized weakness Primary Care Provider: Poncho Dillon MD 81-year-old male with PMH DM type II, CAD, AAA repair, HTN, urethral stricture, and other problems listed below who presents to the ED for evaluation of generalized weakness. Patient reports that he woke up around 3 AM and attempted to walk to the bathroom however he was profoundly weak and lowered himself to the floor. Patient reports that he was on the floor for about 15 minutes and his was able to help him back up again to bed. Patient reports that he was able to sleep for a few more hours and was able to get out of bed however continued to feel very weak. Patient then presented to the ED for further evaluation. Patient reports that his urine has had a foul odor for the past couple of weeks. Patient performs self calibration with catheter weekly for urethral stricture and reports burning with urination for a couple of days following. He denies any worsening of burning or dysuria. No fevers or chills. Denies abdominal pain, nausea, vomiting, diarrhea. No chest pain or shortness of breath. Denies lightheadedness, dizziness, diaphoresis, syncopal events. In the ED, labs show WBC 16 K, UA is suggestive of UTI. Patient has a low-grade fever, otherwise hemodynamically stable. Patient was given IV Zosyn, p.o. Tylenol, and IVF. Allergies Allergy/AdvReac Type Severity Reaction Status Date / Time No Known Allergies Allergy Verified 04/17/22 17:12 Home Medications Medication Instructions Recorded Confirmed Type aspirin 81 mg chewable tablet 81 mg PO DAILY 10/04/19 04/17/22 History atorvastatin 40 mg tablet 40 mg PO QAM 10/04/19 04/17/22 History metformin 500 mg tablet 500 mg PO BIDM 10/04/19 04/17/22 History metoprolol succinate 25 mg 25 mg PO QAM 10/04/19 04/17/22 History tablet,extended release 24 hr nitroglycerin 0.4 mg sublingual 0.4 mg SUBLINGUAL DIRECTED PRN 10/04/19 04/17/22 History tablet tamsulosin 0.4 mg capsule 0.4 mg PO QAM 04/17/22 04/17/22 History Past Med/Surg History Medical History Coronary artery disease PCI x1 WALKER to RCA 03/2018 COVID-19 Diabetes mellitus, type II Dyslipidemia HTN (hypertension) Surgical History History of cardiac cath 03/2018 - WALKER to RCA No pertinent past surgical history S/P AAA repair Family History Other Cancer Diabetes Heart disease Hypertension Social History Smoking Status: Current every day smoker Tobacco Type: Cigarettes Cigarettes Per Day: less than pack; Second Hand Exposure: No; Do You Dip or Chew Tobacco: Yes; Tobacco Cessation Education Requested by Patient: No Hx Alcohol Use: Yes Hx Substance Use: Yes Preferred Language: Malian Communication Ability: Effective Civil Litigation Attorney Required: No Beliefs That Will Affect Care: None marital status: Current Living Situation: Spouse How many Children do You have: 3 Other Information That Helps Us Care for You: No Feels Safe at Home: Yes Safety Concerns: Feels Safe At This Time Assistive Devices: Denture - Upper, Denture - Lower and Glasses Review of Systems Review of Systems: ROS per HPI, all other systems reviewed and negative Physical Exam Constitutional: WD/WN, vitals as above Eyes: PERRL, conjunctivae normal, anicteric sclerae ENMT: external ear and nose normal, oropharynx normal Respiratory: normal respiratory effort, lungs clear to auscultation Cardiovascular: Rate/Rhythm: regular rate and regular rhythm Vessels: normal peripheral pulses Extremities: no edema Gastrointestinal (Abdomen): normal bowel sounds, soft, nontender, no hepatosplenomegaly Musculoskeletal: Extremities: no cyanosis and no clubbing Generally weak throughout Skin: no rashes, warm and dry Neurologic: PERRL, EOMI, accommodation nl, no face palsy, no dysarthria Psychiatric: A+Ox3, euthymic affect Results & Data Results & Data ([facility]) Vital Signs (Past 12 Hours) Vital Signs Temp Pulse Pulse Pulse Resp BP BP 04/17/22 21:12 36.7 C 77 18 04/17/22 20:30 76 24 113/60 04/17/22 20:00 63 21 119/62 04/17/22 19:30 73 21 100/67 04/17/22 19:18 18 04/17/22 19:06 69 18 119/80 04/17/22 19:00 71 19 119/80 04/17/22 18:30 69 22 110/60 04/17/22 18:19 68 24 107/61 04/17/22 18:00 77 25 H 96/52 L 04/17/22 17:46 80 28 H 93/77 L 04/17/22 17:35 37.0 C 04/17/22 17:30 79 22 109/54 L 04/17/22 17:00 77 28 H 99/59 L 04/17/22 16:30 83 28 H 115/67 04/17/22 16:02 81 24 04/17/22 15:27 81 82 16 122/70 04/17/22 15:12 37.8 C H 88 18 122/67 BP Pulse Ox 04/17/22 21:12 136/58 L 96 04/17/22 20:30 97 04/17/22 20:00 97 04/17/22 19:30 92 04/17/22 19:18 98 04/17/22 19:06 97 04/17/22 19:00 04/17/22 18:30 97 04/17/22 18:19 97 04/17/22 18:00 96 04/17/22 17:46 96 04/17/22 17:35 04/17/22 17:30 95 04/17/22 17:00 97 04/17/22 16:30 96 04/17/22 16:02 95 04/17/22 15:27 95 04/17/22 15:12 98 Laboratory Results Short CBC 04/17/22 Range/Units 15:34 WBC 16.39 H (4.8-10.8) K/uL Hgb 13.8 L (14.0-18.0) g/dL Hct 41.2 L (42-52) % Plt Count 142 (130-400) K/uL BMP 04/17/22 15:34 Sodium 134 L Potassium 4.0 Chloride 101 Carbon Dioxide 26 BUN 19 Creatinine 1.28 Glucose 132 H Calcium 9.3 Liver Function 04/17/22 Range/Units 15:34 Total Bilirubin 2.3 H (0.2-1.0) mg/dl AST 14 (13-39) U/L ALT 12 (7-52) U/L Alkaline Phosphatase 62 (34-104) U/L Albumin 4.0 (3.4-5.0) gm/dl Urine 04/17/22 Range/Units 17:40 Urine Color Yellow Urine Appearance Cloudy A (Clear) Urine pH 6.0 (4.5-7.5) Ur Specific [place] 1.013 (1.000-1.030) Urine Protein 2+ H (Negative) Urine Glucose (UA) Negative (Negative) Diagnostic Findings Chest X-Ray 04/17/22 15:52 XR chest 1V portable CLINICAL HISTORY: SEPSIS COMPARISON STUDY: Chest radiograph June 10, 2022. Chest CT April 26, 2018. FINDINGS: Lung volumes are normal. No pneumothorax or pleural effusion is noted. Cardiomegaly is unchanged. Interstitial thickening is unchanged. No evidence for overt pulmonary edema. No consolidation to suggest pneumonia. Appearance of the chest is unchanged. IMPRESSION: No acute cardiopulmonary findings. No change in appearance of the chest. ACT 112: Negative or not required by law. Electronically signed by: Paolo Perea M.D. 04/17/2022 4:23 PM Code Status & VTE Plan Code Status Patient is a DNR as per my discussion with him. VTE Prophylaxis Plan VTE Prophylaxis will be ordered: Yes Supervising Physician Co-Signing Physician Notes Patient was seen and examined with Radha BARROSO. Chart reviewed, case discussed with her and agree with the documentation above. In summary, this is a 81 year old male who presented to the ED with generalized weakness and found to have UTI. Continue rocephin pending urine clx results. PT/OT eval. Rest per the note above. (1) Urinary tract infection Hematuria presence: with hematuria Urinary tract infection type: site unspecified Qualified Code(s): N39.0 - Urinary tract infection, site not specified; R31.9 - Hematuria, unspecified
[2022-04-17] MEDS: SODIUM CHLORIDE 0.9% 1000ML 1,000 ML IV SCH (22:03)
[2022-04-17] MEDS: INSULIN ASPART PER UNIT SC SCH (22:09)
[2022-04-17] MEDS: cefTRIAXone SODIUM 2,000 MG in DEXTROSE 5% 50 ML IV SCH (23:47)
[2022-04-18 07:29] LABS: Hemoglobin 11.6 g/dL (14.0-18.0); Mean Corpuscular Hemoglobin 31.4 pg (25-34); Mean Corpuscular Hgb Conc 33.1 g/dL (32-36); Mean Corpuscular Volume 94.9 fL (80-100); Mean Platelet Volume 10.1 fL (7.4-10.4); Platelet Count 115 K/uL (130-400); RDW Standard Deviation 48.2 fL (36.4-46.3); Red Blood Count 3.69 M/uL (4.7-6.1); White Blood Count 13.98 K/uL (4.8-10.8)
[2022-04-18 08:15] LABS: BUN Creatinine Ratio 15.8 (10-20); Calcium 8.3 mg/dl (8.5-10.1); Creatinine Clr Calc Pharmacy 50.4 ml/min; Est GFR (African American) 66.3 ml/min; Est GFR (Non-African American) 57.2 ml/min; Potassium 3.8 mmol/L (3.5-5.1)
[2022-04-18 09:01] LABS: Estimated Average Glucose 140 mg/dl; Hemoglobin A1C 6.5 % (4.5-5.6)
[2022-04-18] MEDS: METOPROLOL SUCC 25MG EXT REL TAB PO SCH (09:05)
[2022-04-18] MEDS: ATORVASTATIN 40 MG TAB PO SCH (09:05)
[2022-04-18] MEDS: ASPIRIN 81 MG CHEW PO SCH (09:05)
[2022-04-18] MEDS: TAMSULOSIN HCL 0.4 MG CAP PO SCH (09:06)
[2022-04-18] MEDS: ENOXAPARIN INJ 40 MG/0.4 ML SYR SQ SCH (09:06)
[2022-04-18] MEDS: INSULIN ASPART PER UNIT SC SCH ×4 (09:09→20:46)
[2022-04-18] MEDS: SODIUM CHLORIDE 0.9% 1000ML 1,000 ML IV SCH (10:19)
[2022-04-18 10:58] LABS: Bilirubin Direct 0.4 mg/dl (0-0.2)
[2022-04-18 11:14] LABS: Albumin Level 3.1 gm/dl (3.4-5.0); Bilirubin,Total 1.4 mg/dl (0.2-1.0); Total Protein 5.8 gm/dl (6.0-8.3)
--- NOTE | 2022-04-18 15:47 | Hospitalist Progress Note ---
Date of Service April 18, 2022 Assessment & Plan (1) Urinary tract infection: (2) Generalized weakness: Plan: Generalized weakness Likely secondary to UTI Blood cultures no growth to date Urine culture growing gram-negative bacilli Continue ceftriaxone Received gentle fluids PT/OT Leukocytosis trending down (3) Bigeminy: Plan: PVCs RBBB Continue metoprolol Monitor on telemetry (4) Elevated bilirubin: Plan: T bili 2.3>1.4 Normal AST, ALT, alk phos Monitor (5) Coronary artery disease: Plan: Continue ASA, statin, beta-naida (6) Diabetes mellitus, type II: Plan: Hgb A1c 6.5 Hold oral agents and utilize NovoLog per protocol while hospitalized (7) DVT prophylaxis: Plan: SQ Lovenox Admission and Anticipated Discharge Date Admission Date: April 17, 2022 Subjective Patient is seen and examined at bedside States feeling much better today Reports increased urinary frequency Denies any dysuria, hematuria, chest pain, dyspnea, dizziness, nausea, abdominal pain Offers no other complaints Urine culture growing gram-negative bacilli Review of Systems Review of Systems: All systems reviewed & are unremarkable except as noted in Subjective Physical Exam Physical Exam: Physical Exam: Vitals signs as noted above General Appearance:Moderately built and nourished, no apparent distress Head: normocephalic, Atraumatic Eyes: normal inspection, EOMI Neck: supple, Trachea midline Respiratory/Chest: Normal breath sounds, CTA, No accessory muscle use Cardiovascular: S1, S2, No murmur Abdomen/GI:Soft, Non tender, Bowel sounds present Extremities/Musculoskeletal:normal inspection, no edema Neurologic/Psych:AAOX3, grossly no focal neurological deficits Skin: normal color, warm Results & Data Results & Data ([facility]) Vital Signs (Past 12 Hours) Vital Signs Temp Pulse Pulse Resp BP Pulse Ox 04/18/22 15:10 36.7 C 73 18 111/66 94 04/18/22 11:01 36.7 C 78 18 110/54 L 94 04/18/22 08:13 79 04/18/22 07:39 36.7 C 86 18 107/67 94 Laboratory Results Short CBC 04/17/22 04/18/22 Range/Units 15:34 06:56 WBC 16.39 H 13.98 H (4.8-10.8) K/uL Hgb 13.8 L 11.6 L (14.0-18.0) g/dL Hct 41.2 L 35.0 L (42-52) % Plt Count 142 115 L (130-400) K/uL BMP 04/17/22 04/18/22 15:34 06:56 Sodium 134 L 136 Potassium 4.0 3.8 Chloride 101 106 Carbon Dioxide 26 25 BUN 19 19 Creatinine 1.28 1.20 Glucose 132 H 105 H Calcium 9.3 8.3 L Liver Function 04/17/22 04/18/22 Range/Units 15:34 06:56 Total Bilirubin 2.3 H 1.4 H (0.2-1.0) mg/dl Direct Bilirubin 0.4 H (0-0.2) mg/dl AST 14 13 (13-39) U/L ALT 12 11 (7-52) U/L Alkaline Phosphatase 62 47 (34-104) U/L Albumin 4.0 3.1 L (3.4-5.0) gm/dl Urine 04/17/22 Range/Units 17:40 Urine Color Yellow Urine Appearance Cloudy A (Clear) Urine pH 6.0 (4.5-7.5) Ur Specific [place] 1.013 (1.000-1.030) Urine Protein 2+ H (Negative) Urine Glucose (UA) Negative (Negative) (1) Urinary tract infection Hematuria presence: with hematuria Urinary tract infection type: site unspecified Qualified Code(s): N39.0 - Urinary tract infection, site not spec ified; R31.9 - Hematuria, unspecified
--- NOTE | 2022-04-18 17:57 | Electrocardiogram Report ---
Test Reason : Blood Pressure : / mmHG Vent. Rate : 080 BPM Atrial Rate : 080 BPM P-R Int : 168 ms QRS Dur : 120 ms QT Int : 384 ms P-R-T Axes : 045 026 014 degrees QTc Int : 442 ms Normal sinus rhythm Possible Left atrial enlargement Low voltage QRS Right bundle branch block Abnormal ECG When compared with ECG of 11-DEC-2021 17:02, Premature ventricular complexes are no longer Present Confirmed by Brando Miller ([id number]) on 04/18/2022 5:57:08 PM Referred By: REFERRED SELF Confirmed By:Alberto Miller
--- NOTE | 2022-04-18 18:01 | Electrocardiogram Report ---
Test Reason : Blood Pressure : / mmHG Vent. Rate : 076 BPM Atrial Rate : 076 BPM P-R Int : 174 ms QRS Dur : 124 ms QT Int : 410 ms P-R-T Axes : 054 034 018 degrees QTc Int : 461 ms Sinus rhythm with frequent Premature ventricular complexes Possible Left atrial enlargement Right bundle branch block Abnormal ECG When compared with ECG of 17-APR-2022 15:33, (unconfirmed) Premature ventricular complexes are now Present Confirmed by Brando Miller ([id number]) on 04/18/2022 6:01:01 PM Referred By: REFERRED SELF Confirmed By:Alberto Miller
--- NOTE | 2022-04-18 18:09 | Electrocardiogram Report ---
Test Reason : Blood Pressure : / mmHG Vent. Rate : 084 BPM Atrial Rate : 084 BPM P-R Int : 172 ms QRS Dur : 128 ms QT Int : 384 ms P-R-T Axes : 047 038 025 degrees QTc Int : 453 ms Sinus rhythm with occasional Premature ventricular complexes Right bundle branch block Abnormal ECG When compared with ECG of 17-APR-2022 20:24, (unconfirmed) No significant change was found Confirmed by Brando Miller ([id number]) on 04/18/2022 6:09:19 PM Referred By: REFERRED SELF Confirmed By:Alberto Miller
[2022-04-19] MEDS: cefTRIAXone SODIUM 2,000 MG in DEXTROSE 5% 50 ML IV SCH (00:51)
[2022-04-19 07:58] LABS: Hematocrit (blood only) 36.2 % (42-52); Hemoglobin 12.2 g/dL (14.0-18.0); Mean Corpuscular Hemoglobin 31.9 pg (25-34); Mean Corpuscular Hgb Conc 33.7 g/dL (32-36); Mean Corpuscular Volume 94.8 fL (80-100); Mean Platelet Volume 10.1 fL (7.4-10.4); Platelet Count 125 K/uL (130-400); RDW Coefficient of Variation 13.8 % (11.5-14.5); RDW Standard Deviation 48.1 fL (36.4-46.3); Red Blood Count 3.82 M/uL (4.7-6.1); White Blood Count 8.85 K/uL (4.8-10.8)
[2022-04-19] MEDS: ASPIRIN 81 MG CHEW PO SCH (08:21)
[2022-04-19] MEDS: METOPROLOL SUCC 25MG EXT REL TAB PO SCH (08:21)
[2022-04-19] MEDS: ATORVASTATIN 40 MG TAB PO SCH (08:21)
[2022-04-19] MEDS: TAMSULOSIN HCL 0.4 MG CAP PO SCH (08:21)
[2022-04-19] MEDS: ENOXAPARIN INJ 40 MG/0.4 ML SYR SQ SCH (08:21)
[2022-04-19] MEDS: INSULIN ASPART PER UNIT SC SCH ×2 (08:23→12:24)
[2022-04-19 08:27] LABS: BUN Creatinine Ratio 15.9 (10-20); Calcium 8.7 mg/dl (8.5-10.1); Creatinine Clr Calc Pharmacy 56.3 ml/min; Est GFR (African American) 76.1 ml/min; Est GFR (Non-African American) 65.7 ml/min; Potassium 3.9 mmol/L (3.5-5.1)
--- NOTE | 2022-04-19 13:25 | Electrocardiogram Report ---
Test Reason : Blood Pressure : / mmHG Vent. Rate : 077 BPM Atrial Rate : 077 BPM P-R Int : 174 ms QRS Dur : 126 ms QT Int : 402 ms P-R-T Axes : 050 035 010 degrees QTc Int : 454 ms Sinus rhythm with frequent Premature ventricular complexes Right bundle branch block Abnormal ECG When compared with ECG of 18-APR-2022 05:23, No significant change was found Confirmed by Alphonso Martinez ([id number]) on 04/19/2022 1:24:35 PM Referred By: REFERRED SELF Confirmed By:Alphonso Martinez
[2022-04-19] MEDS ORDERED: cefTRIAXone SODIUM 2,000 MG in DEXTROSE 5% 50 ML IV SCH (14:00)
--- NOTE | 2022-04-19 14:16 | Hospitalist Progress Note ---
Date of Service April 19, 2022 Assessment & Plan (1) Urinary tract infection: (2) Generalized weakness: Plan: Generalized weakness Likely secondary to UTI Blood cultures: no growth to date Urine culture: Citrobacter Continue ceftriaxone Day #3 Received gentle fluids PT/OT eval Leukocytosis resolved (3) Bigeminy: Plan: PVCs RBBB Continue metoprolol Monitor on telemetry Asymptomatic (4) Elevated bilirubin: Plan: T bili 2.3>1.4 Normal AST, ALT, alk phos Monitor (5) Coronary artery disease: Plan: Continue ASA, statin, beta-naida (6) Diabetes mellitus, type II: Plan: Hgb A1c 6.5 Hold oral agents and utilize NovoLog per protocol while hospitalized (7) DVT prophylaxis: Plan: SQ Lovenox Admission and Anticipated Discharge Date Admission Date: April 17, 2022 Subjective Patient is seen and examined at bedside States feeling well today No new complaints Eager to get discharged urinary frequency normalized Denies any dysuria, hematuria, chest pain, dyspnea, dizziness, nausea, abdominal pain Review of Systems Review of Systems: All systems reviewed & are unremarkable except as noted in Subjective Physical Exam Physical Exam: Physical Exam: Vitals signs as noted above General Appearance:Moderately built and nourished, no apparent distress Head: normocephalic, Atraumatic Eyes: normal inspection, EOMI Neck: supple, Trachea midline Respiratory/Chest: Normal breath sounds, CTA, No accessory muscle use Cardiovascular: S1, S2, No murmur Abdomen/GI:Soft, Non tender, Bowel sounds present Extremities/Musculoskeletal:normal inspection, no edema Neurologic/Psych:AAOX3, grossly no focal neurological deficits Skin: normal color, warm Results & Data Results & Data ([facility]) Vital Signs (Past 12 Hours) Vital Signs Temp Pulse Pulse Resp BP BP Pulse Ox 04/19/22 11:11 36.5 C 53 L 18 119/68 93 04/19/22 07:28 36.4 C L 65 18 137/70 93 04/19/22 06:18 60 04/19/22 03:22 36.8 C 82 18 118/60 93 Laboratory Results Short CBC 04/19/22 Range/Units 07:06 WBC 8.85 (4.8-10.8) K/uL Hgb 12.2 L (14.0-18.0) g/dL Hct 36.2 L (42-52) % Plt Count 125 L (130-400) K/uL BMP 04/19/22 07:06 Sodium 138 Potassium 3.9 Chloride 107 Carbon Dioxide 24 BUN 17 Creatinine 1.07 Glucose 91 Calcium 8.7 (1) Urinary tract infection Hematuria presence: with hematuria Urinary tract infection type: site unspecified Qualified Code(s): N39.0 - Urinary tract infection, site not specified; R31.9 - Hematuria, unspecified
--- NOTE | 2022-04-19 14:21 | Discharge Summary ---
Date of Service April 19, 2022 Admission HPI Per Admitting Provider 81-year-old male with PMH DM type II, CAD, AAA repair, HTN, urethral stricture, and other problems listed below who presents to the ED for evaluation of generalized weakness. Patient reports that he woke up around 3 AM and attempted to walk to the bathroom however he was profoundly weak and lowered himself to the floor. Patient reports that he was on the floor for about 15 minutes and his was able to help him back up again to bed. Patient reports that he was able to sleep for a few more hours and was able to get out of bed however continued to feel very weak. Patient then presented to the ED for further e valuation. Patient reports that his urine has had a foul odor for the past couple of weeks. Patient performs self calibration with catheter weekly for urethral stricture and reports burning with urination for a couple of days following. He denies any worsening of burning or dysuria. No fevers or chills. Denies abdominal pain, nausea, vomiting, diarrhea. No chest pain or shortness of breath. Denies lightheadedness, dizziness, diaphoresis, syncopal events. In the ED, labs show WBC 16 K, UA is suggestive of UTI. Patient has a low-grade fever, otherwise hemodynamically stable. Patient was given IV Zosyn, p.o. Tylenol, and IVF. Admission Exam Per Admitting Provider Physical Exam Constitutional: WD/WN, vitals as above Eyes: PERRL, conjunctivae normal, anicteric sclerae ENMT: external ear and nose normal, oropharynx normal Respiratory: normal respiratory effort, lungs clear to auscultation Cardiovascular: Rate/Rhythm: regular rate and regular rhythm Vessels: normal peripheral pulses Extremities: no edema Gastrointestinal (Abdomen): normal bowel sounds, soft, nontender, no hepatosplenomegaly Musculoskeletal: Extremities: no cyanosis and no clubbing Generally weak throughout Skin: no rashes, warm and dry Neurologic: PERRL, EOMI, accommodation nl, no face palsy, no dysarthria Psychiatric: A+Ox3, euthymic affect Principal Diagnosis Urinary tract infection Discharge Data Allergies Allergy/AdvReac Type Severity Reaction Status Date / Time No Known Allergies Allergy Verified 04/17/22 17:12 Consultations 04/17/22 18:30 ED Decision to Admit Stat Hospital Course (1) Urinary tract infection: (2) Generalized weakness: Generalized weakness Likely secondary to UTI Blood cultures: no growth to date Urine culture: Citrobacter Continue ceftriaxone Day #3 Received gentle fluids PT/OT eval Leukocytosis resolved (3) Bigeminy: PVCs RBBB Continue metoprolol Monitor on telemetry Asymptomatic (4) Elevated bilirubin: T bili 2.3>1.4 Normal AST, ALT, alk phos Monitor (5) Coronary artery disease: Continue ASA, statin, beta-naida (6) Diabetes mellitus, type II: Hgb A1c 6.5 Hold oral agents and utilize NovoLog per protocol while hospitalized (7) DVT prophylaxis: SQ Lovenox Total Time Total Time Spent Total Time Spent (In Minutes): 47 minutes Discharge Plan Discharge Items Patient Disposition: Home - Self-Care Reason For Visit: UTI Discharge Diagnosis: Urinary tract infection Activity: Per Instructions section Exercise/Sports: Gradually increase as tolerated Non-emergency contact: Primary Care Provider Call non-emergency contact if: you have any medication questions, your symptoms worsen, your pain is concerning for you and you have a fever Follow-up/Referrals: Poncho Dillon MD [Primary Care Provider] - Diet: Carb Consistent or DM2 Addtl Attending Provider Instructions: Follow-up with your primary care physician in 1 week --- Complete the antibiotic course (Cefdinir 300mg twice a day) as prescribed. --- Blood cultures are pending at the time of discharge. Follow-up with your physician for results. Seek immediate medical attention if your symptoms reoccur or worsen Please take all medications as instructed on discharge list below. Please call if you have any questions or problems. You can reach a [facility] hospitalist on duty at [facility] 24 hours a day by calling [phone] Pending Studies at Discharge: Yes Studies:: Blood Cultures Stand-Alone Forms: My [facility] [employer], Smoking Cessation Medications and DC Order Prescriptions: New cefdinir 300 mg capsule 300 mg PO BID Qty: 8 RF: 0 Continued atorvastatin 40 mg tablet 40 mg PO QAM RF: 0 metformin 500 mg tablet 500 mg PO BIDM RF: 0 nitroglycerin 0.4 mg tablet, sublingual 0.4 mg sublingual DIRECTED PRN (Reason: Chest Pain) RF: 0 metoprolol succinate 25 mg tablet extended release 24 hr 25 mg PO QAM RF: 0 aspirin 81 mg Tablet,Chewable 81 mg PO DAILY RF: 0 tamsulosin 0.4 mg capsule 0.4 mg PO QAM RF: 0 Discharge Orders: Discharge Order (Routine); Ordered 04/19/22 Ordered By: Augusto Mendez Admission Data Admit Date/Time: 04/17/22 18:43 Attending Provider: Augusto Mendez Admit Provider: Daryl Hooks Primary Care Provider: Poncho Dillon Other Providers: Daryl Hooks
== END 2022-04-19 14:59 | disposition home or self-care (01) | DRG 690 ==
LOC: ED 15:08 → SUATTDRO 18:43 → 2N 18:43 → INTOOBSV 18:43 → 2N 21:06

== ENCOUNTER 2023-03-30 16:47 | Observation (INO) ==
--- NOTE | 2023-03-30 17:20 | ED Triage Note ---
Date of Service March 30, 2023 History of Present Illness This patient was briefly evaluated while in triage. An abbreviated physical exam was performed. This patient is a 82-year-old Male who presents to the ED for evaluation of weakness. He states that he just feels weak all over. His tried to get hi m up today and he wasn't able to get up on his own and slumped back down to the floor. Did not actually fall and denies any injuries or pain. Not on blood thinners. Symptoms started this morning. Denies fevers, cough, or URI symptoms. However, has had chills. Blood sugar 108 this morning. Physical Exam GENERAL: Non-toxic and in no acute distress. HEENT: Pupils equal. No obvious scleral icterus. No facial droop. Normal speech. HEART: Regular rate and rhythm. LUNGS: Clear to auscultation. No accessory muscle use. ABDOMEN: Soft, nontender to palpation. NEURO: Alert and oriented. No obvious neurological deficits on quick neuro exam. MUSCULOSKELETAL: Weakness in the bilateral upper and lower extremities which is equal bilaterally. Initial orders for labs and / or imaging were placed and patient was placed in the waiting area until a bed is available. Please see further documentation for the full ED course. MDM / Impression Impression Impression: Weakness, Lab test negative for COVID-19 virus, Urinary tract infection, Type 2 diabetes mellitus, Coronary artery disease Impression: Urinary tract infection Qualifiers: Urinary tract infection type: acute cystitis Hematuria presence: without hematuria Qualified Code(s): N30.00 - Acute cystitis without hematuria Type 2 diabetes mellitus Qualifiers: Diabetes mellitus terminal makeup operator insulin use: without terminal makeup operator use Diabetes mellitus complication status: without complication Qualified Code(s): E11.9 - Type 2 diabetes mellitus without complications Coronary artery disease Qualifiers: Coronary Disease-Associated Artery/Lesion type: unspecified vessel or lesion type [place] vs. transplanted heart: unspecified whether [place] or transplanted heart Associated angina: without angina Qualified Code(s): I25.10 - Atherosclerotic heart disease of [place] coronary artery without angina pectoris
[2023-03-30 18:08] LABS: Basophils # (auto) 0.03 K/uL (0-0.2); Basophils % (auto) 0.2 %; Eosinophils # (auto) 0.05 K/uL (0-0.50); Eosinophils % (auto) 0.4 %; Hematocrit (blood only) 39.7 % (42.0-52.0); Hemoglobin 13.6 g/dl (14.0-18.0); Immature Granulocytes # (auto) 0.07 K/uL (0.01-0.20); Immature Granulocytes % (auto) 0.6 %; Lymphocytes # (auto) 1.09 K/uL (1.2-3.4); Lymphocytes % (auto) 8.7 %; Mean Corpuscular Hemoglobin 31.8 pg (25.0-34.0); Mean Corpuscular Hgb Conc 34.3 g/dL (32.0-36.0); Mean Corpuscular Volume 92.8 fL (80.0-100.0); Mean Platelet Volume 9.7 fL (9.4-12.4); Monocytes # (auto) 0.99 K/uL (0.11-0.59); Monocytes % (auto) 7.9 %; Neutrophils # (auto) 10.36 K/uL (1.40-6.50); Neutrophils % (auto) 82.2 %; Platelet Count 177 K/uL (130-400); RDW Coefficient of Variation 13.2 % (11.5-14.5); RDW Standard Deviation 45.2 fL (36.4-46.3); Red Blood Count 4.28 M/uL (4.70-6.10); White Blood Count 12.59 K/ul (4.8-10.8)
[2023-03-30 18:22] LABS: Albumin Globulin Ratio 1.4 (0.9-2); Albumin Level 4.1 gm/dl (3.4-5.0); BUN Creatinine Ratio 15.4 (10-20); Bilirubin,Total 1.2 mg/dl (0.2-1.0); Calcium 9.3 mg/dl (8.6-10.3); Creatinine Clr Calc Pharmacy 42.3 ml/min; Est GFR (African American) 63.9 ml/min; Est GFR (Non-African American) 55.1 ml/min; Magnesium 1.7 mg/dl (1.7-2.4); Potassium 4.4 mmol/L (3.5-5.1); Total Protein 7.1 gm/dl (6.0-8.3)
[2023-03-30 18:29] LABS: Troponin I High Sensitivity 7.3 pg/ml (0-20)
[2023-03-30] MEDS ORDERED: SODIUM CHLORIDE 0.9% 1000ML 500 ML IV ONE (18:46)
--- NOTE | 2023-03-30 18:51 | Emergency Department Note ---
History of Present Illness General Chief complaint: Weakness Stated complaint: WEAKNESS Time Seen by Provider: 03/30/23 18:35 Source: patient, family ( was at the bedside), RN notes reviewed and old records reviewed (I have reviewed his admission from earlier this year) Mode of arrival: ambulatory Limitations: no limitations History of Present Illness This patient is a an 82-year-old male who comes in after having generalized weakness. He woke up at 8:00 this morning and went back to bed from 10 and about 230 that is extremely unusual for him he is very active. The weakness is generalized weakness is not focal. His said he could not get off the couch and then lost his balance. He managed to make it to the bathroom but did not make it in time and wet himself. When he was changing his clothes he slid and fell but did not injure himself. He had no recent fall or trauma no fever. No difficulty speaking or swallowing no change in vision no chest pain or shortness of breath no heart racing no abdominal pain no dysuria hematuria no blood or melena in the stool. No back pain no nausea or vomiting. He was admitted earlier this year for very similar spell he said his he had a urine infection at that time he has been on a diuretic since November but no other new medications. He is followed by Dr. Beulah Last. Home Medications Medication Instructions Recorded Confirmed Type aspirin 81 mg chewable tablet 81 mg PO DAILY 10/04/19 03/30/23 History atorvastatin 40 mg tablet 40 mg PO QAM 10/04/19 03/30/23 History metformin 500 mg tablet 500 mg PO BIDM 10/04/19 03/30/23 History metoprolol succinate 25 mg 25 mg PO QAM 10/04/19 03/30/23 History tablet,extended release 24 hr nitroglycerin 0.4 mg sublingual 0.4 mg sublingual DIRECTED PRN 10/04/19 03/30/23 History tablet Chest Pain hydrochlorothiazide 12.5 mg capsule 12.5 mg PO QAM 03/30/23 03/30/23 History Allergies Allergy/AdvReac Type Severity Reaction Status Date / Time No Known Allergies Allergy Verified 03/30/23 18:54 Past Med/Surg History Medical History Coronary artery disease PCI x1 WALKER to RCA 03/2018 COVID-19 Diabetes mellitus, type II Dyslipidemia HTN (hypertension) Surgical History History of cardiac cath 03/2018 - WALKER to RCA No pertinent past surgical history S/P AAA repair Family History Other Cancer Diabetes Heart disease Hypertension Social History Smoking Status: Former smoker Tobacco Type: Cigarettes Cigarettes Per Day: less than pack; Second Hand Exposure: No; Do You Dip or Chew Tobacco: No; Hx Alcohol Use: Yes Alcohol type: beer Hx Substance Use: No Preferred Language: Albanian Communication Ability: Effective Project Archivist Required: No Beliefs That Will Affect Care: None marital status: Current Living Situation: Spouse How many Children do You have: 3 Other Information That Helps Us Care for You: No Feels Safe at Home: Yes Safety Concerns: Feels Safe At This Time Assistive Devices: Glasses Immunizations: Social treelives locally with spouse Physical Exam Vital Signs Vital Signs - 24 hr 03/30/23 17:16 03/30/23 18:49 03/30/23 19:13 Temperature 37.0 C Temperature Source Temporal Artery Scan Pulse Rate 82 74 Pulse Rate from SpO2 Sensor 76 Pulse Rhythm Regular Pulse Strength Normal Respiratory Rate 18 15 15 Respiratory Effort / Characteristics Non-Labored Respiratory Depth Normal Respiratory Pattern Regular Blood Pressure 111/77 Blood Pressure Mean 88 Blood Pressure Position Sitting Pulse Oximetry 96 96 98 Oxygen Delivery Method Room Air Sepsis Recent Fever Within 48 Hours No Sepsis New/Unexplained Change in Mental Status N/A Sepsis Action Taken by Nursing No Action Required 03/30/23 19:15 03/30/23 19:30 03/30/23 19:30 Temperature Temperature Source Pulse Rate 78 74 Pulse Rate from SpO2 Sensor 76 Pulse Rhythm Pulse Strength Respiratory Rate 21 16 Respiratory Effort / Characteristics Respiratory Depth Respiratory Pattern Blood Pressure 125/68 Blood Pressure Mean 87 Blood Pressure Position Pulse Oximetry 95 Oxygen Delivery Method Sepsis Recent Fever Within 48 Hours Sepsis New/Unexplained Change in Mental Status Sepsis Action Taken by Nursing 03/30/23 19:48 03/30/23 20:00 03/30/23 20:00 Temperature Temperature Source Pulse Rate 110 H 77 Pulse Rate from SpO2 Sensor Pulse Rhythm Pulse Strength Respiratory Rate 19 20 Respiratory Effort / Characteristics Respiratory Depth Respiratory Pattern Blood Pressure 122/74 Blood Pressure Mean 90 Blood Pressure Position Pulse Oximetry Oxygen Delivery Method Sepsis Recent Fever Within 48 Hours Sepsis New/Unexplained Change in Mental Status Sepsis Action Taken by Nursing 03/30/23 19:13 03/30/23 20:15 03/30/23 20:30 Temperature Temperature Source Pulse Rate 74 75 Pulse Rate from SpO2 Sensor Pulse Rhythm Pulse Strength Respiratory Rate 14 Respiratory Effort / Characteristics Respiratory Depth Respiratory Pattern Blood Pressure 118/65 Blood Pressure Mean 82 Blood Pressure Position Pulse Oximetry Oxygen Delivery Method Sepsis Recent Fever Within 48 Hours Sepsis New/Unexplained Change in Mental Status Sepsis Action Taken by Nursing 03/30/23 20:30 03/30/23 20:49 03/30/23 21:00 Temperature Temperature Source Pulse Rate 77 87 Pulse Rate from SpO2 Sensor 77 Pulse Rhythm Pulse Strength Respiratory Rate 14 23 Respiratory Effort / Characteristics Respiratory Depth Respiratory Pattern Blood Pressure 109/57 L Blood Pressure Mean 74 Blood Pressure Position Pulse Oximetry 94 Oxygen Delivery Method Sepsis Recent Fever Within 48 Hours Sepsis New/Unexplained Change in Mental Status Sepsis Action Taken by Nursing 03/30/23 21:00 Temperature Temperature Source Pulse Rate 82 Pulse Rate from SpO2 Sensor 82 Pulse Rhythm Pulse Strength Respiratory Rate 15 Respiratory Effort / Characteristics Respiratory Depth Respiratory Pattern Blood Pressure Blood Pressure Mean Blood Pressure Position Pulse Oximetry 94 Oxygen Delivery Method Sepsis Recent Fever Within 48 Hours Sepsis New/Unexplained Change in Mental Status Sepsis Action Taken by Nursing General: Well developed well nourished [id number] older male who appears alert on x3 and in no acute distress, breathing comfortably on room air. Normal speech HEENT: Normal cephalic atraumatic. Pupils are equal round and reactive to light. Extraocular movements are intact. Oropharynx is pink with moist mucous membranes. No swelling of the mouth lips or tongue. Neck: Supple with a midline trachea. No meningeal signs or stiffness, no JVD or bruits. No Stridor. Chest: Clear to auscultation bilaterally. No wheezes or rhonchi. No increased work of breathing. Heart: Regular rate and rhythm without murmurs or gallops. Abdomen: Soft nontender, nondistended without rebound guarding or rigidity. Extremities: No cyanosis clubbing or edema. No calf tenderness or assymetry Spine/Back. Non tender to palpation. No CVA tenderness Skin: Good turgor without rashes. Neurologic exam: Cranial nerves two through 12 are intact. Motor and sensation are intact and symmetrical throughout. While he does not appear to be focally weak when I had him try to stand and sit up he seems very weak diffusely. He was unable to pull himself up without assistance. Course Administered Medications Enoxaparin Sodium (Enoxaparin Inj 40 Mg/0.4 Ml Syr) 40 mg SQ Q24H EARL Stop: 04/29/23 22:02 Last Admin: 03/30/23 22:39 Dose: Not Given Documented By: GILDA Sodium Chloride (Nss 1000ml) 1,000 mls @ 100 mls/hr IV .Q10H EARL Stop: 03/31/23 18:02 Last Admin: 03/30/23 22:39 Dose: 100 mls/hr Documented By: GILDA Discontinued Medications Sodium Chloride (Nss 1000ml) 500 mls @ 999 mls/hr IV .Q31M ONE Stop: 03/30/23 19:16 Last Infusion: 03/30/23 19:23 Dose: 0 mls/hr Documented By: Admin: 03/30/23 18:51 Dose: 999 mls/hr Documented By: CLYDE Ceftriaxone Sodium (Rocephin) 2,000 mg in 70 mls @ 140 mls/hr IV NOW STA Stop: 03/30/23 20:39 Last Infusion: 03/30/23 21:01 Dose: 0 mls/hr Documented By: Admin: 03/30/23 20:27 Dose: 140 mls/hr Documented By: CLYDE Medical Decision Making Differential Diagnosis Weakness, UTI, arrhythmia, acute coronary syndrome, anemia, sepsis, electrolyte or metabolic abnormality, dehydration Medical Records Attestation: I reviewed the patient's medical records. Home Medications Current Medication List: was personally reviewed by me Laboratory Data Attestation: I reviewed the patient's lab results. 03/30/23 17:30 03/30/23 17:30 Lab Results 03/30/23 03/30/23 03/30/23 Range/Units 17:30 17:30 17:30 WBC 12.59 H (4.8-10.8) K/ul RBC 4.28 L (4.70-6.10) M/uL Hgb 13.6 L (14.0-18.0) g/dl Hct 39.7 L (42.0-52.0) % MCV 92.8 (80.0-100.0) fL MCH 31.8 (25.0-34.0) pg MCHC 34.3 (32.0-36.0) g/dL RDW Std Deviation 45.2 (36.4-46.3) fL RDW Coeff of Edilberto 13.2 (11.5-14.5) % Plt Count 177 (130-400) K/uL MPV 9.7 (9.4-12.4) fL Immature Gran % (Auto) 0.6 % Neut % (Auto) 82.2 % Lymph % (Auto) 8.7 % [place] % (Auto) 7.9 % Eos % (Auto) 0.4 % Baso % (Auto) 0.2 % Neut # (Auto) 10.36 H (1.40-6.50) K/uL Lymph # (Auto) 1.09 L (1.2-3.4) K/uL [place] # (Auto) 0.99 H (0.11-0.59) K/uL Eos # (Auto) 0.05 (0-0.50) K/uL Baso # (Auto) 0.03 (0-0.2) K/uL Immature Gran # (Auto) 0.07 (0.01-0.20) K/uL PT 11.4 (9.0-12.0) Seconds INR 1.0 (0.9-1.1) Sodium 134 L (136-145) mmol/L Potassium 4.4 (3.5-5.1) mmol/L Chloride 100 (98-107) mmol/L Carbon Dioxide 28 (21-32) mmol/L Anion Gap 6 (3-11) BUN 19 (6-23) mg/dl Creatinine 1.23 (0.6-1.4) mg/dl Est Cr Clr Drug Dosing 42.3 ml/min Est GFR ( Amer) 63.9 ml/min Est GFR (Non-Af Amer) 55.1 ml/min BUN/Creatinine Ratio 15.4 (10-20) Glucose 124 H (70-99(Fasting)) mg/dl Lactate (0.4-2.0) mmol/L Calcium 9.3 (8.6-10.3) mg/dl Magnesium 1.7 (1.7-2.4) mg/dl Total Bilirubin 1.2 H (0.2-1.0) mg/dl AST 15 (13-39) U/L ALT 11 (7-52) U/L Alkaline Phosphatase 70 (34-104) U/L Troponin I High Sens 7.3 (0-20) pg/ml Total Protein 7.1 (6.0-8.3) gm/dl Albumin 4.1 (3.4-5.0) gm/dl Globulin 3.0 (2.5-4.0) gm/dl Albumin/Globulin Ratio 1.4 (0.9-2) TSH (0.300-4.500) uIu/ml Urine Color Urine Appearance (Clear) Urine pH (4.5-7.5) Ur Specific [place] (1.000-1.030) Urine Protein (Negative) Urine Glucose (UA) (Negative) Urine Ketones (Negative) Urine Blood (Negative) Urine Nitrite (Negative) Urine Bilirubin (Negative) Urine Urobilinogen (Negative) Ur Leukocyte Esterase (Negative) Urine WBC (Auto) (0-5) /hpf Urine RBC (Auto) (0-4) /hpf U Hyaline Cast (Auto) (0-5) /lpf U Epithel Cells (Auto) (0-5) /lpf Urine Bacteria (Auto) (Negative) SARS-CoV-2 (PCR) (Negative) Influenza Type A (PCR) (Neg) Influenza Type B (PCR) (Neg) RSV (RT-PCR) (Neg) 03/30/23 03/30/23 03/30/23 Range/Units 17:30 17:30 19:25 WBC (4.8-10.8) K/ul RBC (4.70-6.10) M/uL Hgb (14.0-18.0) g/dl Hct (42.0-52.0) % MCV (80.0-100.0) fL MCH (25.0-34.0) pg MCHC (32.0-36.0) g/dL RDW Std Deviation (36.4-46.3) fL RDW Coeff of Edilberto (11.5-14.5) % Plt Count (130-400) K/uL MPV (9.4-12.4) fL Immature Gran % (Auto) % Neut % (Auto) % Lymph % (Auto) % [place] % (Auto) % Eos % (Auto) % Baso % (Auto) % Neut # (Auto) (1.40-6.50) K/uL Lymph # (Auto) (1.2-3.4) K/uL [place] # (Auto) (0.11-0.59) K/uL Eos # (Auto) (0-0.50) K/uL Baso # (Auto) (0-0.2) K/uL Immature Gran # (Auto) (0.01-0.20) K/uL PT (9.0-12.0) Seconds INR (0.9-1.1) Sodium (136-145) mmol/L Potassium (3.5-5.1) mmol/L Chloride (98-107) mmol/L Carbon Dioxide (21-32) mmol/L Anion Gap (3-11) BUN (6-23) mg/dl Creatinine (0.6-1.4) mg/dl Est Cr Clr Drug Dosing ml/min Est GFR ( Amer) ml/min Est GFR (Non-Af Amer) ml/min BUN/Creatinine Ratio (10-20) Glucose (70-99(Fasting)) mg/dl Lactate (0.4-2.0) mmol/L Calcium (8.6-10.3) mg/dl Magnesium (1.7-2.4) mg/dl Total Bilirubin (0.2-1.0) mg/dl AST (13-39) U/L ALT (7-52) U/L Alkaline Phosphatase (34-104) U/L Troponin I High Sens (0-20) pg/ml Total Protein (6.0-8.3) gm/dl Albumin (3.4-5.0) gm/dl Globulin (2.5-4.0) gm/dl Albumin/Globulin Ratio (0.9-2) TSH 0.647 (0.300-4.500) uIu/ml Urine Color Yellow Urine Appearance Clear (Clear) Urine pH 7.5 (4.5-7.5) Ur Specific [place] 1.006 (1.000-1.030) Urine Protein Negative (Negative) Urine Glucose (UA) Negative (Negative) Urine Ketones Negative (Negative) Urine Blood 1+ H (Negative) Urine Nitrite Negative (Negative) Urine Bilirubin Negative (Negative) Urine Urobilinogen Negative (Negative) Ur Leukocyte Esterase 2+ H (Negative) Urine WBC (Auto) 10-30 H (0-5) /hpf Urine RBC (Auto) 0-4 (0-4) /hpf U Hyaline Cast (Auto) 0 (0-5) /lpf U Epithel Cells (Auto) 5-10 H (0-5) /lpf Urine Bacteria (Auto) Negative (Negative) SARS-CoV-2 (PCR) NEGATIVE (Negative) Influenza Type A (PCR) Negative (Neg) Influenza Type B (PCR) Negative (Neg) RSV (RT-PCR) Negative (Neg) 03/30/23 03/30/23 Range/Units 19:57 19:57 WBC (4.8-10.8) K/ul RBC (4.70-6.10) M/uL Hgb (14.0-18.0) g/dl Hct (42.0-52.0) % MCV (80.0-100.0) fL MCH (25.0-34.0) pg MCHC (32.0-36.0) g/dL RDW Std Deviation (36.4-46.3) fL RDW Coeff of Edilberto (11.5-14.5) % Plt Count (130-400) K/uL MPV (9.4-12.4) fL Immature Gran % (Auto) % Neut % (Auto) % Lymph % (Auto) % [place] % (Auto) % Eos % (Auto) % Baso % (Auto) % Neut # (Auto) (1.40-6.50) K/uL Lymph # (Auto) (1.2-3.4) K/uL [place] # (Auto) (0.11-0.59) K/uL Eos # (Auto) (0-0.50) K/uL Baso # (Auto) (0-0.2) K/uL Immature Gran # (Auto) (0.01-0.20) K/uL PT (9.0-12.0) Seconds INR (0.9-1.1) Sodium (136-145) mmol/L Potassium (3.5-5.1) mmol/L Chloride (98-107) mmol/L Carbon Dioxide (21-32) mmol/L Anion Gap (3-11) BUN (6-23) mg/dl Creatinine (0.6-1.4) mg/dl Est Cr Clr Drug Dosing ml/min Est GFR ( Amer) ml/min Est GFR (Non-Af Amer) ml/min BUN/Creatinine Ratio (10-20) Glucose (70-99(Fasting)) mg/dl Lactate 1.5 (0.4-2.0) mmol/L Calcium (8.6-10.3) mg/dl Magnesium (1.7-2.4) mg/dl Total Bilirubin (0.2-1.0) mg/dl AST (13-39) U/L ALT (7-52) U/L Alkaline Phosphatase (34-104) U/L Troponin I High Sens 6.8 (0-20) pg/ml Total Protein (6.0-8.3) gm/dl Albumin (3.4-5.0) gm/dl Globulin (2.5-4.0) gm/dl Albumin/Globulin Ratio (0.9-2) TSH (0.300-4.500) uIu/ml Urine Color Urine Appearance (Clear) Urine pH (4.5-7.5) Ur Specific [place] (1.000-1.030) Urine Protein (Negative) Urine Glucose (UA) (Negative) Urine Ketones (Negative) Urine Blood (Negative) Urine Nitrite (Negative) Urine Bilirubin (Negative) Urine Urobilinogen (Negative) Ur Leukocyte Esterase (Negative) Urine WBC (Auto) (0-5) /hpf Urine RBC (Auto) (0-4) /hpf U Hyaline Cast (Auto) (0-5) /lpf U Epithel Cells (Auto) (0-5) /lpf Urine Bacteria (Auto) (Negative) SARS-CoV-2 (PCR) (Negative) Influenza Type A (PCR) (Neg) Influenza Type B (PCR) (Neg) RSV (RT-PCR) (Neg) Imaging Data Attestation: I personally reviewed and interpreted this imaging study as follows: My Impression: Chest x-raycardiomegaly but no acute infiltrate, failure, pneumothorax seen CT of the headno hemorrhage or mass effect seen Radiologist's Impression: Chest X-Ray 03/30/23 17:20 XR chest 1V portable HISTORY: 82 years-old Male weakness acute weakness COMPARISON: 04/17/2022 TECHNIQUE: AP view of the chest FINDINGS: Cardiomediastinal and hilar silhouettes are unchanged. Chronic interstitial coarsening. No pneumothorax, pleural effusion, airspace consolidation or pulmonary edema. Bones appear grossly intact. IMPRESSION: No acute process. ACT 112: Negative or not required by law. The above report was generated using voice recognition software. It may contain grammatical, syntax or spelling errors. Electronically signed by: Bay Avalos M.D. 03/30/2023 7:[address] 03/30/23 17:20 Exam(s): CT HEAD Without Contrast EXAM: CT Head Without Intravenous Contrast CLINICAL HISTORY: Reason for exam: Weakness. TECHNIQUE: Axial computed tomography images of the head/brain without intravenous contrast. CTDI is 38.39 mGy and DLP is 691.05 mGy-cm. Automated exposure control was utilized for the study. A dose lowering technique was utilized adhering to the principles of ALARA. COMPARISON: CT head 12/11/2021. FINDINGS: Artifacts: Exam is degraded by patient motion. Brain: Global parenchymal volume loss with chronic microvascular ischemic changes. No hemorrhage. Ventricles: Unremarkable. No ventriculomegaly. Bones/joints: Unremarkable. No acute fracture. Soft tissues: Left parotid mass measuring up to 1.9 cm. Sinuses: Mild mucosal thickening in the paranasal sinuses. Mastoid air cells: Unremarkable as visualized. No mastoid effusion. Orbits: Bilateral lens replacement. IMPRESSION: 1. No intracranial hemorrhage or other acute intracranial abnormality. 2. Global parenchymal volume loss with chronic microvascular ischemic changes. 3. Left parotid mass measuring up to 1.9 cm. This may be benign or malignant. Consider evaluation with MRI versus tissue sampling as clinically warranted. Electronically signed by: William Woodward MD 03/30/23 20:59 PM ECG Data Attestation: I personally reviewed and interpreted this ECG as follows: Indication: + weakness Rate (beats per minute): 75 Rhythm: + normal sinus ECG Intervals/blocks: + Right Bundle branch block and + Normal QT ECG Beauty: + Normal ECG ST segments: + Normal ST segments ECG Findings: no PACs or no PVCs Comparison ECG Date: from (02/17/22) Change: the following changes noted (Ectopy is now gone) MDM Narrative This patient comes in after having generalized weakness. He looks well on exam however when I sit him up he does appear very weak and is unable to get himself up is nonfocal. He has a normal neurologic exam otherwise besides generalized weakness. His vital signs are stable here he is afebrile he is normal blood pressure. IV access was established and he was hydrated with an IV normal saline bolus. He was given 500 cc IV initially. EKG does not show any ischemic changes or any change compared to old. His white count is elevated. He has no significant electrolyte or metabolic abnormalities. CAT scan of his head was obtained as well as chest x-ray. Urinalysis was obtained as well as COVID testi ng. COVID testing was negative. Chest x-ray was unremarkable does not show congestive heart failure, pneumonia, pneumothorax. He was given Rocephin 2 g IV as his white count was elevated and his urine does suggest a UTI. Had very similar presentation when he had his previous UTI. I did consult Dr. Pemberton, who from the [facility] team, to see the patient in ER for these measures. Continuous cardiac monitoring: An order was placed in EMR for continuous cardiac monitoring: Upon my evaluation patient was noted to be in CAT scan of his head was unremarkable. He was noted to be in normal sinus rhythm at a rate of 80. Impression & Plan Weakness, Lab test negative for COVID-19 virus, Urinary tract infection, Type 2 diabetes mellitus, Coronary artery disease Discharge Plan Visit Data Chief Complaint: Weakness Stated Complaint: WEAKNESS ED Provider: Jose F Zavala Discharge Problem: Weakness, Lab test negative for COVID-19 virus, Urinary tract infection, Type 2 diabetes mellitus, Coronary artery disease Patient Disposition: Admitted As Inpatient Discharge Instructions Interventions: ED Discharge Assessment Last Done: 03/30/23 21:38
[2023-03-30 18:56] LABS: Influenza A virus by PCR Negative (Neg); Influenza B virus by PCR Negative (Neg); RSV by PCR Negative (Neg); SARS CoV2 RNA(COVID-19) Ceph NEGATIVE (Negative)
--- NOTE | 2023-03-30 19:06 | XRay Report ---
XR chest 1V portable HISTORY: 82 years-old Male weakness acute weakness COMPARISON: 04/17/2022 TECHNIQUE: AP view of the chest FINDINGS: Cardiomediastinal and hilar silhouettes are unchanged. Chronic interstitial coarsening. No pneumothor ax, pleural effusion, airspace consolidation or pulmonary edema. Bones appear grossly intact. IMPRESSION: No acute process. ACT 112: Negative or not required by law. The above report was generated using voice recognition software. It may contain grammatical, syntax o r spelling errors. Electronically signed by: Bay Avalos M.D. 03/30/2023 7:05 PM
[2023-03-30 20:00] LABS: Appearance Urine Clear (Clear); Bacteria Urine Automated Negative (Negative); Bilirubin Urine Negative (Negative); Blood Urine 1+ (Negative); Cast Urine Automated 0 /lpf (0-5); Color Urine Yellow; Glucose Urine UA Negative (Negative); Ketones Urine Negative (Negative); Leukocyte Esterase Urine 2+ (Negative); Nitrite Urine Negative (Negative); Protein Urine Negative (Negative); RBC Urine Automated 0-4 /hpf (0-4); Specific Gravity Urine 1.006 (1.000-1.030); Urobilinogen Urine Negative (Negative); pH Urine 7.5 (4.5-7.5)
[2023-03-30] MEDS ORDERED: cefTRIAXone SODIUM 2,000 MG/70 ML BAG IV STA (20:10)
--- NOTE | 2023-03-30 21:00 | CT Scan Report ---
Exam(s): CT HEAD Without Contrast EXAM: CT Head Without Intravenous Contrast CLINICAL HISTORY: Reason for exam: Weakness. TECHNIQUE: Axial computed tomography images of the head/brain without intravenous contrast. CTDI is 38.39 mGy and DLP is 691.05 mGy-cm. Automated exposure control was utilized for the study. A dose lowering technique was utilized adhering to the principles of ALARA. COMPARISON: CT head 12/11/2021. FINDINGS: Artifacts: Exam is degraded by patient motion. Brain: Global parenchymal volume loss with chronic microvascular ischemic changes. No hemorrhage. Ventricles: Unremarkable. No ventriculomegaly. Bones/joints: Unremarkable. No acute fracture. Soft tissues: Left parotid mass measuring up to 1.9 cm. Sinuses: Mild mucosal thickening in the paranasal sinuses. Mastoid air cells: Unremarkable as visualized. No mastoid effusion. Orbits: Bilateral lens replacement. IMPRESSION: 1. No intracranial hemorrhage or other acute intracranial abnormality. 2. Global parenchymal volume loss with chronic microvascular ischemic changes. 3. Left parotid mass measuring up to 1.9 cm. This may be benign or malignant. Consider evaluation with MRI versus tissue sampling as clinically warranted. Electronically signed by: William Woodward MD 03/30/23 20:59 PM
[2023-03-30] MEDS ORDERED: ACETAMINOPHEN 325 MG TAB PO PRN (22:03)
[2023-03-30] MEDS ORDERED: GLUCOSE 10 TAB/TUBE PO PRN (22:03)
[2023-03-30] MEDS ORDERED: DEXTROSE 50% 50 ML SYRINGE IV PRN (22:03)
[2023-03-30] MEDS ORDERED: ONDANSETRON INJ 2 MG/ML 2 ML VIAL IV PRN (22:03)
[2023-03-30] MEDS ORDERED: GLUCAGON FOR INJ 1 MG VIAL SQ PRN (22:03)
[2023-03-30] MEDS ORDERED: GLUCOSE 40% GEL 15 GM TUBE PO PRN (22:03)
[2023-03-30] MEDS ORDERED: NITROGLYCERIN SL 0.4 MG/TAB TAB SL PRN (22:03)
[2023-03-30] MEDS ORDERED: CARBOHYDRATES FOR HYPOGLYCEMIA PO PRN (22:03)
[2023-03-30] MEDS ORDERED: POLYETHYLENE (MIRALAX) 17 GM PACK PO PRN (22:03)
[2023-03-30] MEDS: ENOXAPARIN INJ 40 MG/0.4 ML SYR SQ SCH (22:39)
[2023-03-30] MEDS: SODIUM CHLORIDE 0.9% 1000ML 1,000 ML IV SCH (22:39)
[2023-03-30 23:00] LABS: Prothrombin Time 11.4 Seconds (9.0-12.0)
--- NOTE | 2023-03-30 23:00 | History and Physical Report ---
DATE OF ADMISSION: 03/30/2023. CHIEF COMPLAINT: Weakness. 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 The patient says he was feeling weak and he fell and could not get up. That is the reason he was brought in here. He was feeling cold. Denies any fevers. Has frequent urination. Denies any burning micturition or blood in the urine. No abdominal pain. Normal bowel movements, no blood in the stools or black stools. Denies any chest pain or shortness of breath. Having cough and yellowish phlegm for the last 2 to 3 days. No runny nose, no sore throat, no difficulty swallowing. Appetite is okay. No headache, no blurred visions, no earache. Currently, resting comfortably and hemodynamically stable, feeling somewhat cold, requiring a blanket. ALLERGIES: No known drug allergies. PAST MEDICAL HISTORY: As mentioned above. PAST SURGICAL HISTORY: Colonoscopy, cystoscopy, dilatation of male urethral stricture, EGD, removal of bladder tumor, cystostomy, abdominal aortic aneurysm repair, vasectomy. MEDICATIONS: The patient is on aspirin 81 mg p.o. daily, atorvastatin 40 mg p.o. daily, hydrochlorothiazide 12.5 mg p.o. a.m., metformin 500 mg p.o. b.i.d., metoprolol succinate 25 mg p.o. daily, nitroglycerin 0.4 mg sublingual p.r.n. FAMILY HISTORY: Significant for mother has abdominal aortic aneurysm, heart disorder, hypertension; brother has diabetes; sister has diabetes; father has fatal NE. SOCIAL HISTORY: . Quit smoking in 2021. Smoked quarter pack a day for 40 years. Alcohol, looks like 6 beers per week. No drug use. REVIEW OF SYSTEMS: As per HPI. Rest of review of systems is negative. PHYSICAL EXAMINATION: GENERAL: The patient is of moderate build, not in acute distress. VITAL SIGNS: Temperature 37, pulse 77, respiratory rate 20, blood pressure 122/74, oxygen 95% on room air. HEENT: Pupils equal, round, and reactive to light. Oral mucosa moist. NECK: No JVD, no neck masses. CARDIOVASCULAR: S1 and S2 heard. Regular rate and rhythm. No murmur, no gallop. RESPIRATORY SYSTEM: Normal AP diameter. No accessory muscle use. No wheezing or crackles. ABDOMEN: Soft, bowel sounds present, nontender, no distention. CENTRAL NERVOUS SYSTEM: Alert and oriented. Speech is clear. No facial droop. Obeys simple commands. Moves extremities. EXTREMITIES: No edema, no erythema. LABORATORY DATA: WBC 12.5, hemoglobin 13.6, hematocrit 39.7, platelets 177. Sodium 134, potassium 4.4, chloride 100, bicarbonate 28, BUN 19, creatinine 1.2, serum glucose 124, lactate 1.5, calcium 9.3, magnesium 1.7, total bilirubin 1.2, AST 15, ALT 11, alkaline phosphatase 70. Troponin I high sensitivity 6.8. TSH 0.6. Urinalysis, +2 leukocyte esterase, bacteria negative. SARS-CoV-2 PCR negative. Influenza A and B PCR negative. RSV PCR negative. IMAGING DATA: CT of the head, : 1. No intracranial hemorrhage or other acute intracranial abnormality. 2. Global parenchymal volume loss with chronic microvascular ischemic changes. 3. Left parotid mass measuring up to 1.9 cm. This may be benign or malignant. Consider evaluation with MRI versus tissue sampling as clinically warranted. EKG: Normal sinus rhythm at a rate of 75, right bundle-branch block, no acute ST changes seen. Chest x-ray, no acute process. ASSESSMENT AND PLAN: This is an 82-year-old male who presents with weakness and fall and found to have a urinary tract infection. 1. Weakness and fall: Most likely secondary to urinary tract infection. We will follow the cultures. Empirically started on Rocephin and IV fluids. Monitor in the med tele. PT/OT when stable. 2. History of coronary artery disease: On aspirin, statin, and beta naida. 3. History of hypertension: Continue metoprolol with holding parameters. Holding hydrochlorothiazide for now and restart when the infection improves. 4. Hyperlipidemia: On statin. 5. Type 2 diabetes: Holding metformin. Placed on sliding scale. Follow the blood sugars. 6. History of abdominal aortic aneurysm: Status post repair. 7. History of high-grade bladder cancer: Status post TURBT in 2007,had regular office cystoscopy until 2012, negative cystoscopy in April 2021. CTU negative for upper tract lesions/ filling defect in April 2021. Follow with urology. History of bladder outlet obstruction, known history of urethral stricture disease, dilatation in April 2021. 8. Left parotid mass. on ct scan. Needs followed up.CAn get MRI when stable. 9.. Deep venous thrombosis prophylaxis: Placed on Lovenox. DISPOSITION: Closely monitor in the med tele. PT/OT prior to discharge. Social service to help with discharge planning. Job ID: [id number] [facility]
[2023-03-31 06:08] LABS: BUN Creatinine Ratio 16.7 (10-20); Calcium 8.6 mg/dl (8.6-10.3); Creatinine Clr Calc Pharmacy 46.8 ml/min; Est GFR (Non-African American) 60.4 ml/min; Magnesium 1.6 mg/dl (1.7-2.4); Potassium 4.2 mmol/L (3.5-5.1)
[2023-03-31 06:28] LABS: Basophils # (auto) 0.03 K/uL (0-0.2); Basophils % (auto) 0.3 %; Eosinophils # (auto) 0.03 K/uL (0-0.50); Eosinophils % (auto) 0.3 %; Hematocrit (blood only) 36.9 % (42.0-52.0); Hemoglobin 12.5 g/dl (14.0-18.0); Immature Granulocytes # (auto) 0.05 K/uL (0.01-0.20); Immature Granulocytes % (auto) 0.5 %; Lymphocytes # (auto) 1.68 K/uL (1.2-3.4); Lymphocytes % (auto) 16.2 %; Mean Corpuscular Hemoglobin 32.2 pg (25.0-34.0); Mean Corpuscular Hgb Conc 33.9 g/dL (32.0-36.0); Mean Corpuscular Volume 95.1 fL (80.0-100.0); Mean Platelet Volume 9.8 fL (9.4-12.4); Monocytes # (auto) 1.09 K/uL (0.11-0.59); Monocytes % (auto) 10.5 %; Neutrophils # (auto) 7.47 K/uL (1.40-6.50); Neutrophils % (auto) 72.2 %; Platelet Count 159 K/uL (130-400); RDW Coefficient of Variation 13.2 % (11.5-14.5); RDW Standard Deviation 46.1 fL (36.4-46.3); Red Blood Count 3.88 M/uL (4.70-6.10); White Blood Count 10.35 K/ul (4.8-10.8)
[2023-03-31 06:31] LABS: Estimated Average Glucose 140 mg/dl; Hemoglobin A1C 6.5 % (4.5-5.6)
[2023-03-31] MEDS: MAGNESIUM SULFATE / D5W 1 GM/100 ML BAG IV SCH ×2 (07:13→09:36)
[2023-03-31] MEDS: INSULIN ASPART PER UNIT CHARGE SC SCH ×4 (08:26→21:00)
[2023-03-31] MEDS: SODIUM CHLORIDE 0.9% 1000ML 1,000 ML IV SCH (08:27)
[2023-03-31] MEDS: METOPROLOL SUCC 25MG EXT REL TAB PO SCH (08:28)
[2023-03-31] MEDS: ATORVASTATIN 40 MG TAB PO SCH (08:28)
[2023-03-31] MEDS: ASPIRIN 81 MG ECTAB PO SCH (08:28)
--- NOTE | 2023-03-31 13:00 | Hospitalist Progress Note ---
Date of Service March 31, 2023 Assessment & Plan (1) Urinary tract infection: (2) Diabetes mellitus, type II: (3) HTN (hypertension): Plan 82-year-old male who presented to ED with weakness and fall and found to have UTI. UTI-prior urine culture with Citrobacter pansensitive. UA suggestive of UTI. Currently on ceftriaxone based on prior culture results. Follow-up urine culture for antibiotic management. Weakness/fall in setting of UTI-states resolved. PT OT eval History of CAD-stable, continue aspirin, statin, beta-naida Essential hypertension-continue metoprolol. Resume hydrochlorothiazide when indicated Diabetes mellitus type 2, well controlled-A1c 6.5, continue sliding scale insulin. Resume metformin at discharge. History of AAA s/p repair History of high-grade bladder cancer status post TURBT in 2007-follow with urology Left parotid mass on CT-needs follow-up. OP MRI with PCP patient desires Hypomagnesemia-replete, recheck in a.m. DVT prophylaxis-subcu Lovenox Disposition-pending final culture results, PT evaluation Admission and Anticipated Discharge Date Admission Date: March 30, 2023 Subjective Patient was seen and examined at bedside. He feels much better. States his weakness is resolved and feels like he can go home. He is asking what he can do to prevent recurrent urinary tract infections. No fever, chills, chest pain, flank pain, shortness of breath, nausea or vomiting Review of Systems Review of Systems: All systems reviewed & are unremarkable except as noted in Subjective Physical Exam Physical Exam: General: Lying comfortably in bed, not in distress, on room air HEENT: EOMI, DOMINIC, MMM Chest: Clear breath sounds bilaterally, no wheezes or crackles CVS: Regular rate and rhythm, normal heart sounds, no murmur Abdomen: Soft, non tender, not distended, normal bowel sounds Neuro: Awake, alert, oriented, conversing well, non focal Extremities: No cyanosis, clubbing or edema Genitourinary: no CVA tenderness Results & Data Results & Data Vital Signs (Past 12 Hours) Vital Signs Temp Pulse Pulse Resp BP BP Pulse Ox 03/31/23 11:01 36.8 C 85 18 147/79 H 97 03/31/23 10:15 03/31/23 07:34 37.0 C 77 18 99/62 L 91 03/31/23 07:07 77 03/31/23 03:28 37.4 C 86 20 128/78 97 03/31/23 03:11 37.4 C 83 20 100/59 L 91 O2 Del Method 03/31/23 11:01 Room Air 03/31/23 10:15 Room Air 03/31/23 07:34 Room Air 03/31/23 07:07 03/31/23 03:28 Room Air 03/31/23 03:11 Room Air Laboratory Results Short CBC 03/30/23 03/31/23 Range/Units 17:30 05:30 WBC 12.59 H 10.35 (4.8-10.8) K/ul Hgb 13.6 L 12.5 L (14.0-18.0) g/dl Hct 39.7 L 36.9 L (42.0-52.0) % Plt Count 177 159 (130-400) K/uL BMP 03/30/23 03/31/23 17:30 05:30 Sodium 134 L 137 Potassium 4.4 4.2 Chloride 100 102 Carbon Dioxide 28 26 BUN 19 19 Creatinine 1.23 1.14 Glucose 124 H 112 H Calcium 9.3 8.6 Liver Function 03/30/23 Range/Units 17:30 Total Bilirubin 1.2 H (0.2-1.0) mg/dl AST 15 (13-39) U/L ALT 11 (7-52) U/L Alkaline Phosphatase 70 (34-104) U/L Albumin 4.1 (3.4-5.0) gm/dl Urine 03/30/23 Range/Units 19:25 Urine Color Yellow Urine Appearance Clear (Clear) Urine pH 7.5 (4.5-7.5) Ur Specific [place] 1.006 (1.000-1.030) Urine Protein Negative (Negative) Urine Glucose (UA) Negative (Negative) Medications Administered Current Inpatient Medications Acetaminophen (Acetaminophen 325 Mg Tab) 650 mg PO Q4H PRN PRN Reason: Pain or Fever Stop: 04/29/23 22:02 Aspirin (Aspirin 81 Mg Ectab) 81 mg PO DAILY [facility] Stop: 04/30/23 08:59 Last Admin: 03/31/23 08:28 Dose: 81 mg Atorvastatin Calcium (Atorvastatin 40 Mg Tab) 40 mg PO QAM [facility] Stop: 04/30/23 08:59 Last Admin: 03/31/23 08:28 Dose: 40 mg Dextrose (Dextrose 50% 50 Ml Syringe) 25 - 50 ml IV UD PRN; Protocol PRN Reason: Hypoglycemia Protocol Stop: 04/29/23 22:02 Enoxaparin Sodium (Enoxaparin Inj 40 Mg/0.4 Ml Syr) 40 mg SQ Q24H [facility] Stop: 04/29/23 22:02 Last Admin: 03/30/23 22:39 Dose: Not Given Glucagon (Glucagon For Inj 1 Mg Vial) 1 mg SQ UD PRN; Protocol PRN Reason: Hypoglycemia Protocol Stop: 04/29/23 22:02 Glucose (Glucose 10 Tab/Tube) 4 - 8 tab PO UD PRN; Protocol PRN Reason: Hypoglycemia Treatment Stop: 04/29/23 22:02 Glucose (Glucose 40% Gel 15 Gm Tube) 15 - 30 gm PO UD PRN; Protocol PRN Reason: Hypoglycemia Protocol Stop: 04/29/23 22:02 Sodium Chloride (Nss 1000ml) 1,000 mls @ 100 mls/hr IV .Q10H [facility] Stop: 03/31/23 18:02 Last Admin: 03/31/23 08:27 Dose: 100 mls/hr Ceftriaxone Sodium 2,000 mg/ (Dextrose) 70 mls @ 100 mls/hr IV Q24H [facility]; Protocol Stop: 04/10/23 19:59 Insulin Aspart (Insulin Aspart Per Unit Charge) 0 units SC ACHS [facility] Stop: 04/30/23 07:29 Last Admin: 03/31/23 12:18 Dose: 2 units Metoprolol Succinate (Metoprolol Succ 25mg Ext Rel Tab) 25 mg PO QAM [facility] Stop: 04/30/23 08:59 Last Admin: 03/31/23 08:28 Dose: Not Given Miscellaneous (Carbohydrates For Hypoglycemia ) 15 - 30 gm PO UD PRN PRN Reason: Hypoglycemia Protocol Stop: 04/29/23 22:02 Nitroglycerin (Nitroglycerin Sl 0.4 Mg/Tab Tab) 0.4 mg SL UD PRN PRN Reason: Chest Pain Stop: 04/29/23 22:02 Ondansetron HCl (Ondansetron Inj 2 Mg/Ml 2 Ml Vial) 4 mg IV Q6H PRN PRN Reason: Nausea Stop: 04/29/23 22:02 Polyethylene Glycol (Polyethylene (Miralax) 17 Gm Pack) 17 gm PO DAILY PRN PRN Reason: Constipation Stop: 04/29/23 22:02 (1) Urinary tract infection Hematuria presence: with hematuria Urinary tract infection type: site unspecified Qualified Code(s): N39.0 - Urinary tract infection, site not specified; R31.9 - Hematuria, unspecified
[2023-03-31] MEDS: MAGNESIUM OXIDE 400 MG TAB PO SCH ×2 (14:25→19:47)
--- NOTE | 2023-03-31 19:13 | Electrocardiogram Report ---
Test Reason : Blood Pressure : / mmHG Vent. Rate : 075 BPM Atrial Rate : 075 BPM P-R Int : 172 ms QRS Dur : 114 ms QT Int : 376 ms P-R-T Axes : 047 029 038 degrees QTc Int : 419 ms Poor data quality, interpretation may be adversely affected Normal sinus rhythm Right bundle branch block Abnormal ECG When compared with ECG of 19-APR-2022 06:26, Premature ventricular complexes are no longer Present T wave amplitude has decreased in Anterior leads Confirmed by Misael Medrano ([id number]) on 03/31/2023 7:12:42 PM Referred By: REFERRED SELF Confirmed By:Misael Medrano
[2023-03-31] MEDS ORDERED: cefTRIAXone SODIUM 2,000 MG in DEXTROSE 5% 50 ML IV SCH (20:00)
[2023-03-31] MEDS: ENOXAPARIN INJ 40 MG/0.4 ML SYR SQ SCH (21:01)
--- NOTE | 2023-04-01 08:49 | Hospitalist Progress Note ---
Date of Service April 01, 2023 Assessment & Plan (1) Urinary tract infection: (2) Diabetes mellitus, type II: (3) HTN (hypertension): Plan Left parotid mass 82-year-old male who presented to ED with weakness and fall and found to have UTI. UTI-prior urine culture with Citrobacter pansensitive. UA suggestive of UTI. Currently on ceftriaxone based on prior culture results. Follow-up urine culture for antibiotic management. Weakness/fall in setting of UTI-states resolved. PT OT eval History of CAD-stable, continue aspirin, statin, beta-naida Essential hypertension-continue metoprolol. Resume hydrochlorothiazide when indicated Diabetes mellitus type 2, well controlled-A1c 6.5, continue sliding scale insulin. Resume metformin at discharge. History of AAA s/p repair History of high-grade bladder cancer status post TURBT in 2007-follow with urology Left parotid mass on CT-needs follow-up. OP MRI with PCP patient desires Hypomagnesemia-replete, recheck in a.m. DVT prophylaxis-subcu Lovenox Disposition-pending final culture results, PT evaluation Admission and Anticipated Discharge Date Admission Date: March 30, 2023 Results & Data Results & Data Vital Signs (Past 12 Hours) Vital Signs Temp Pulse Pulse Resp BP BP Pulse Ox 04/01/23 08:00 36.7 C 75 18 129/62 97 04/01/23 07:28 65 04/01/23 04:09 37.5 C 79 18 120/67 94 03/31/23 23:04 36.9 C 76 18 130/73 96 03/31/23 23:47 78 03/31/23 22:20 O2 Del Method 04/01/23 08:00 Room Air 04/01/23 07:28 04/01/23 04:09 Room Air 03/31/23 23:04 Room Air 03/31/23 23:47 03/31/23 22:20 Room Air (1) Urinary tract infection Hematuria presence: with hematuria Urinary tract infection type: site unspeci fied Qualified Code(s): N39.0 - Urinary tract infection, site not specified; R31.9 - Hematuria, unspecified
[2023-04-01] MEDS: MAGNESIUM OXIDE 400 MG TAB PO SCH (09:30)
[2023-04-01] MEDS: ASPIRIN 81 MG ECTAB PO SCH (09:30)
[2023-04-01] MEDS: METOPROLOL SUCC 25MG EXT REL TAB PO SCH (09:31)
[2023-04-01] MEDS: INSULIN ASPART PER UNIT CHARGE SC SCH ×2 (09:33→12:09)
[2023-04-01] MEDS: ATORVASTATIN 40 MG TAB PO SCH (11:12)
--- NOTE | 2023-04-01 12:46 | Hospitalist Progress Note ---
Date of Service April 01, 2023 Assessment & Plan (1) Urinary tract infection: (2) Diabetes mellitus, type II: (3) HTN (hypertension): Plan: per previous hospitalist notes with addendum: (1) Urinary tract infection: (2) Diabetes mellitus, type II: (3) HTN (hypertension): Plan 82-year-old male who presented to ED with weakness and fall and found to have UTI. UTI-prior urine culture with Citrobacter pansensitive. UA suggestive of UTI. Currently on ceftriaxone based on prior culture results. Follow-up urine culture for antibiotic management. Urine culture: gram positive cocci Blood culture: pending transition from IV Ceftri Day 2 to Cefdinir x 8 more days to complete 10 day course will ff up final culture report Probiotics daily ff up with PCP in 1 week Weakness/fall in setting of UTI-states resolved. History of CAD-stable, continue aspirin, statin, beta-naida Essential hypertension-continue metoprolol. Diabetes mellitus type 2, well controlled-A1c 6.5, Resume metformin at discharge. History of AAA s/p repair History of high-grade bladder cancer status post TURBT in 2007-follow with urology Left parotid mass on CT-needs follow-up. OP MRI with PCP patient desires Hypomagnesemia-repleted DVT prophylaxis-subcu Lovenox Disposition- d/c home today ff up with PCP in 1 week Admission and Anticipated Discharge Date Admission Date: March 30, 2023 Subjective ff up for weakness, possible UTI, etc seen resting in chair, comfortable not in distress, comfortable denies urinary symptoms denies weakness, ambulating in the halls with no problems no fever/chills, abdominal pain , nausea/vomiting no chest pain, dyspnea, palpitations, dizziness no other symptoms states he is ready and is adamant on being discharged today Review of Systems Review of Systems: all noted and negative except for above Physical Exam Physical Exam: all noted and negative except for above Results & Data Results & Data Vital Signs (Past 12 Hours) Vital Signs Temp Pulse Pulse Resp BP BP Pulse Ox 04/01/23 08:00 36.7 C 75 18 129/62 97 04/01/23 07:28 65 04/01/23 04:09 37.5 C 79 18 120/67 94 O2 Del Method 04/01/23 08:00 Room Air 04/01/23 07:28 04/01/23 04:09 Room Air all noted and reviewed including below (1) Urinary tract infection Hematuria presence: with hematuria Urinary tract infection type: site unspecified Qualified Code(s): N39.0 - Urinary tract infection, site not specified; R31.9 - Hematuria, unspecified
--- NOTE | 2023-04-01 12:55 | Discharge Summary ---
Discharge Summary Date of Service April 01, 2023 Notes For Next Care Provider PATIENT NEEDS MRI OF THE LEFT PAROTID GLAND TO EVALUATED MASS SEEN ON CT SCAN. PLEASE REFER TO ENT WELL. Medication Changes From Visit NEW MEDICATION: CEFDINIR 300MG BID X 8 DAYS Admission HPI Per Admitting Provider HISTORY OF PRESENT ILLNESS: This is an 82-year-old male with past medical history significant for type 2 diabetes, hyperlipidemia, emphysema, history of CAD, aneurysm of coronary artery, history of hypertension, structure of male urethra, history of status post repair of abdominal aortic aneurysm, history of bladder cancer, who presents with weakness and fall at home. The patient says he was feeling weak and he fell and could not get up. That is the reason he was brought in here. He was feeling cold. Denies any fevers. Has frequent urination. Denies any burning micturition or blood in the urine. No abdominal pain. Normal bowel movements, no blood in the stools or black stools. Denies any chest pain or shortness of breath. Having cough and yellowish phlegm for the last 2 to 3 days. No runny nose, no sore throat, no difficulty swallowing. Appetite is okay. No headache, no blurred visions, no earache. Currently, resting comfortably and hemodynamically stable, feeling somewhat cold, requiring a blanket. Admission Exam Per Admitting Provider GENERAL: The patient is of moderate build, not in acute distress. VITAL SIGNS: Temperature 37, pulse 77, respiratory rate 20, blood pressure 122/74, oxygen 95% on room air. HEENT: Pupils equal, round, and reactive to light. Oral mucosa moist. NECK: No JVD, no neck masses. CARDIOVASCULAR: S1 and S2 heard. Regular rate and rhythm. No murmur, no gallop. RESPIRATORY SYSTEM: Normal AP diameter. No accessory muscle use. No wheezing or crackles. ABDOMEN: Soft, bowel sounds present, nontender, no distention. CENTRAL NERVOUS SYSTEM: Alert and oriented. Speech is clear. No facial droop. Obeys simple commands. Moves extremities. EXTREMITIES: No edema, no erythema. Principal Dx & Hospital Course #1 = Principal Diagnosis (1) Urinary tract infection: (2) Diabetes mellitus, type II: (3) HTN (hypertension): per previous hospitalist notes with addendum: (1) Urinary tract infection: (2) Diabetes mellitus, type II: (3) HTN (hypertension): Plan 82-year-old male who presented to ED with weakness and fall and found to have UTI. UTI-prior urine culture with Citrobacter pansensitive. UA suggestive of UTI. Currently on ceftriaxone based on prior culture results. Follow-up urine culture for antibiotic management. Urine culture: gram positive cocci Blood culture: pending transition from IV Ceftri Day 2 to Cefdinir x 8 more days to complete 10 day course will ff up final culture report Probiotics daily ff up with PCP in 1 week Weakness/fall in setting of UTI-states resolved. History of CAD-stable, continue aspirin, statin, beta-naida Essential hypertension-continue metoprolol. Diabetes mellitus type 2, well controlled-A1c 6.5, Resume metformin at discharge. History of AAA s/p repair History of high-grade bladder cancer status post TURBT in 2007-follow with urology Left parotid mass on CT-needs follow-up. OP MRI with PCP patient desires Hypomagnesemia-repleted DVT prophylaxis-subcu Lovenox Disposition- d/c home today ff up with PCP in 1 week Discharge Exam General- oriented x 3, not in distress, speaks in sentences with no effort or accessory muscle use Eyes- anicteric Neck- no JVD Lungs- clear breath sounds bilaterally, no rales/wheezes Heart- normal rate, regular rhythm; no murmurs Abdomen- normal bowel sounds, nondistended, soft, nontender Extremities- no pretibial edema, no calf tenderness Neuro- alert, oriented x 3; no gross focal neurologic deficits Skin- warm & dry Updated Medication List Medication Instructions Recorded Confirmed Type aspirin 81 mg chewable tablet 81 mg PO DAILY 10/04/19 03/30/23 History atorvastatin 40 mg tablet 40 mg PO QAM 10/04/19 03/30/23 History metformin 500 mg tablet 500 mg PO BIDM 10/04/19 03/30/23 History metoprolol succinate 25 mg 25 mg PO QAM 10/04/19 03/30/23 History tablet,extended release 24 hr nitroglycerin 0.4 mg sublingual 0.4 mg sublingual DIRECTED PRN 10/04/19 03/30/23 History tablet Chest Pain hydrochlorothiazide 12.5 mg capsule 12.5 mg PO QAM 03/30/23 03/30/23 History cefdinir 300 mg capsule 300 mg PO BID 8 days #16 caps 04/01/23 Rx Hospital Stay Data Consultations 03/30/23 20:11 ED Decision to Admit Stat Diagnostic Imagining Performed 03/30/23 17:20 CT head/brain wo con Stat CLINICAL HISTORY: Reason for exam: Weakness. TECHNIQUE: Axial computed tomography images of the head/brain without intravenous contrast. CTDI is 38.39 mGy and DLP is 691.05 mGy-cm. Automated exposure control was utilized for the study. A dose lowering technique was utilized adhering to the principles of ALARA. COMPARISON: CT head 12/11/2021. FINDINGS: Artifacts: Exam is degraded by patient motion. Brain: Global parenchymal volume loss with chronic microvascular ischemic changes. No hemorrhage. Ventricles: Unremarkable. No ventriculomegaly. Bones/joints: Unremarkable. No acute fracture. Soft tissues: Left parotid mass measuring up to 1.9 cm. Sinuses: Mild mucosal thickening in the paranasal sinuses. Mastoid air cells: Unremarkable as visualized. No mastoid effusion. Orbits: Bilateral lens replacement. IMPRESSION: 1. No intracranial hemorrhage or other acute intracranial abnormality. 2. Global parenchymal volume loss with chronic microvascular ischemic changes. 3. Left parotid mass measuring up to 1.9 cm. This may be benign or malignant. Consider evaluation with MRI versus tissue sampling as clinically warranted. Electronically signed by: William Woodward MD 03/30/23 20:59 PM Pending Results Patient Have Any Pending Studies at Discharge: Yes Discharge Instructions Given to Patient (Per Discharging Provider) PLEASE REFER TO YOUR NEW MEDICATION LIST AND FOLLOW INSTRUCTIONS CAREFULLY. YOUR NEW MEDICATIONS INCLUDE: CEFDINIR- antibiotic for urinary tract infection Take a probiotic daily x 1 month. Please drink plenty of water. You need to have an MRI of the Left Parotid Gland to evaluate a mass noted on your CT scan. Your primary care physician can arrange this. PLEASE CALL YOUR PRIMARY CARE PHYSICIAN OR RETURN TO THE ER IF WITH WORSENING OF SYMPTOMS, INCLUDING fever/chills, urinary problems, abdominal pain, nausea/vomiting, etc FOLLOW UP WITH PRIMARY CARE PHYSICIAN in 1 WEEK/ Total Time Total Time Spent Total Time Spent (In Minutes): > 30 minutes
== END 2023-04-01 14:59 | disposition home or self-care (01) ==
LOC: ED 16:47 → 2W 21:01 → INTOOBSV 21:01 → SUATTDRO 21:01 → 2W 21:38